=== PATIENT | female | born 1975 | race Caucasian/White ===

== ENCOUNTER 2024-01-01 11:28 | Outpatient (CLI) | payer BC, SELFPAY ==
--- NOTE | 2024-01-01 | US_ITS ---
FINAL REPORT CLINICAL HISTORY: .SPURADIC REDDNESS/DISCOLORATION OF FEET FINDINGS: COMPLETE ANKLE/BRACHIAL INDICES BILATERAL Ankle brachial indices were obtained. The right MIRNA is 1.1. The left MIRNA is 1.2. IMPRESSION: ABIs are within normal limits bilaterally. Reviewed, Interpreted and Dictated by Ishan Clements III, MD Transcribed by Mayra Christianson Authenticated and [facility]
== END 2024-01-01 23:59 | disposition home or self-care (01) ==
PROVIDERS: PCP Nurse Practitioner Family; Visit Provider Nurse Practitioner Family
DX: I73.9 Peripheral vascular disease, unspecified (principal)
CPT/HCPCS: 93923

== ENCOUNTER 2025-02-27 02:22 | Observation (INO) | payer OTHER, SELFPAY ==
[2025-02-27] VITALS (21 sets, daily range): BP systolic 111–147; BP diastolic 62–97; PULSE 18–80; RESP 14–20; TEMP 36.4–38; O2SAT 94–100; BMI 25.6; BMI 26.9
--- NOTE | 2025-02-27 02:28 | CT_ITS ---
PROCEDURE INFORMATION: Exam: CT Abdomen And Pelvis With Contrast Exam date and time: 02/27/2025 3:17 AM Age: 49 years old Clinical indication: Abdominal pain; Additional info: trouble passing gallstone , ruq pain, nausea TECHNIQUE: Imaging protocol: Computed tomography of the abdomen and pelvis with contrast. Radiation optimization: All CT scans at this facility use at least one of these dose optimization techniques: automated exposure control; mA and/or kV adjustment per patient size (includes targeted exams where dose is matched to clinical indication); or iterative reconstruction. Contrast material: ISOVUE; Contrast volume: 75 ml; Contrast route: IV; COMPARISON: US ARTERIAL LOWER EXT REST 01/01/2024 11:38 AM FINDINGS: Liver: Normal. No mass. Gallbladder and biliary ducts: The gallbladder is hydropic, no radiopaque stones are noted. Some adjacent edema is present however. The common bile duct measures 6 mm. Pancreas: Normal. No ductal dilation. Spleen: Normal. No splenomegaly. Adrenal glands: Normal. No mass. Kidneys and ureters: Normal. No hydronephrosis. Stomach and bowel: Unremarkable. No obstruction. No mucosal thickening. Appendix: No evidence of appendicitis. Intraperitoneal space: Unremarkable. No free air. No significant fluid collection. Vasculature: Unremarkable. No abdominal aortic aneurysm. Lymph nodes: Unremarkable. No enlarged lymph nodes. Urinary bladder: Unremarkable as visualized. Reproductive: Unremarkable as visualized. Bones/joints: Unremarkable. No acute fracture. Soft tissues: Unremarkable. IMPRESSION: Hydropic gallbladder with pericholecystic edema, recommend right upper quadrant ultrasound for further evaluation of possible acute cholecystitis.
--- OUTSIDE RECORDS SUMMARY | 2025-02-27 02:28 | XMS_ITS | Data Portability ---
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 Plan of Treatment Reminders Order Date Submit Date Provider Last Modified By Organization Details Last Modified Time Details Appointments None recorde d. Lab glycohe moglobi n, total, blood 2021 [facility], [address] [place] [address], [id number], 14:43:09 lipid panel, serum 2021 [facility], [address] [place] [address], [address], 14:52:46 CBC w/ auto diff 2021 022 [facility], [address] [place] [address], [address], 14:46:00 CMP, serum or plasma 2021 022 [facility], [address] [place] [address], [address], 14:52:48 TSH, serum or plasma 2021 022 [facility], [address] [place] [address], [address], 2 14:55:15 surgica l patholo gy study 2020 021 [facility], [address] [place] [address], [address], 1 09:47:02 cytolog y, vaginal /cervic al 2020 021 [facility], [address] [place] [address], [address], 1 08:32:02 HPV DNA, high-ri sk 2020 021 [facility], [address] [place] [address], [address], 1 15:35:54 Referral gastroe nterolo gist referra l 2021 [facility]22 [facility], [address], [place] [address], [place], [address], 2 09:03:57 Procedures None recorde d. Surgeries None recorde d. Imaging MAMMO, screeni ng, tomosyn thesis, bilater al, w/ CAD 2020 021 [facility], [address] [place] [address], [address], 1 10:05:08 Medication Orders famotid ine 20 mg tablet 2021 022 [email or web address] 9 [facility] [id number], [address], [id number], 2 15:40:55 bupropi on HCl XL 150 mg 24 hr tablet, extende d release 2020 021 [facility] [employer] [facility][id number], [address], [phone], 15:28:53 Patient TargetsNo targets recorded. Patient Instructions Encounter Date Encounter Id Patient Instructions Last Modified By Organization Details Last Modified Time 10/16/2020 [id number] pap smear with cotesting repeat 3y if normal mammogram scheduled menopausal symptom- discussed OTC, hormone replacement and SSRI she would like to try Wellbutrin has friends that use it and has really helped. Start wellbutrin daily cervical polyp removed today sent to pathology f/u med check 3 mos [email or web address] Not available 10/16/2020 15:32:00 11/09/2020 [id number] Risks/Benefits/O p tions/Side Effects of diagnosis and treatment discussed. 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 Not available 11/09/2020 11:30:28 11/19/2021 [id number] Body Mass Index: Care Instructions- [email or web address] Not available 11/19/2021 15:40:55 Reason for Referral Rn Document Improvement Referral for Screening for malignant neoplasm of colon Referring Physician: Sunitha Henderson, Family Medicine, Encounter Date: 11/19/2021 Results Created Date Observation Date Name Description Value Unit Range Abnormal Flag Note LastModifiedBy Organization Detail LastModifiedTime 10/17/19 21 10/16/2020 surgi elisabet patho logy study surgical SEE BELOW Depar tment of Patho logy Surgi elisabet Patho logy Repor t NAME: NERY PEDRO SA PATH. :[id number] Copy to: Diagn osis: Cervi elisabet polyp : -Juan F gn endoc ervic al gland ular polyp . SOURC E OF SPECI MEN: CERVI ELISABET POLYP CLINI ELISABET INFOR MATIO N: N84.1 Gross Descr iptio n: Recei maru in forma cristin label ed with the bie nt's name and desig nated as cerv ical polyp is a singl e fragm ent of pale kelley tissu e measu ring 0.8 cm. Entir werner submi tted in one casse tte. RACHELLE 10/17 11:10 AM Micro scopi c Descr iptio n: A micro scopi c exami natio n was perfo rmed with findi ngs as indic ated in the diagn osis. ADÁN FELIPE MD Clare d Out Date: 10/18 09:45 Page 1 of 1 Not Available [facility] [address] [place] [address], [id number], 10/18/2020 09:47:02 10/17/19 21 10/18/2020 HPV DNA, high- risk high risk HPV Not Detect ed not detect ed normal Metho dolog y: Trans cript ion-M ediat ed Ampli ficat ion This assay detec ts E6/E7 viral messe nger RNA (mRNA ) from 14 high- risk HPV types (16,1 8,31, 33,35 ,39,4 5,51, 52,56 ,58,5 9,66, 68). The rosemary tical perfo rmanc e hafsa cteri stics of this assay have been deter mined by [facility]. The modif icati ons have not been clear ed or appro maru by the FDA. This assay has been valid ated pursu ant to the CLIA regul ation s and is used for clini elisabet purpo ses. For addit ional infor orlando dangelo e refer to http: //[facility] felix ivanque stdia gnost ics.c om/fa q/FAQ 129d4 (This link if provi ded for infor laverne cook/ educa nelson l purpo ses only. ) TEST PERFO RMED AT: [facility] MAUREEN W[address]KIN[address] [address] MARYCARMEN Fox MD Not Available [facility] [place], [address], 10/18/2020 15:35:54 10/17/1910/16/2020 PAP SMEAR Pap smear SEE BELOW Depar tment of Patho logy GYNEC OLOGI ELISABET CYTOL OGY REPOR T NAME: GONZALEZ PEDROMARY HARRIS PATHO LOGY NO.: [id number] Copy to: SOURC E OF SPECI MEN: CERVI ELISABET/E NDOCE RVICA L-THI N PREP RELEV ANT HISTO RY: No LMP given . Comme nt: HPV CO-TE STING IF CHARLES L, REPEA T IN 3 YRS SPECI MEN ADEQU ACY SATIS FACTO RY FOR EVALU ATION ENDOC ERVIC AL/TR ANSFO RMATI ON ZONE COMPO NENT ABSEN T GENER AL CATEG ORIZA TION NEGAT QUEENIE FOR INTRA EPITH ELIAL LESIO N OR MALIG JOSE LUIS RELAT ED LABOR ATORY RESUL TS Test Name Resul t Colle cted D and T HIGH RISK HPV Not Detec mini 2020 15:39 ARACELI RA L DINGE SS, CT (ASCP ) Clare d Out Date: 10/19 08:30 Cervi elisabet/v agina l cytol ogy is a scree heather test with a recog nized false negat queenie rate. New techn ologi es may decre ase, but will not elimi marie false negat queenie resul ts. Regul ar cytol ogy scree heather is recom yesi d to minim ize false negat queenie resul ts. The ThinP rep(R ) Imagi ng syste m is used to harris t in prima ry cervi elisabet cance r scree heather of ThinP rep(R ) Pap test slide s. Page 1 of 1 Not Available [facility] [address] [place] [address], [address], 10/19/2020 08:32:02 11/21/19 22 11/20/2021 GLYCO HEMOG LOBIN A1C glyco HGB A1C 5.2 % 0.0-5. 6 normal Not Available [facility] [address] [place], [address], 11/20/2021 14:43:09 11/21/19 22 11/20/2021 GLYCO HEMOG LOBIN A1C estimated avg. glucose 103 mg/dL _(elisabet c) normal A1c value s betwe en 5.7% to 6.4% indic ate predi abete s. Resul ts 6.5% or great er is diagn ostic of diabe keisha. Ameri can Diabe keisha Assoc iatio n (diab etes. org) Not Available [facility] [address] [place] [address], [address], 11/20/2021 14:43:09 11/21/19 22 11/20/2021 COMPL ETE BLOOD COUNT white blood cells 6.3 K/uL 3.8-10 .8 normal Not Available [facility] [address] [place] [address], [address], 11/20/2021 14:46:00 11/21/19 22 11/20/2021 COMPL ETE BLOOD COUNT red blood cells 4.86 M/uL 3.80-5 .20 normal Not Available [facility] [address] [place] [address], [address], 11/20/2021 14:46:00 11/21/19 22 11/20/2021 COMPL ETE BLOOD COUNT hemoglobin 14.5 g/dL 12.0-1 6.0 normal Not Available [facility] [address] [place] [address], [address], 11/20/2021 14:46:00 11/21/19 22 11/20/2021 COMPL ETE BLOOD COUNT hematocrit 41.7 % 35.0-4 7.0 normal Not Available [facility] [address] [place] [address], [address], 11/20/2021 14:46:00 11/21/19 22 11/20/2021 COMPL ETE BLOOD COUNT MCV 86 fL 80-100 normal Not Available [facility] [address] [place] [address], [address], 11/20/2021 14:46:00 11/21/19 22 11/20/2021 COMPL ETE BLOOD COUNT MCH 30 pg 26-35 normal Not Available [facility] [address] [place] [address], [address], 11/20/2021 14:46:00 11/21/19 22 11/20/2021 COMPL ETE BLOOD COUNT MCHC 35 g/dL 32-36 normal Not Available [facility] [address] [place] [address], [address], 11/20/2021 14:46:00 11/21/19 22 11/20/2021 COMPL ETE BLOOD COUNT RDW 13.7 % 11.0-1 5.0 normal Not Available [facility] [address] [place] [address], [address], 11/20/2021 14:46:00 11/21/19 22 11/20/2021 COMPL ETE BLOOD COUNT MPV 8.6 fL 6.2-10 .5 normal Not Available [facility] [address] [place] [address], [address], 11/20/2021 14:46:00 11/21/19 22 11/20/2021 COMPL ETE BLOOD COUNT platelet count 261 K/uL 130-40 0 normal Not Available [facility] [address] [place] [address], [address], 11/20/2021 14:46:00 11/21/19 22 11/20/2021 COMPL ETE BLOOD COUNT neutrophil,a bsolute 3.6 K/uL 1.6-8. 4 normal Not Available [facility] [address] [place] [address], [address], 11/20/2021 14:46:00 11/21/19 22 11/20/2021 COMPL ETE BLOOD COUNT lymphocyte,a bsolute 1.9 K/uL 0.4-5. 1 normal Not Available [facility] [address] [place] [address], [address], 11/20/2021 14:46:00 11/21/19 22 11/20/2021 COMPL ETE BLOOD COUNT monocyte,abs olute 0.6 K/uL 0.0-1. 2 normal Not Available [facility] [address] [place] [address], [address], 11/20/2021 14:46:00 11/21/19 22 11/20/2021 COMPL ETE BLOOD COUNT eosinophil,a bsolute 0.2 K/uL 0.0-0. 8 normal Not Available [facility] [address] [place] [address], [address], 11/20/2021 14:46:00 11/21/19 22 11/20/2021 COMPL ETE BLOOD COUNT basophil,abs olute 0.0 K/uL 0.0-0. 3 normal Not Available [facility] [address] [place] [address], [address], 11/20/2021 14:46:00 11/21/19 22 11/20/2021 COMPL ETE BLOOD COUNT % neutrophils 56.5 % 42.0-7 8.0 normal Not Available [facility] [address] [place] [address], [address], 11/20/2021 14:46:00 11/21/19 22 11/20/2021 COMPL ETE BLOOD COUNT % lymphocytes 30.4 % 11.0-4 7.0 normal Not Available [facility] [address] [place] [address], [address], 11/20/2021 14:46:00 11/21/19 22 11/20/2021 COMPL ETE BLOOD COUNT % monocytes 9.7 % 0.0-11 .0 normal Not Available [facility] [address] [place] [address], [address], 11/20/2021 14:46:00 11/21/19 22 11/20/2021 COMPL ETE BLOOD COUNT % eosinophils 2.9 % 0.0-7. 0 normal Not Available [facility] [address] [place] [address], [address], 11/20/2021 14:46:00 11/21/19 22 11/20/2021 COMPL ETE BLOOD COUNT % basophils 0.5 % 0.0-3. 0 normal Not Available [facility] [address] [place] [address], [address], 11/20/2021 14:46:00 11/21/19 22 11/20/2021 COMPL ETE BLOOD COUNT nucleated red cells 0.0 % 0.0-0. 9 normal Not Available [facility] [address] [place] [address], [address], 11/20/2021 14:46:00 11/21/19 22 11/20/2021 COMPL ETE BLOOD COUNT nucleated RBCs, absolute 0.00 K/uL not estab. normal Not Available [facility] [address] [place] [address], [address], 11/20/2021 14:46:00 11/21/19 22 11/20/2021 LIPID PROFI LE HDL cholesterol 47 abnormal Male > 39 mg/dL Femal e > 49 mg/dL Not Available [facility] [address] [place] [address], [address], 11/20/2021 14:52:45 11/21/19 22 11/20/2021 LIPID PROFI LE triglyceride s 185 mg/dL 0-149 high TRIGL YCERI DE RANGE S CHARLES L: < 150 BORDE RLINE HIGH: 150 - 199 HIGH: 200 - 499 VERY HIGH: > OR = 500 Not Available [facility] [address] [place] [address], [address], 11/20/2021 14:52:45 11/21/19 22 11/20/2021 LIPID PROFI LE cholesterol 245 mg/dL 0-199 high HERIBERTO STERO L (TOTA L) RANGE S ADA ABLE: < 200 BORDE RLINE : 200 - 239 HIGHE R RISK: > 239 Not Available [facility] [address] [place] [address], [address], 11/20/2021 14:52:45 11/21/19 22 11/20/2021 LIPID PROFI LE LDL cholesterol 161 mg/dL _(elisabet c) 0-99 high LDL HERIBERTO STERO L RANGE S OPTIM AL: < 100 NEAR/ ABOVE OPTIM AL: 100 - 129 BORDE RLINE HIGH: 130 - 159 HIGH: 160 - 189 VERY HIGH: > OR = 190 Not Available [facility] [address] [place] [address], [address], 11/20/2021 14:52:45 11/21/19 22 11/20/2021 COMP. METAB OLIC PANEL glucose 92 mg/dL 74-100 normal Not Available [facility] [address] [place] [address], [address], 11/20/2021 14:52:48 11/21/19 22 11/20/2021 COMP. METAB OLIC PANEL blood urea nitrogen 11 mg/dL 6-20 normal Not Available [facility] [address] [place] [address], [address], 11/20/2021 14:52:48 11/21/19 22 11/20/2021 COMP. METAB OLIC PANEL creatinine 0.88 mg/dL 0.50-0 .95 normal Not Available [facility] [address] [place] [address], [address], 11/20/2021 14:52:48 11/21/19 22 11/20/2021 COMP. METAB OLIC PANEL BUN/creatini ne ratio 13 (calc ) 10-20 normal Not Available [facility] [address] [place] [address], [address], 11/20/2021 14:52:48 11/21/19 22 11/20/2021 COMP. METAB OLIC PANEL sodium 144 mmol/ L 136-14 5 normal Not Available [facility] [address] [place] [address], [address], 11/20/2021 14:52:48 11/21/19 22 11/20/2021 COMP. METAB OLIC PANEL potassium 4.6 mmol/ L 3.4-5. 0 normal Not Available [facility] [address] [place] [address], [address], 11/20/2021 14:52:48 11/21/19 22 11/20/2021 COMP. METAB OLIC PANEL chloride 105 mmol/ L 98-107 normal Not Available [facility] [address] [place] [address], [address], 11/20/2021 14:52:48 11/21/19 22 11/20/2021 COMP. METAB OLIC PANEL carbon dioxide 27 mmol/ L 22-31 normal Not Available [facility] [address] [place] [address], [address], 11/20/2021 14:52:48 11/21/19 22 11/20/2021 COMP. METAB OLIC PANEL anion gap 12 (calc ) 7-25 normal Not Available [facility] [address] [place] [address], [address], 11/20/2021 14:52:48 11/21/19 22 11/20/2021 COMP. METAB OLIC PANEL calcium 9.8 mg/dL 8.6-10 .2 normal Not Available [facility] [address] [place] [address], [address], 11/20/2021 14:52:48 11/21/19 22 11/20/2021 COMP. METAB OLIC PANEL total protein 7.0 g/dL 6.4-8. 3 normal Not Available [facility] [address] [place] [address], [address], 11/20/2021 14:52:48 11/21/19 22 11/20/2021 COMP. METAB OLIC PANEL albumin 4.6 g/dL 3.5-5. 2 normal Not Available [facility] [address] [place] [address], [address], 11/20/2021 14:52:48 11/21/19 22 11/20/2021 COMP. METAB OLIC PANEL globulin 2.4 g/dL_ (calc ) 1.5-4. 5 normal Not Available [facility] [address] [place] [address], [address], 11/20/2021 14:52:48 11/21/19 22 11/20/2021 COMP. METAB OLIC PANEL albumin/glob ulin ratio 1.9 (calc ) 1.1-2. 5 normal Not Available [facility] [address] [place] [address], [address], 11/20/2021 14:52:48 11/21/19 22 11/20/2021 COMP. METAB OLIC PANEL bilirubin, total 0.4 mg/dL 0.1-1. 2 normal Not Available [facility] [address] [place] [address], [address], 11/20/2021 14:52:48 11/21/19 22 11/20/2021 COMP. METAB OLIC PANEL alkaline phosphatase 71 U/L 30-121 normal Not Available [facility] [address] [place] [address], [address], 11/20/2021 14:52:48 11/21/19 22 11/20/2021 COMP. METAB OLIC PANEL AST 17 U/L 0-32 normal Not Available [facility] [address] [place] [address], [address], 11/20/2021 14:52:48 11/21/19 22 11/20/2021 COMP. METAB OLIC PANEL ALT 20 U/L 0-33 normal Not Available [facility] [address] [place] [address], [address], 11/20/2021 14:52:48 11/21/19 22 11/20/2021 COMP. METAB OLIC PANEL GFR 81 >= 60 normal NOT E New calcu latio n for GFR (CKD- EPI 2020) is formu lated witho ut race adjus tment facto rs at the recom menda tion of the [employer] y [employer] ation and Amguilherme Ruanoe ty of Nephr ology . This calcu latio n has not been valid ated in pregn ant women . For pedia tric patie nts refer to https ://ww w.kid jose miguel.o rg/pr ofess ional s/KDO QI/gf r_cal culat orPed Not Available [facility] [address] [place] [address], [address], 11/20/2021 14:52:48 11/21/19 22 11/20/2021 TSH TSH 2.750 uIU/m L 0.270- 4.200 normal Not Available [facility] [address] [place] [address], [address], 11/20/2021 14:55:15 11/01/19 21 10/18/2020 MAMMO , scree heather, tomos ynthe sis, bilat eral, w/ CAD [facility] [address] [place] [address] Cecilia howard Name: JACOB howard : [birth year] Age: 45 years Patileyda howard 36 Orderi ng Provid er: JYOTSNA ANDERSEN DS EXAM DATE: 2020 EXAM: MG SCREEN ING RANDOLPH MAMMOG GENOVEVA INDICA TION: Routin e screen ing. PROCED URE: Multis lice imagin g of both breast s was perfor med in standa rd projec tions using Hologi c Seleni a Dimens ions tomosy nthesi s equipm ent (3D mammog cale) . 2D images were create d from the 3D datase t using C-View softwa re. The study was read with the assist ance of Comput er Aided Detect ion (CAD) softwa re. COMPAR MUSHTAQ: This was compar ed with previo us mammog kyle dated FINDIN GS: The breast s are hetero geneou sly dense. This may lower the sensit ivity of mammog cale. There is no suspic ious mass or cluste r of calcif icatio ns. No rajni ectura l distor tion. IMPRES ALEXA: BI-RAD S catego ry 1, Negati ve. There is no eviden ce of malign natty. Screen ing mammog kyle are recomm ended in one year. Result s were mailed or given to the patien t. Interp reted By: Robb Hawkins MD Electr onical ly Signed By: Robb Hawkins MD on 11/01/19 9:59 AM [facility] [address], [address], 10/31/2020 16:25:11 Result Notes Documentation Provider Name and Address Organization Details Recorded Time Mammo, Screening, Tomosynthesis, Bilateral, W/ Cad : [address] [address] Patient Name: MELISSA BLACK Patient : 1975 Age: 45 years Patient Ordering Provider: MELANIE LR EXAM DATE: 10/18/2020 EXAM: MG SCREENING RANDOLPH MAMMOGRAM INDICATION: Routine screening. PROCEDURE: Multislice imaging of both breasts was performed in standard projections using Going [employer] tomosynthesis equipment (3D mammography). 2D images were created from the 3D dataset using C-View software. The study was read with the assistance of Computer Aided Detection (CAD) software. COMPARISON: This was compared with previous mammograms dated FINDINGS: The breasts are heterogeneously dense. This may lower the sensitivity of mammography. There is no suspicious mass or cluster of calcifications. No architectural distortion. IMPRESSION: BI-RADS category 1, Negative. There is no evidence of malignancy. Screening mammograms are recommended in one year. Results were mailed or given to the patient. Interpreted By: Robb Hawkins MD ARET ANAYA PA-C [address] [place] [address], [phone], [facility] 10/31/2020 11:50:12 Problems Name Problem SNOMED Code Status Onset Date Resolution Date Notes Provider Name and Address Organization Details Recorded Time Menopausal syndrome 129261317 Active 2021 SUNITHA HENDERSON MD [address] [place] [address], [address] , [facility] 2 13:16:04 Dyslipidemia 599543230 Active 2021 ASCVD risk 1.6% SUNITHA HENDERSON MD [address] [place], [address] , [facility] 2 16:31:20 Body mass index 25-29 - overweight 731858546 Active 2021 SUNITHA HENDERSON MD [facility] [place], [address] , [facility] 2 17:09:19 Problem Notes None recorded. Procedures Surgical History Date Name Laterality Status Provider Name and Address Organization Details Recorded Time 1 Destruction BN Lesions completed Patricia Edouard [facility] 11/09/2020 11:52:08 1 Pap Smear collection completed MELANIE LR APRN [address] [place] [address], [address] [place] [address] 10/16/2020 15:20:35 1 Cervical Polypectomy completed MELANIE LR APRN [address] [place], [address] [place] [address] 10/16/2020 15:32:34 1 Date of Last Pap Smear completed Gail Herman [facility] 10/26/2020 08:25:03 Imaging Results None recorded. Procedure Notes None recorded. Medical Equipment None Reported. Allergies Allergen ID Allergen Name Allergen Category Reaction Reaction Severity Criticality Documentation Date Start Date Code Code System Note Provider Name and Address Organization Details Recorded Time 617985 Product containin g penicilli n (product) medicatio n Not available Not available Not available 10/16/2020 [address] 8001 [facility] 14:55:14 Medications Name Sig Start Date Stop Date Status Note LastModified by Organization Details LastModified Time famotidine 20 mg tablet TAKE 1 TABLET BY MOUTH TWICE DAILY NEEDED active Not Available Not Available No t Available bupropion HCl XL 150 mg 24 hr tablet, extended release TAKE 1 TABLET BY MOUTH EVERY DAY active Not Available Not Available No t Available Wellbutrin 11/09 completed Not Available Not Available Not Available Suprep Bowel Prep Kit 17.5 gram-3.13 gram-1.6 gram oral solution take as directed 2021 active Not Available Not Available Not Avai lable Qsymia 3.75 mg-23 mg capsule, extended release Take by oral route for 14 days. 01/25 completed Not Available Not Available Not Available Saxenda 3 mg/0.5 mL (18 mg/3 mL) subcutaneou s pen injector 12/17 completed Not Available Not Available Not Available Wegovy 0.25 mg/0.5 mL subcutaneou s pen injector Inject 0.5 mL every week by subcutane ous route for 30 days. 2021 active Not Available Not Available Not Avai lable Vitals Date Recorded Body weight Systolic And Diastolic Provider Name and Address Organization Details Last Updated DateTime 10/16/2020 01475.78 g 110/76 mm[Hg] Julian [facility] 10/16/2020 15:05:09 Date Recorded Body weight Body mass index (BMI) Body height Respiratory rate Heart rate Oxygen saturation Oxygen saturation in Arterial blood by Pulse oximetry Body temperature Systolic And Diastolic Provider Name and Address Organization Details Last Updated DateTime 05930.3 7 g 29.4 kg/m2 157.48 cm 16 /min 84 /min 98 % 98 % 99.1 [degF] 124/82 mm[Hg] Michelle Mckee [facility] 15:09:59 Social History None recorded. Functional Status None recorded. Mental Status None recorded. Family History Relationship Description Onset Age of this Age Resolved Age Notes LastModified by Organization Details LastModified Time Unspecified Relation Family history of cancer of colon GRANDF ATHER/ GRANDM OTHER Not available 11/19/2021 15:14:23 Unspecified Relation Myocardial infarction GRANDM OTHER, GREAT GRANDF ATHER, MOTHER Not available 11/19/2021 15:15:30 Mother Disorder of thyroid gland [email or web address] Not available 2021 15:15:53 Medical History Condition Response GERD/Reflux Y Gynecological History Statement/Question Response Abnormal Pap Y Date of LMP Sexually Active? Y Menses Monthly N STIs/STDs N HPV Vaccine N Date of Last Pap Smear 10/16/2020 Most Recent Mammogram Obstetrics History GPAL:G 3 P 3 0 0 0 Type Value Full Term 3 Total 3 Past Encounters Encounter ID Performer Location Encounter Start Date Encounter Closed Date Diagnosis/Indication Diagnosis SNOMED-CT Code Diagnosis ICD10 Code Diagnosis IMO Codes Diagnosis Note [id number] MELANIE LR APRN DECK LID FITTER SB CLOSED [address] [place] [address] 10/16/2020 14:34:26 10/16/2020 15:35:22 Routine gynecologic examination done 4992462994 9101 Z01.419 Screening for malignant neoplasm of cervix 867088910 Z12.4 Infection screening 2437 64993 Z11.51 Screening for malignant neoplasm of breast 341941193 Z12.31 Menopausal syndrome 1237 81186 N95.9 Polyp at cervical os 248 084159 N84.1 [id number] PANTERA ROSSI PA-C [facility] [address] [place] [address] 11/09/2020 11:18:06 11/09/2020 12:26:02 Inflamed seborrheic keratosis 397938983 L82.0 CRYO X 1 LEFT FRONTAL SCALPPT ADVISED WHAT TO EXPECT FROM FREEZINGF/ U IF DOES NOT RESOLVE Multiple b enign melanocytic nevi 192115325 D22.9 BENIGN APPEARANCE ; PT REASSURED; MONITOR CLOSELY FOR CHANGESOBT AINED PHOTOGRAPH S TODAYRECOM MENDED FSE IN A FEW MONTHS TO RE-EVALUAT E NEVUS ON LEFT UPPER ABDOMEN FOR POSSIBLE BX ONCE SUMMER IS OVERF/U IN MARCH FOR FSE OR SOONER IF ANY NEW OR CHANGING LESIONS Solar lentiginosis 37545 2006 L81.4 BENIGN APPEARANCE ; PT REASSUREDR ECOMMENDED SUN PROTECTIVE CLOTHING/H ATS AND OTC SPF 30+ EQUATE SPORT OR BLUE LIZARD SUNSCREEN DAILY [id number] SUNITHA HENDERSON MD [address] [address] 11/19/2021 14:50:43 11/21/2021 12:38:13 Adult health examination 781798015 Z00.00 Discussed the importance of a healthy lifestyle for the improvemen t/maintena nce of overall physical health, the prevention of major morbidity/ disease, and improvemen t of the patient's overall sense of physical and emotional well being. Counseled regarding contracept queenie options, and need for contracept ion until no menses for 1 year. Recommend annual dental and eye exams. Recommend to wear sunscreen. Reviewed calcium needs, exercise, and prevention of osteoporos is. Reviewed normal perimenopa usal transition . Mammogram recommende d yearly. Colonoscop y recommende d at age 45. HM:Mammogr am (40/50-74y F): done 10/16, due 2024Pap smear (21-65yF): done 10/15Colon Cancer Screen (45-75y): FHx colon cancer, not done, dueBone Density (65yF): not indicatedI nfluenza (q1y): declinedTe tanus (q10y): counseledP neumonia (65y): not indicatedZ darwin (50y): not indicatedH ep C/HIV (1x-70): screenedSm oker (Lung Cancer 50y/AAA 65-75yM): noOverweig ht/Obesity (35-70y): yes Screening for malignant neoplasm of colon 220431486 Z12.11 Body mass index 25-29 - overweight 749621605 Z68.29 Gastroesop hageal reflux disease without esophagitis 522996821 K21.9 trial of famotidine f/u 6 months Unintentio nal weight gain [id number] 31200 R63.5 will check labsrecomm end reducing caloric intake and exercise Screening mammography 24 977637 Z12.31 UTD 09/2021 Screening for malignant neoplasm of cervix 662348349 Z12.4 UTD 09/2020 Health Concerns Section Related Observation LastModified by Organization Detai ls LastModified Time None Recorded Concern Status LastModified by Organization Details LastModified Time None Recorded Advance Directives Directive None Recorded Payers Insurance Date Sequence Insurance Name Policy Number Policy Miranda Covered Member ID Miranda Member ID Guarantor Name 07/08/2022 1 [place] [id number] Melissa Black [id number] Melissa Black 07/19/2022 1 [place] [id number] Melissa Oh [id number] Melissa Black 11/18/2021 1 [place] [id number] Orlando Black [id number] Melissa Black 06/05/2022 1 [facility] [id number] Orlando Black [id number] Melissa Black Notes Date Note Type Note Provider Name and Address Organization Details Recorded Time 10/16/2020 text/html [facility] Annual Has been told Uterus is tilted Mood and weight gain symptoms, tired all the time etc Wants to establish care Last pap- long time ago- before having daughter about 5 years ago 2016 mammogram about 8 years ago no family h/o gynaecological oncologist ca MELANIE LR, HSPT TUTOR [address] [place], [address], [facility] 10/16/2020 15:33:22 11/09/2020 text/html ROS as noted in the [facility] NEW PATIENT 1) PT C/O LESION ON SCALP X ? (-)ITCH/BLEED/MEY N. PT HAD HER HAIR DONE 8 WEEKS AGO WHEN HER TAP PULLER NOTICED LESION. NO TX 2) CHECK BACK PT DECLINED FSE no issues with bleeding, scarring, or healing Denies any other new, changing, or bleeding lesions, or other rashes, feels well, in a good mood, and has no family history of melanoma. PANTERA ROSSI PA-C [address] [place], [address], [facility] 11/09/2020 12:33:23 11/19/2021 text/html ROS as noted in the HPI 46-year-old female new patient with history of menopausal syndrome presents to establish care for annual wellness check and physical exam. She moved her from [place] about 5 years ago and has not had a PCP in the mean time. She sees Gynecology. She reports occasional alcohol use. She denies smoking history. #weight gain: She states she has gained some weight recently and states that she has a family history of thyroid issues. She states she stayed around 130lbs in the past. She weighs 160lbs today. She doesn't exercise much. She states she eats a regular diet. #heartburn: She reports some recent heartburn. She reports family history of cardiac disorders. She notices it more at night when lying down. She denies arm pain. She states it is worse when drinking pop. She states it is intermittent. She states it gets better with Tums. #menopausal syndrome: She is taking wellbutrin. SUNITHA HENDERSON MD [address] [place], [address], [facility] 11/19/2021 15:41:35 OBGyn Episode No OBEpisode recorded.
--- OUTSIDE RECORDS SUMMARY | 2025-02-27 02:28 | XMS_ITS | Data Portability ---
Author Organization [facility] Address [address] [place] [address] Assessment No assessment recorded. Plan of Treatment Reminders Order Date Submit Date Provider Last Modified By Organization Details Last Modified Time Details Appointments None recorded. Lab lipid panel, serum 2023 [facility], [address], [address], [place], [address], 4 11:09:02 CBC w/ auto diff 2023 024 DORINDA [facility], [address], [address], [place], [address], 4 11:09:01 CMP, serum or plasma 2023 024 DORINDA [facility], [address], [address] [address], [place], [address], 4 11:09:02 TSH + free T4, serum 2023 024 [place] [facility], [address], [address] [address], [place], [address], 4 11:09:00 Referral None recorded. Procedures venipunctur e routine (PROC) 2023 024 cbuckler Not available 13:24:44 Surgeries None recorded. Imaging None recorded. Medication Orders bupropion HCl 75 mg tablet 2023 024 [facility], [address] [place], [address], 15:31:46 Patient TargetsNo targets recorded. Patient Instructions Encounter Date Encounter Id Patient Instructions Last Modified By Organization Details Last Modified Time 10/26/2023 [id number] (MIRNA) ankle brachial index* - NO PA REQUIRED FOR CPT CODE 90574 per BCBS automated system ( no ref # was given) DORINDA Not available 01/01/2024 13:43:55 Reason for Referral None Reported. Results Created Date Observation Date Name Description Value Unit Range Abnormal Flag Note LastModifiedBy Organization Detail LastModifiedTime 10/27/1910/28/2023 TSH+F REE T4 TSH 3.870 uIU/m L 0.450- 4.500 Not Available [facility] ([facility]) [address] [place], [address], 10/28/2023 11:09:00 10/27/19 24 10/28/2023 TSH+F REE T4 T4,free(dire ct) 0.91 NG/dL 0.82-1 .77 Not Available [facility] ([facility]) [address] [place], [address], 10/28/2023 11:09:00 10/27/19 24 10/28/2023 CBC WITH DIFFE RENTI AL/PL ATELE T WBC 6.0 x10e3 /uL 3.4-10 .8 Not Available [facility] ([facility]) [address] [place], [address], 10/28/2023 11:09:01 10/27/19 24 10/28/2023 CBC WITH DIFFE RENTI AL/PL ATELE T RBC 4.83 x10e6 /uL 3.77-5 .28 Not Available [facility] ([facility]) [address] [place], [address], 10/28/2023 11:09:01 10/27/19 24 10/28/2023 CBC WITH DIFFE RENTI AL/PL ATELE T hemoglobin 14.3 g/dL 11.1-1 5.9 Not Available [facility] ([facility]) [address] [facility], [place], [address], 10/28/2023 11:09:01 10/27/19 24 10/28/2023 CBC WITH DIFFE RENTI AL/PL ATELE T hematocrit 42.3 % 34.0-4 6.6 Not Available [facility] ([facility]) [address] [facility], [place], [address], 10/28/2023 11:09:01 10/27/19 24 10/28/2023 CBC WITH DIFFE RENTI AL/PL ATELE T MCV 88 fL 79-97 Not Available [facility] ([facility]) [address] [facility], [place], [address], 10/28/2023 11:09:01 10/27/19 24 10/28/2023 CBC WITH DIFFE RENTI AL/PL ATELE T MCH 29.6 pg 26.6-3 3.0 Not Available [facility] ([facility]) [address] [place], [address], 10/28/2023 11:09:01 10/27/19 24 10/28/2023 CBC WITH DIFFE RENTI AL/PL ATELE T MCHC 33.8 g/dL 31.5-3 5.7 Not Available [facility] ([facility]) [address] [place], [address], 10/28/2023 11:09:01 10/27/19 24 10/28/2023 CBC WITH DIFFE RENTI AL/PL ATELE T RDW 12.6 % 11.7-1 5.4 Not Available [facility] ([facility]) [address] [place], [address], 10/28/2023 11:09:01 10/27/19 24 10/28/2023 CBC WITH DIFFE RENTI AL/PL ATELE T platelets 257 x10e3 /uL 150-45 0 Not Available [facility] ([facility]) [address] [facility], [place], [address], 10/28/2023 11:09:01 10/27/19 24 10/28/2023 CBC WITH DIFFE RENTI AL/PL ATELE T neutrophils 56 % not estab. Not Available [facility] ([facility]) [address] [facility], [place], [address], 10/28/2023 11:09:01 10/27/19 24 10/28/2023 CBC WITH DIFFE RENTI AL/PL ATELE T lymphs 31 % not estab. Not Available [facility] ([facility]) [address] [facility], [place], [address], 10/28/2023 11:09:01 10/27/19 24 10/28/2023 CBC WITH DIFFE RENTI AL/PL ATELE T monocytes 8 % not estab. Not Available [facility] ([facility]) [address] [facility], [place], [address], 10/28/2023 11:09:01 10/27/19 24 10/28/2023 CBC WITH DIFFE RENTI AL/PL ATELE T eos 4 % not estab. Not Available [facility] ([facility]) [address] [facility], [place], [address], 10/28/2023 11:09:01 10/27/19 24 10/28/2023 CBC WITH DIFFE RENTI AL/PL ATELE T basos 1 % not estab. Not Available [facility] ([facility]) [address] [facility], [place], [address], 10/28/2023 11:09:01 10/27/19 24 10/28/2023 CBC WITH DIFFE RENTI AL/PL ATELE T immature cells VOCATIONAL GUIDANCE COUNSELOR Not Available [facility] ([facility]) [address] [facility], [place], [address], 10/28/2023 11:09:01 10/27/19 24 10/28/2023 CBC WITH DIFFE RENTI AL/PL ATELE T neutrophils (absolute) 3.3 x10e3 /uL 1.4-7. 0 Not Available [facility] ([facility]) [address] [facility], [place], [address], 10/28/2023 11:09:01 10/27/19 24 10/28/2023 CBC WITH DIFFE RENTI AL/PL ATELE T lymphs (absolute) 1.9 x10e3 /uL 0.7-3. 1 Not Available [facility] ([facility]) [address] [facility], [place], [address], 10/28/2023 11:09:01 10/27/19 24 10/28/2023 CBC WITH DIFFE RENTI AL/PL ATELE T monocytes(ab solute) 0.5 x10e3 /uL 0.1-0. 9 Not Available [facility] ([facility]) [address] [facility], [place], [address], 10/28/2023 11:09:01 10/27/19 24 10/28/2023 CBC WITH DIFFE RENTI AL/PL ATELE T eos (absolute) 0.2 x10e3 /uL 0.0-0. 4 Not Available [facility] ([facility]) [address] [facility], [place], [address], 10/28/2023 11:09:01 10/27/19 24 10/28/2023 CBC WITH DIFFE RENTI AL/PL ATELE T baso (absolute) 0.0 x10e3 /uL 0.0-0. 2 Not Available [facility] ([facility]) [address] [place], [address], 10/28/2023 11:09:01 10/27/19 24 10/28/2023 CBC WITH DIFFE RENTI AL/PL ATELE T immature granulocytes 0 % not estab. Not Available [facility] ([facility]) [address] [facility], [place], [address], 10/28/2023 11:09:01 10/27/19 24 10/28/2023 CBC WITH DIFFE RENTI AL/PL ATELE T immature grans (abs) 0.0 x10e3 /uL 0.0-0. 1 Not Available [facility] ([facility]) [address] [facility], [place], [address], 10/28/2023 11:09:01 10/27/19 24 10/28/2023 CBC WITH DIFFE RENTI AL/PL ATELE T NRBC VOCATIONAL GUIDANCE COUNSELOR Not Available [facility] ([facility]) [address] [facility], [place], [address], 10/28/2023 11:09:01 10/27/19 24 10/28/2023 CBC WITH DIFFE RENTI AL/PL ATELE T hematology comments: VOCATIONAL GUIDANCE COUNSELOR Not Available [facility] ([facility]) [address] [facility], [place], [address], 10/28/2023 11:09:01 10/27/19 24 10/28/2023 COMP. METAB OLIC PANEL (14) glucose 83 mg/dL 70-99 Not Available [facility] ([facility]) [address] [facility], [place], [address], 10/28/2023 11:09:02 10/27/19 24 10/28/2023 COMP. METAB OLIC PANEL (14) BUN 10 mg/dL 6-24 Not Available [facility] ([facility]) [address] [facility], [place], [address], 10/28/2023 11:09:02 10/27/19 24 10/28/2023 COMP. METAB OLIC PANEL (14) creatinine 0.94 mg/dL 0.57-1 .00 Not Available [facility] ([facility]) [address] [facility], [place], [address], 10/28/2023 11:09:02 10/27/19 24 10/28/2023 COMP. METAB OLIC PANEL (14) eGFR 74 mL/mi n/1.7 3 >59 Not Available [facility] ([facility]) [address] [facility], [place], [address], 10/28/2023 11:09:02 10/27/19 24 10/28/2023 COMP. METAB OLIC PANEL (14) BUN/creatini ne ratio 11 9-23 Not Available [facility] ([facility]) [address] [facility], [place], [address], 10/28/2023 11:09:02 10/27/19 24 10/28/2023 COMP. METAB OLIC PANEL (14) sodium 142 mmol/ L 134-14 4 Not Available [facility] ([facility]) [address] [facility], [place], [address], 10/28/2023 11:09:02 10/27/19 24 10/28/2023 COMP. METAB OLIC PANEL (14) potassium 4.2 mmol/ L 3.5-5. 2 Not Available [facility] ([facility]) [address] [facility], [place], [address], 10/28/2023 11:09:02 10/27/19 24 10/28/2023 COMP. METAB OLIC PANEL (14) chloride 106 mmol/ L 96-106 Not Available [facility] ([facility]) [address] [facility], [place], [address], 10/28/2023 11:09:02 10/27/19 24 10/28/2023 COMP. METAB OLIC PANEL (14) carbon dioxide, total 25 mmol/ L 20-29 Not Available [facility] ([facility]) [address] [facility], [place], [address], 10/28/2023 11:09:02 10/27/19 24 10/28/2023 COMP. METAB OLIC PANEL (14) calcium 9.2 mg/dL 8.7-10 .2 Not Available [facility] ([facility]) [address] [facility], [place], [address], 10/28/2023 11:09:02 10/27/19 24 10/28/2023 COMP. METAB OLIC PANEL (14) protein, total 6.5 g/dL 6.0-8. 5 Not Available [facility] ([facility]) [address] [facility], [place], [address], 10/28/2023 11:09:02 10/27/19 24 10/28/2023 COMP. METAB OLIC PANEL (14) albumin 4.2 g/dL 3.9-4. 9 Not Available [facility] ([facility]) [address] [facility], [place], [address], 10/28/2023 11:09:02 10/27/19 24 10/28/2023 COMP. METAB OLIC PANEL (14) globulin, total 2.3 g/dL 1.5-4. 5 Not Available [facility] ([facility]) [address] [facility], [place], [address], 10/28/2023 11:09:02 10/27/19 24 10/28/2023 COMP. METAB OLIC PANEL (14) bilirubin, total 0.4 mg/dL 0.0-1. 2 Not Available [facility] ([facility]) [address] [facility], [place], [address], 10/28/2023 11:09:02 10/27/19 24 10/28/2023 COMP. METAB OLIC PANEL (14) alkaline phosphatase 64 IU/L 44-121 Not Available [facility] ([facility]) [address] [facility], [place], [address], 10/28/2023 11:09:02 10/27/19 24 10/28/2023 COMP. METAB OLIC PANEL (14) AST (SGOT) 14 IU/L 0-40 Not Available [facility] ([facility]) [address] [facility], [place], [address], 10/28/2023 11:09:02 10/27/19 24 10/28/2023 COMP. METAB OLIC PANEL (14) ALT (SGPT) 11 IU/L 0-32 Not Available [facility] ([facility]) [address] [place], [address], 10/28/2023 11:09:02 10/27/19 24 10/28/2023 LIPID PANEL cholesterol, total 211 mg/dL 100-19 9 above high normal Not Available [facility] ([facility]) [address] [place], [address], 10/28/2023 11:09:02 10/27/19 24 10/28/2023 LIPID PANEL triglyceride s 109 mg/dL 0-149 Not Available [facility] ([facility]) [address] [place], [address], 10/28/2023 11:09:02 10/27/19 24 10/28/2023 LIPID PANEL HDL cholesterol 50 mg/dL >39 Not Available [facility] ([facility]) [address] [facility], [place], [address], 10/28/2023 11:09:02 10/27/19 24 10/28/2023 LIPID PANEL VLDL cholesterol elisabet 20 mg/dL 5-40 Not Available [facility] ([facility]) [address] [place], [address], 10/28/2023 11:09:02 10/27/19 24 10/28/2023 LIPID PANEL LDL chol calc ([facility]) 141 mg/dL 0-99 above high normal Not Available [facility] ([facility]) [address] [place], [address], 10/28/2023 11:09:02 10/27/19 24 10/28/2023 LIPID PANEL LDL calc comment: VOCATIONAL GUIDANCE COUNSELOR Not Available [facility] ([facility]) [address], [place], [address], 10/28/2023 11:09:02 01/01/20 24 01/01/2024 (MIRNA) ankle brach ial index * No observ ation record ed. [facility] [address], [place], [address], 01/04/2024 12:39:14 Result Notes None recorded. Problems No Known Problems Procedures Surgical History Date Name Laterality Status Provider Name and Address Organization Details Recorded Time section completed Yane García [place] - [facility] 05/05/2023 14:49:58 Imaging Results None recorded. Procedure Notes None recorded. Medical Equipment None Reported. Allergies Allergen ID Allergen Name Allergen Category Reaction Reaction Severity Criticality Documentation Date Start Date Code Code System Note Provider Name and Address Organization Details Recorded Time 77412 Product containin g penicilli n (product) medicatio n hives Not available Not available 02/01/20162014 55087 8001 SNOMED React ion: hives ; Not Available [facility] 6 08:33:14 Medications Name Sig Start Date Stop Date Status Note LastModified by Organization Details LastModified Time buspirone 5 mg tablet TAKE 1 TABLET BY MOUTH TWICE DAILY NEEDED 05/05 completed Not Available Not Available Not Available clindamyc in HCl 300 mg capsule TAKE 1 CAPSULE BY MOUTH THREE TIMES DAILY FOR 10 DAYS 05/05 completed Not Available Not Available Not Available ibuprofen 800 mg tablet TAKE 1 TABLET BY MOUTH EVERY 6 TO 8 HOURS active Not Available Not Available No t Available clindamyc in HCl 150 mg capsule TAKE 1 CAPSULE BY MOUTH THREE TIMES DAILY UNTIL GONE 10/25 completed Not Available Not Available Not Available bupropion HCl 75 mg tablet Take 1 tablet by mouth twice daily 2024 active Not Available Not Available Not Avai lable methylpre dnisolone 4 mg tablets in a dose pack FOLLOW PACKAGE DIRECTIO NS 05/05 completed Not Available Not Available Not Available cefdinir 300 mg capsule TAKE 1 CAPSULE BY MOUTH TWICE DAILY FOR 7 DAYS 05/05 completed Not Available Not Available Not Available iFerex 150 Forte 150 mg-25 mcg-1 mg capsule take 1 capsule by oral route twice daily 08/20 completed iFerex 150 Forte 150-25-1 mg-mcg-m g oral capsule; comment: mistake; Recorded Status: Recorded on: 08/21/19 16 10:17AM; Disconti nued Status: Disconti nued on: 08/21/19 16 10:20AM; User: Olena Barragan on: 01/18/20 16;Indic ation: Iron Deficien cy Anemia - (280) Not Available Not Available Not Available 27 mg iron-0.8 mg tablet take 1 tablet by oral route once daily 05/05 completed 27-0.8 mg oral tablet;R ecorded Status: Recorded on: 02/27/20 15 3:13PM;U ser: [email or web address] Not Available Not Available Not Available aspirin 81mg daily active Not Available Not Available No t Available GaviLyte- G 236 gram-22.7 4 gram-6.74 gram-5.86 gram oral solution Take as directed by Dr. Mcelroy's office. 05/05 completed Not Available Not Available Not Available Mounjaro 2.5 mg/0.5 mL subcutane ous pen injector INJECT 1 SYRINGE SUBCUTAN EOUSLY ONCE A WEEK active Not Available Not Available No t Available Vitals Date Recorded Body height Body mass index (BMI) Body weight Body temperature Heart rate Oxygen saturation Oxygen saturation in Arterial blood by Pulse oximetry Respiratory rate Pain severity - 0-10 verbal numeric rating [Score] - Reported Systolic And Diastolic Provider Name and Address Organization Details Last Updated DateTime 4 157.48 cm 25.9 kg/m2 98009.6 2 g 97.5 [degF] 94 /min 98 % 98 % 18 /min 0 118/70 mm[Hg] Yane VASQUEZ - [facility] 4 14:38:44 Date Recorded Body height Body mass index (BMI) Body weight Body temperature Heart rate Oxygen saturation Oxygen saturation in Arterial blood by Pulse oximetry Respiratory rate Pain severity - 0-10 verbal numeric rating [Score] - Reported Systolic And Diastolic Provider Name and Address Organization Details Last Updated DateTime 4 157.48 cm 24.7 kg/m2 94663.9 7 g 97.9 [degF] 80 /min 98 % 98 % 18 /min 0 132/78 mm[Hg] Yane García [place] - [facility] 15:32:30 Date Recorded Body height Provider Name an d Address Organization Details Last Updated DateTime 10/27/2023 157.48 cm Yane García [place] - [facility] 0 10/27/2023 10:02:51 Social History Question Answer Notes LastModified by Organizat ion Details LastModified Time Tobacco Smoking Status Never Smoker Yane García null, [place] - [facility] 05/05/2023 14:48:21 Do You Have An Advance Directive? No Information n ot available 05/05/2023 Are You Blind Or Do You Have Difficulty Seeing? No Information n ot available 05/05/2023 What Is Your Level Of Caffeine Consumption? Occasional Information not available 05/05/2023 In The 14 Days Before Symptom Onset, Have You Had Close Contact With A Laboratory-confirm ed COVID-19 While That Case Was Ill? No Information n ot available 05/05/2023 In The 14 Days Before Symptom Onset, Have You Had Close Contact With A Person Who Is Under Investigation For COVID-19 While That Person Was Ill? No Information not available 05/05/2023 Have You Been To An Area Known To Be High Risk For COVID-19? No Information not available 05/05/2023 Are You Deaf Or Do You Have Serious Difficulty Hearing? No Information not available 05/05/2023 Have You Processed Blood Or Body Fluids From An Ebola Virus Disease Patient Without Appropriate PPE? No Information not available 05/05/2023 Do You Reside In Or Have You Traveled To An Area Where Ebola Virus Transmission Is Active? No Information not available 05/05/2023 Have There Been Any Changes To Your Family Or Social Situation? No Information no t available 05/05/2023 Have You Recently Or Are You Planning To Travel To An Area With Zika Virus? No Information not available 05/05/2023 Do You Have A Medical Power Of Supervisor Tank Storage? No Information not available 05/05/2023 What Was The Date Of Your Most Recent Tobacco Screening? 05/05/2023 Information not available 05/05/2023 What Is Your Relationship Status? Information not available 05/05/2023 Are You Sexually Active? Yes Information not available 05/05/2023 Do You Have Smoke And Carbon Monoxide Detectors In Your Home? No Information not available 05/05/2023 Are You Passively Exposed To Smoke? No Information no t available 05/05/2023 Has Tobacco Cessation Counseling Been Provided? No Information not available 05/05/2023 Do You Have Difficulty Walking Or Climbing Stairs? No Information not available 05/05/2023 Sex: Female Functional Status Question Answer Note LastModified by Organizat ion Details LastModified Time How many times per week do you consume alcohol? Less than 1 time per week Information not available 05/05/2023 Do you use any illicit or recreational drugs? No Information not available 05/05/2023 Do you or have you ever used any other forms of tobacco or nicotine? No Information not available 05/05/2023 What is your level of alcohol consumption? Occasional Information not available 05/05/2023 Do you have transportation difficulties? No Information not available 05/05/2023 Are you able to walk independently without assistance or assistive devices? YESWOREST Information not available 05/05/2023 Do you have difficulty doing errands alone? No Information not available 05/05/2023 Are you able to care for yourself independently? Yes Information not available 05/05/2023 Do you have difficulty dressing, bathing, grooming, or toileting? No Information not available 05/05/2023 Mental Status Question Answer Note LastModified by Organization D etails LastModified Time Do you have difficulty concentrating, remembering or making decisions? No Information no t available 05/05/2023 Family History Relationship Description Onset Age of this Age Resolved Age Notes LastModified by Organization Details LastModified Time Mother Myocardial infarction 47 [email or web address] Not available 05/05 14:47:37 Paternal Grandfather Abdominal aortic aneurysm cbuckler Not available 2023 15:37:30 Medical History No medical history recorded. Gynecological History Statement/Question Response Abnormal Pap N If Post Menopausal, Age at Menopause 42 Date of Last Mammogram Sexually Active? Y Menses Monthly N Date of Last Pap Smear Current Control Method Tubal Ligat ion LMP Unknown Obstetrics History GPAL:G 3 P 3 0 0 3 Type Value Multiple Births 0 Full Term 3 Induced 0 Spontaneous 0 Premature 0 Living 3 Ectopics 0 Total 3 Immunizations Vaccine Type Date Status Note Provider Nam e and Address Organization Details Recorded Time influenza, unspecified formulation 5 completed Yane García null, [place] - [facility] 05/05/2023 14:39:14 Tdap 6 completed Yane García null, [place] - [facility] 05/05/2023 14:39:14 COVID-19, mRNA, LNP-S, PF, 100 mcg/0.5mL dose or 50 mcg/0.25mL dose 1 completed Yane García null, [place] - [facility] 05/05/2023 14:39:14 COVID-19, mRNA, LNP-S, PF, 100 mcg/0.5mL dose or 50 mcg/0.25mL dose 1 completed Yane García null, [place] - [facility] 05/05/2023 14:39:14 Past Encounters Encounter ID Performer Location Encounter Start Date Encounter Closed Date Diagnosis/Indication Diagnosis SNOMED-CT Code Diagnosis ICD10 Code Diagnosis IMO Codes Diagnosis Note [id number] Kimi Puente [address] [address] 05/05/2023 14:25:33 05/05/2023 16:43:49 Anxiety 68966269 F41.9 [id number] Kimi Puente [address] [address] 10/26/2023 15:17:34 10/26/2023 16:15:11 Peripheral vascular disease 485587385 I73.9 labs,abiaf ter will refer to cardiology if needed Dependent edema 72493020 4 R60.0 [id number] Kimi Puente [address] [address] 10/27/2023 09:58:12 10/27/2023 10:02:50 Peripheral vascular disease 893097094 I73.9 labs,abiaf ter will refer to cardiology if needed Health Concerns Section Related Observation LastModified by Organization Detai ls LastModified Time None Recorded Concern Status LastModified by Organization Details LastModified Time None Recorded Advance Directives Directive N: Payers Insurance Date Sequence Insurance Name Policy Number Policy Miranda Covered Member ID Miranda Member ID Guarantor Name 12/22/2023 [place] [id number] Amee hO [id number] Amee Oh 12/22/2023 1 [place] [id number] Amee Oh [id number] Amee Oh Notes Date Note Type Note Provider Name and Address Organization Details Recorded Time 05/05/2023 text/html 47 yr old female presents to establish care and she wants to get put back on her wellbutrin. pt states she done well on med and wants to restart med Salclaudine Puente, BIOMEDICAL SPECIALIST [address], [place], [address], [place] - [facility] 05/05/2023 15:32:32 10/26/2023 text/html ROS as noted in the HPI 48 yr old female presents for a possible circulation problem. She states her bilateral feet get purple when in sitting position this has been going on for months. pt denies any pain or numbness. non smokerhx mother had stents placed in her 40's and two uncles had stents at a early age 50'spt states father and 2 siblings has had AAA Salclaudine gilberto, BIOMEDICAL SPECIALIST [address], [place], [address], [place] - [facility] 10/26/2023 16:01:06 10/27/2023 text/html 48 yr old female presents for lab work. Yane [place], [place] - [facility] 10/27/2023 10:06:35 OBGyn Episode No OBEpisode recorded.
--- OUTSIDE RECORDS SUMMARY | 2025-02-27 02:28 | XMS_ITS | Clinical Summary ---
Author Organization [facility] Address [address] [facility] [address] [place] [address] Phone Care Team Providers Care Medical Field Representative Name Role Phone Unavailable Primary Care Provider Unavailabl e Allergies Active Allergy Reactions Criticality Noted Date Comments Penicillin Hives 03/06/2023 Medications No known medications Social History Tobacco Use Types Packs/Day Years Used Date Smoking Tobacco: Never Assessed Comments No Sex and Gender Information Value Date Recorded Sex Assigned at Not on file Legal Sex Female 8:39 AM EDT Gender Identity Not on file Sexual Orientation Not on file Last Filed Vital Signs Vital Sign Reading Time Taken Comments Blood Pressure - - Pulse - - Temperature - - Respiratory Rate - - Oxygen Saturation - - Inhaled Oxygen Concentration - - Weight 59.6 kg (131 lb 6 oz) 03/06/2023 2:45 PM EST Height - - Body Mass Index - - Plan of Treatment Health Maintenance Due Date Last Done Comments Annual Wellness Exam 1976 DTaP/TDaP/Td (1 - Tdap) 1992 Hepatitis B Vaccine (1 of 3 - 19+ 3-dose series) 1992 Cervical Cancer Screening 1994 Pap Smear 1994 HPV/Pap Cotest 2003 Breast Cancer Screening 2013 Cologuard 2018 Colon Cancer Screening 2018 Colonoscopy 2018 FIT 2018 Sigmoidoscopy 2018 Virtual Colonography 2018 Pneumococcal Vaccine 50+ (1 of 1 - PCV) 2023 Zoster (1 of 2) 2023 COVID-19 Vaccine (3 - 2024-2 6 season) 2024 04/01/2021, 12/12/2020 Influenza Vaccine (#1) 2024 Meningococcal B Vaccine Aged Out No l onger eligible based on patient's age to complete this [place] [address]
--- OUTSIDE RECORDS SUMMARY | 2025-02-27 02:29 | XMS_ITS | Data Portability ---
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 Plan of Treatment Reminders Order Date Submit Date Provider Last Modified By Organization Details Last Modified Time Details Appointments None record ed. Lab None record ed. Referral None record ed. Procedures None record ed. Surgeries None record ed. Imaging XR, foot 023 06/19/19 [id number] [facility], [address] [place] [address] [place], [address], 12:33:06 Medication Orders None record ed. Patient TargetsNo targets recorded. Patient InstructionsNo instructions recorded. Reason for Referral None Reported. Results Created Date Observation Date Name Description Value Unit Range Abnormal Flag Note LastModifiedBy Organization Detail LastModifiedTime 06/19/19 XR, foot No observ ation record ed. [email or web address] [facility] [address] [place] [address] [place], [address], 06/19/2022 14:25:48 Result Notes None recorded. Problems Name Problem SNOMED Code Status Onset Date Resolution Date Notes Provider Name and Address Organization Details Recorded Time Sprain of left foot [id number] Active 2022 Joe Amos MD [address] [place] [address],[facility] [address], [place], [address] [facility] & [place] 12:33:45 Problem Notes None recorded. Procedures Surgical History Date Name Laterality Status Provider Name and Address Organization Details Recorded Time 10/25/2021 completed Shea VASQUEZ [facility] & [place] 06/19/2022 14:26:02 10/25/2021 Date of Last Pap Smear completed Shea VASQUEZ [facility] & [place] 06/19/2022 14:26:02 Imaging Results None recorded. Procedure Notes None recorded. Medical Equipment None Reported. Allergies Allergen ID Allergen Name Allergen Category Reaction Reaction Severity Criticality Documentation Date Start Date Code Code System Note Provider Name and Address Organization Details Recorded Time [address] penicilla mine medicatio n hives moderate Not available 06/19/2022 7975 RxNorm Shea ventura, [facility] & [place] 14:25:57 Medications Name Sig Start Date Stop Date Status Note LastModified by Organization Details LastModified Time ibuprofen 800 mg tablet TAKE 1 TABLET BY MOUTH EVERY 6 TO 8 HOURS 06/19 completed Not Available Not Available Not Available hydrocodone 5 mg-acetamin ophen 325 mg tablet TAKE 1 TABLET BY MOUTH EVERY 6 TO 8 HOURS NEEDED 06/19 completed Not Available Not Available Not Available clindamycin HCl 150 mg capsule TAKE 1 CAPSULE BY MOUTH THREE TIMES DAILY UNTIL GONE 06/19 completed Not Available Not Available Not Available methylpredn isolone 4 mg tablets in a dose pack FOLLOW PACKAGE DIRECTION S active Not Available Not Available No t Available cefdinir 300 mg capsule TAKE 1 CAPSULE BY MOUTH TWICE DAILY FOR 7 DAYS active Not Available Not Available No t Available bupropion HCl XL 150 mg 24 hr tablet, extended release TAKE 1 TABLET BY MOUTH EVERY DAY 06/19 completed Not Available Not Available Not Available GaviLyte-G 236 gram-22.74 gram-6.74 gram-5.86 gram oral solution Take as directed by Dr. Mcelroy's office. active Not Available Not Available No t Available Qsymia 3.75 mg-23 mg capsule, extended release TAKE 1 CAPSULE BY MOUTH DAILY FOR 14 DAYS. INCREASE TO 2 CAPSULES BY MOUTH DAILY 06/19 completed Not Available Not Available Not Available Vitals Date Recorded Body temperature Provider Name a nd Address Organization Details Last Updated DateTime 06/19/2022 98.2 [degF] Shea VASQUEZ - [facility] [place] 06/19/2022 14:25:53 Social History Question Answer Notes LastModified by Organizat ion Details LastModified Time Tobacco Smoking Status Never Smoker Shea ventura, [facility] - [facility] [place] 06/19/2022 14:26:09 Do You Have An Advance Directive? No [email or web address] Information not available 06/19/2022 Are You Blind Or Do You Have Difficulty Seeing? No [email or web address] Information not available 06/19/2022 What Was The Date Of Your Most Recent Tobacco Screening? 06/19/2022 [email or web address] Information not available 06/19/2022 Are You Passively Exposed To Smoke? No [email or web address] Information not available 06/19/2022 How Much Tobacco Do You Smoke? No [email or web address] Information not available 06/19/2022 How Many Years Have You Smoked Tobacco? 0 [email or web address] Information not available 06/19/2022 Sex: Female Functional Status Question Answer Note LastModified by Organizat ion Details LastModified Time Do you use any illicit or recreational drugs? No [email or web address] Information not available 06/19/2022 What is your level of alcohol consumption? Occasional [email or web address] Information not available 06/19/2022 Do you or have you ever used smokeless tobacco? 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 Occasional [email or web address] Information not available 06/19/2022 Mental Status Question Answer Note LastModified by Organization D etails LastModified Time Do you feel stressed (tense, restless, nervous, or anxious, or unable to sleep at night)? [id number] [email or web address] Information not available 06/19/2022 Family History Relationship Description Onset Age of this Age Resolved Age Notes LastModified by Organization Details LastModified Time Father No current problems or disability [email or web address] Not available 06/19 14:26:33 Mother No current problems or disability [email or web address] Not available 06/19 14:26:33 Medical History Condition Response None Y Gynecological History Statement/Question Response Menses Monthly N Abnormal Pap Y Date of Last Pap Smear 10/25/2021 10/25/2021 Date of LMP 10/25/2021 Sexually Active? Y Obstetrics History GPAL:G 0 P 0 0 0 0 Past Encounters Encounter ID Performer Location Encounter Start Date Encounter Closed Date Diagnosis/Indication Diagnosis SNOMED-CT Code Diagnosis ICD10 Code Diagnosis IMO Codes Diagnosis Note [id number] Joe Aoms MD [facility] [address] [place] [address] 06/19/2022 14:00:44 06/19/2022 14:30:56 Pain in left foot 3788201937 27334 M79.672 Sprain of left foot 1183 583496 4943555 S93.602A Health Concerns Section Related Observation LastModified by Organization Detai ls LastModified Time None Recorded Concern Status LastModified by Organization Details LastModified Time None Recorded Advance Directives Directive N: Payers Insurance Date Sequence Insurance Name Policy Number Policy Miranda Covered Member ID Miranda Member ID Guarantor Name 09/06/2022 1 [place] [id number] Amee Oh [id number] Amee Oh 08/31/2022 2 [place] [employer] [place] FFS/TRADITIO NAL Amee Oh [id number] Amee Oh Notes Date Note Type Note Provider Name and Address Organization Details Recorded Time 06/19/2022 text/html ROS as noted in the HPI This is a 46 year old female here today for left foot injury. States that 2 days ago she hit it at night on the bed. Is having pain at the top of the foot with burning pain E5 JS Joe Amos MD [address] [facility],[address], [place], [address], [facility] & [place] 06/20/2022 12:33:52 OBGyn Episode No OBEpisode recorded.
[2025-02-27] MEDS: ONDANSETRON 4MG/2ML VIAL 4 MG IV (02:47)
[2025-02-27] MEDS: KETOROLAC 15MG/ML VIAL 15 MG IV (02:47)
[2025-02-27] MEDS: MORPHINE 4MG/ML SYRINGE 4 MG IV (02:47)
[2025-02-27] MEDS: LACTATED RINGERS 1000ML 1,000 ML 999 ML IV (02:48)
[2025-02-27 02:51] LABS: Hematocrit 41.9 % (37.0-47.0); Hemoglobin 14.4 g/dL (12.2-16.2); Immature Granulocytes % 0.2 %; Mean Corpuscular HGB Conc 34.4 g/dL (31.8-35.4); Mean Corpuscular Hemoglobin 29.3 pg (27.0-31.2); Mean Corpuscular Volume 85.3 fl (81-99); Nucleated Red Blood Cells % 0 %; Platelet Count 225 K/mm3 (142-424); Red Blood Count 4.91 M/mm3 (4.20-5.40); Red Cell Distribution Width-SD 38.2 fL; White Blood Count 9.6 K/mm3 (4.8-10.8)
[2025-02-27 03:02] LABS: Albumin Level 4.9 g/dl (3.5-5.0); Chloride 102 mmol/L (98-107); HCG Qualitative, Serum Negative (Negative)
[2025-02-27 03:03] LABS: Potassium 3.1 mmoL/L (3.5-5.1); Sodium 140 mmol/L (136-145)
[2025-02-27 03:04] LABS: INR 0.95 (0.9-1.1); Prothrombin Time 10.6 seconds (10.1-12.5)
[2025-02-27 03:05] LABS: Alanine Aminotransferase 24 U/L (12-78); Anion Gap 11.1 mEq/L (5-15); Aspartate Amino Transferase 47 U/L (14-36); Blood Urea Nitrogen 9 mg/dl (7-17); Carbon Dioxide 30 mmol/L (22.0-30.0); Creatinine Clearance Estimated 67 mL/min (50-200); Creatinine,Serum 1.00 mg/dl (0.52-1.04); Estimated Glomerular Filt Rate 58 ml/min (>60); GFR (African American) 71 ML/MIN (>60)
[2025-02-27 03:06] LABS: Albumin/Globulin Ratio 2.2 (1.1-1.8); Alkaline Phosphatase 69 U/L (38-126); Bilirubin,Total 0.5 mg/dl (0.2-1.3); Calcium 8.9 mg/dl (8.4-10.2); Globulin 2.2 g/dL (1.3-3.2); Glucose 92 mg/dl (74-100); Lipase 65 U/L (23-300); Total Protein,Serum 7.1 g/dl (6.3-8.2)
--- NOTE | 2025-02-27 03:18 | ED_ITS ---
Discharge Plan Disposition Patient Disposition: Admitted Prescriptions Prescriptions: No Action Tubersol 5 tub. unit /0.1 mL solution 0.1 ml INTRADERMA ONCE Qty: 0.1 0RF bupropion HCl 150 mg tablet extended release 24 hr PO Referrals Follow up/Referrals: Kimi Puente APRN [Primary Care Provider, Medical] - See instructions Clinical Impressions Clinical Impression: Acute cholecystitis, Gallbladder hydrops Instructions Patient Instructions: DI for Acute Abdominal Pain Print Language Print Language: Jamaican Discharge ED Provider: Digna Lemon General Adult HPI General Chief complaint: Abdominal Pain Stated complaint: gall stone Time Seen by Provider: 02/27/25 02:25 Mode of Arrival: Ambulatory Source of Information: Patient Description of Symptoms (Recalled from ER Triage Doc. by RN): Pt presents to the ed for evaluation of upper left abd pain that began approx 2330 last night with pain increasing since. 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 Pt reports associated N/V, denies fevers at home. History of Present Illness HPI narrative: 49-year-old female who takes Wellbutrin daily but no other daily medications presents to the ER for complaints of upper abdominal pain. 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 She states she has had multiple flareups like this since her gallstone pancreatitis but typically she is able to get them resolved with just taking ibuprofen. She states her flareup tonight started around 1130 and she presents approximately 3-1/2 hours later with persistent pain not relieved by ibuprofen which typically solves this problem. She states her pain is 7 out of 10. She states it was in the epigastric area radiating to the right upper quadrant. She states this is identical to previous gallbladder attacks but is concerned that it probably needs to come out now that she is not able to get it to resolve and is worried that it is potentially affecting her pancreas again. She denies fevers or chills, no chest pain or difficulty breathing, no vomiting, diarrhea, constipation, dysuria, hematuria, or other associated symptoms. Denies any recent alcohol use. Related Data Home Medications ?Medication ?Instructions ?Recorded ?Confirmed bupropion HCl 150 mg 24 hr tablet, tab PO 03/07/2104/20 extended release Allergies Allergy/AdvReac Type Severity Reaction Status Date / Time Penicillins Allergy Verified 12/06/24 09:49 [facility] Disclaimer: The information contained in this section may have been updated after the patient was seen, as this information can be updated by other users. Surgical History (Updated 12/06/24 @ 09:49 by SOLMOON Theodore) History of Social History (Updated 12/06/24 @ 09:50 by SOLOMON Theodore) Smoking Status: Never smoker alcohol intake: current alcohol intake frequency: a few times a month current occupational status: employed Travel in the last 8 weeks?: Inside the [place] Have you lived/traveled outside US in past 30 days?: No Contact w/someone who lives/traveled outside US past 30 days?: No Exposure to someone with infectious disease in past 14 days?: No Do you have a fever (greater than 100.4 F or 38 C)?: No Have you tested positive for COVID-19?: No Exposed to someone with COVID-19 in past 14 days?: No Do you have a sore throat?: No Do you have a cough?: No Do you have any weakness?: No Do you have any diarrhea?: No Are you experiencing any unusual bleeding?: No Do you have any muscle aches/pain?: No Do you have any abdominal pain?: No Are you experiencing loss of taste or smell?: No Other Medical History Have you received the Pneumonia Vaccine: No ROS Obtained: Yes Systems reviewed as appropriate & no additional complaints except as documented Per HPI Physical Exam General General appearance: alert and in no apparent distress Head Head exam: atraumatic and normocephalic Eye Eye exam: Present PERRL and EOMI ENT ENT exam: Present mucous membranes moist Neck Neck exam: Present normal inspection and full ROM Chest Chest inspection: Present symmetric chest wall rise Respiratory Respiratory exam: Present normal lung sounds bilaterally; Absent respiratory distress, wheezes or stridor Cardiovascular Cardiovascular exam: Present regular rate and normal rhythm Abdominal Exam Abdominal exam: Present soft and tenderness; Absent distention, guarding, rebound or rigidity Abdominal tenderness: Present RUQ and moderate Extremities Exam Extremities exam: Present full ROM and normal capillary refill; Absent edema Back Exam Back exam: Absent CVA tenderness (R) or CVA tenderness (L) Neurological Exam Neurological exam: Present alert and oriented X3; Absent motor sensory deficit Psychiatric Psychiatric exam: Present normal affect and normal mood Skin Skin exam: Present warm and dry Medical Decision Making Medical Records Medical records reviewed: Yes I reviewed the patient's medical records. Screening: Per USPSTF and CDC recommendations, given the prevalence of disease in our region, it is our hospital?s policy to screen for HIV and viral Hepatitis for all patients aged 18 and over and those with ongoing risk factors. Kobe Inquiry Pt receiving controlled substance: No Vital Signs: 02/27/25 02:32 02/27/25 03:10 02/27/25 03:30 Temperature 97.8 F Temperature Source Oral Pulse Rate 65 74 Pulse Rate [Radial] 80 Respiratory Rate 16 Blood Pressure 120/68 130/70 Blood Pressure [Right Arm] 131/79 Blood Pressure Mean [Right Arm] 96 Blood Pressure Position [Right Arm] Sitting 02 Sat by Pulse Oximetry 97 99 96 Oxygen Delivery Method Room Air Lab Data Lab Results 02/27/25 02:27: Urine Color Yellow, Urine Appearance Clear, Urine pH 5.5, Ur Specific [place] >= 1.030, Urine Protein Negative, Urine Glucose (UA) Negative, Urine Ketones Negative, Urine Blood Trace-i, Urine Nitrate Negative, Urine Bilirubin Negative, Urine Urobilinogen 0.2, Ur Leukocyte Esterase 1+ A 02/27/25 02:31: WBC 9.6, RBC 4.91, Hgb 14.4, Hct 41.9, MCV 85.3, MCH 29.3, MCHC 34.4, RDW 12.4, Plt Count 225, MPV 10.2, Neut % (Auto) 76.0, Lymph % (Auto) 13.2, Dare % (Auto) 8.0, Eos % (Auto) 2.1, Baso % (Auto) 0.5, Neut # (Auto) 7.3, Lymph # (Auto) 1.3, Dare # (Auto) 0.8, Eos # (Auto) 0.2, Baso # (Auto) 0.1, PT 10.6, INR 0.95, Sodium 140, Potassium 3.1 L, Chloride 102, Carbon Dioxide 30, Anion Gap 11.1, BUN 9, Creatinine 1.00, Estimated Creat Clear 67, Estimated GFR 58 L, Est GFR ( Amer) 71, Glucose 92, Lactate 1.1, Calcium 8.9, Total Bilirubin 0.5, AST 47 H, ALT 24, Alkaline Phosphatase 69, Total Protein 7.1, Albumin 4.9, Globulin 2.2, Albumin/Globulin Ratio 2.2 H, Lipase 65, Serum HCG, Qual Negative 02/27/25 02:31 02/27/25 02:31 Orders (Tests/Meds): ED MEDICATIONS Generic Name Dose Route Start Last Admin Trade Name Obieq PRN Reason Stop Dose Admin Cefepime HCl 2 gm/ Sodium 100 mls @ 200 mls/hr 02/27/25 03:47 Chloride IV 02/27/25 04:16 ONCE ONE Metronidazole 500 mg in 100 mls @ 100 mls/hr 02/27/25 03:48 Flagyl 500mg/100ml Ivpb IV 02/27/25 04:47 ONCE ONE Sodium Chloride 10 ml 02/27/25 03:26 02/27/25 03:26 Sodium Chloride 0.9% 10ml Syr (Rad Only) IV 03/29/25 03:25 10 ml NEEDED PRN Administration Maintain IV Site Discontinued Medications Generic Name Dose Route Start Last Admin Trade Name Elian PRN Reason Stop Dose Admin Lactated Ringer's 1,000 mls @ 999 mls/hr 02/27/25 02:30 02/27/25 03:47 Lactated Ringer's 1000 Ml Bag IV 02/27/25 03:30 Infused .Q1H1M ONE Infusion Iopamidol 75 ml 02/27/25 03:26 02/27/25 03:26 Iopamidol-370 (76%);100ml Bottle IV 02/27/25 03:27 75 ml ONCE ONE Administration Ketorolac Tromethamine 15 mg 02/27/25 02:36 02/27/25 02:47 Ketorolac 15mg/Ml Vial IV 02/27/25 02:37 15 mg ONCE ONE Administration Morphine Sulfate 4 mg 02/27/25 02:36 02/27/25 02:47 Morphine 4mg/Ml Syringe IV 02/27/25 02:37 4 mg ONCE ONE Administration Ondansetron HCl 4 mg 02/27/25 02:30 02/27/25 02:47 Ondansetron 4mg/2ml Vial IV 02/27/25 02:31 4 mg ONCE ONE Administration ORDERS Category Date Time Status CT abdomen pelvis w con Stat Cat Scan 02/27/25 02:28 Completed POCUS Point of Care (ER Only) Stat Exams 02/27/25 02:30 Ordered CBC w/Auto Diff [Complete Blood Count Auto Diff] Stat Lab 02/27/25 02: Completed CMP [Comprehensive Metabolic Panel] Stat Lab 02/27/25 02: Completed HCG Qualitative, Serum Stat Lab 02/27/25 02: Completed HIV Combo Stat Lab 02/27/25 02: Received Hepatitis C Ab Qual. W/ RFX Stat Lab 02/27/25 02: Received Lactic Acid Stat Lab 02/27/25 02: Completed Lipase Stat Lab 02/27/25: Completed PT INR [Prothrombin Time INR] Stat Lab 02/27/25: Completed Urinalysis and Microscopic Stat Lab 02/27/25 02: Results Urine Culture Stat Micro 02/27/25 02: Received Medical Decision Narrative: In summary, this 49-year-old female presents to the emergency department today with epigastric right upper quadrant pain. On initial evaluation patient is hemodynamically stable, afebrile, tenderness to palpation of the right upper quadrant with no rebound or guarding, no peritonitic findings, remainder of exam benign. Differential diagnosis includes but is not limited to cholelithiasis, cholecystitis, pancreatitis, viral syndrome, transaminitis, choledocholithiasis, I considered cholangitis but patient does not have other associated symptoms that I would typically expect with this. I did also consider UTI, pyelonephritis, but have low suspicion for these without any urinary symptoms. Based on these concerns, I ordered hematologic and serum labs, CT, and I performed [id number] ultrasound at bedside which demonstrates findings concerning for cholecystitis. Patient received Toradol, morphine, Zofran, IV fluids initial for treatment. Labs personally reviewed demonstrate normal CBC, CMP with normal alkaline phosphatase, lipase normal, mild hypokalemia. UA negative for findings of infection, hCG negative. CT imaging personally interpreted demonstrate evidence concerning for cholecystitis, see radiology read for final interpretation which comments on hydropic gallbladder. ECG personally interpreted demonstrates sinus rhythm, rate 69, normal axis, normal ND and QTc, no STEMI. Troponin pending. On reassessment patient reports improvement of symptoms. I discussed evidence of cholecystitis with her and recommended admission for general surgery evaluation and likely cholecystectomy. She is agreeable to this. Though she does not have infectious symptoms at this time, our general surgeons typically prefer prophylactic antibiotics so cefepime and Flagyl are being administered prophylactically. I discussed this case with the hospitalist, Cecelia, who graciously accepted the patient for admission. She was admitted in stable condition. Procedures Miscellaneous Procedure Procedure Performed: Limited RUQ ultrasound Performed by: Digna Lemon MD Indication: Abdominal pain, nausea Identified structures: -Gallbladder -Gallbladder wall -Common bile duct -Liver Findings: Sonographic Carter sign: Present Gallstones: Absent Sludge: Present Pericholecystic fluid: Absent Maximal GB wall thickness (mm): [normal is </= 3mm] 4.1 mm, abnormal Common bile duct width (mm): [normal is </= 6mm] Not able to be measured Gallbladder width (cm): [normal is < 4cm] Normal Gallbladder length (cm): [normal is < 10cm] 9 cm, normal Impression: Sludge with thickened gallbladder wall but no Pericholecystic fluid, there is evidence of acute cholecystitis Images were saved to permanent archive The study was technically adequate CPT 66842-80 This study was performed by me, and I personally interpreted all images/videos. Based on my clinical judgement, these images were adequate and did not necessitate further imaging. Critical Care Critical Care Time Critical Care Time: No
--- NOTE | 2025-02-27 03:24 | PC.NURSE ---
lab contacted regarding delay in UA. Reports that they do have the urine and will receive it in.
[2025-02-27 03:26] LABS: Microscopic, Urine URINE MICROSCOPIC (MICROSCOPIC)
[2025-02-27] MEDS: SODIUM CHLORIDE 0.9% 10ML SYR (RAD ONLY) 10 ML IV (03:26)
[2025-02-27] MEDS: IOPAMIDOL-370 (76%);100ML BOTTLE 75 ML IV (03:26)
[2025-02-27 03:27] LABS: Bilirubin,Urine Negative (Negative); Color,Urine YELLOW (Yellow); Glucose,Urine (UA) Negative (Negative); Ketones,Urine Negative (Negative); Leukocyte Esterase,Urine 1+ (Negative); PH,Urine 5.5 (5.0-8.5); Protein,Urine Negative (Negative); Specific Gravity, Urine >= 1.030 (1.005-1.030); Urobilinogen,Urine 0.2 EU/dl (0.2)
[2025-02-27] MEDS: METRONIDAZ/SOD CHL 500 MG/100 ML PIGGYBACK 100 MG IV ×2 (03:52→16:45)
[2025-02-27 03:55] LABS: Hepatitis C Ab Qual. W/ RFX NEGATIVE (Negative)
--- NOTE | 2025-02-27 04:03 | ECG_ITS ---
APPROVED REPORT Exam: Resting ECG HR:69 bpm ECG Measurements Heart Rate 69 AXES ID 176 P 68 QRSd 97 QRS 98 QT 405 T 69 QTc 425 Conclusion SINUS RHYTHM INDETERMINATE AXIS LOW QRS VOLTAGE IN PRECORDIAL LEADS [QRS DEFLECTION < 1.0 mV IN CHEST LEADS] PATTERN CONSISTENT WITH PULMONARY DISEASE No STEMI Electronically signed by : TOMAS MONTANEZ, 02/28/2025 05:11:39
--- NOTE | 2025-02-27 04:07 | PC.NURSE ---
Report given to Vianney RN on the floor.
[2025-02-27 04:18] LABS: Bacteria,Urine 1+ /lpf
[2025-02-27 04:38] LABS: Troponin I < 0.01 ng/ml (0.00-0.034)
[2025-02-27] MEDS: 0.9 % SODIUM CHLORIDE 1000ML 1,000 ML 100 ML IV (05:11)
[2025-02-27] MEDS: CEFEPIME HCL 2 GM in 0.9 % SODIUM CHLORIDE 100 ML IV ×2 (05:21→17:45)
--- NOTE | 2025-02-27 05:32 | P.HP_ITS ---
<Statement entered by Regino Chappell MD - 02/27/25 17:13> Rounded on patient after nurse practitioner. Personally examined and interviewed patient. Agree with exam findings and care plan as documented. History of Present Illness *Admission Date: 02/27/25 *Reason for visit:: Abdominal pain *History of present illness: Patient is a 49-year-old female with past medical history significant for depression and biliary acute pancreatitis. Presents to [facility] due to right upper quadrant abdominal pain that began around 11 PM. Patient reports she was recently in [place] with similar symptoms and ultimately followed up to the hospital for evaluation and was found to have biliary pancreatitis. Patient returned home after treatment to follow-up with outpatient surgery. At the time of evaluation she states this was in September he was okay with proceeding with the surgery when patient was ready, but noted if she had any reoccurring pain that she would need to immediately follow-up to the ER for evaluation. Reports she was without any symptoms when she was evaluated in September. Doing well until a couple weeks ago she had a small episode of pain that lasted a few hours. Current episode began around 11 PM, consistent with prior symptoms of right upper quadrant pain and nausea. Reports taking ibuprofen which has helped with previous episodes, noted no relief. CT abdomen pelvis noted hydropic gallbladder with pericholecystic edema. Fsubd-ce-[id number] ultrasound obtained per ER provider who reported findings were concerning for cholecystitis. Denies fever, chills, urinary symptoms, chest pain, shortness of breath. Initial ED workup included laboratory studies and imaging. Laboratory findings included a potassium of 3.1, AST 47, UA with 1+ leukocyte esterase and 1+ bacteria. CT abdomen and pelvis, personally reviewed with evidence of hydropic gallbladder with pericholecystic edema, [id number] ultrasound per ED provider noted suggestive findings of cholecystitis. Received IV fluids, IV morphine prophylactic IV antibiotics with Flagyl and cefepime while in the emergency department. Patient currently is without acute distress, resting in bed comfortably, minimal pain, hemodynamically stable. [facility] Disclaimer: The information contained in this section may have been updated after the patient was seen, as this information can be updated by other users. Surgical History History of Social History (Reviewed 02/27/25 @ 05:54 by MANOLO Hess Smoking Status: Never smoker alcohol intake: never current occupational status: employed Travel in the last 8 weeks?: Inside the [place] Have you lived/traveled outside US in past 30 days?: No Contact w/someone who lives/traveled outside US past 30 days?: No Exposure to someone with infectious disease in past 14 days?: No Do you have a fever (greater than 100.4 F or 38 C)?: No Have you tested positive for COVID-19?: No Exposed to someone with COVID-19 in past 14 days?: No Do you have a sore throat?: No Do you have a cough?: No Do you have any weakness?: No Do you have any diarrhea?: No Are you experiencing any unusual bleeding?: No Do you have any muscle aches/pain?: No Do you have any abdominal pain?: No Are you experiencing loss of taste or smell?: No Other Medical History Have you received the Flu Vaccine for this season: No Have you received the Pneumonia Vaccine: No Review of Systems Review of Systems Review of systems:: pertinent systems reviewed and negative unless documented below Constitutional Constitutional: Reports as per HPI Eyes Eyes: Reports system reviewed and no additional complaints, except as documented and Reports as per HPI ENT Ears, Nose, Mouth, and Throat: Reports system reviewed and no additional complaints, except as documented and Reports as per HPI *Cardiovascular Cardiovascular: Reports system reviewed and no additional complaints, except as documented and Reports as per HPI *Respiratory Respiratory: Reports system reviewed and no additional complaints, except as documented and Reports as per HPI *Gastrointestinal Gastrointestinal: Reports as per HPI, Reports abdominal pain, Reports nausea and Reports vomiting Comments: Right upper quadrant abdominal pain *Genitourinary Genitourinary: Reports system reviewed and no additional complaints, except as documented and Reports as per HPI *Musculoskeletal Musculoskeletal: Reports system reviewed and no additional complaints, except as documented and Reports as per HPI Integumentary/Breasts Skin/Breast: Reports system reviewed and no additional complaints, except as documented and Reports as per HPI *Neurologic Neurologic: Reports system reviewed and no additional complaints, except as documented and Reports as per HPI Psychiatric Psychiatric: Reports system reviewed and no additional complaints, except as documented and Reports as per HPI Endocrine Endocrine: Reports system reviewed and no additional complaints, except as documented and Reports as per HPI Hematologic/Lymphatic Hematologic/Lymphatic: Reports system reviewed and no additional complaints, except as documented and Reports as per HPI Allergic/Immunologic Allergic/Immunologic: Reports system reviewed and no additional complaints, except as documented and Reports as per HPI Meds Home Medications and Allergies Home Medications ?Medication ?Instructions ?Recorded ?Confirmed ?Type bupropion HCl 150 mg 24 hr tablet, 150 tab PO BID 02/2502/27/25 History extended release New Prescriptions to Start Prescriptions: Allergies Allergy/AdvReac Type Severity Reaction Status Date / Time Penicillins Allergy Verified 12/06/24 09:49 Exam Data for Last 24 hours Vital signs and Labs for Last 24 Hours: Temp Pulse Resp BP Pulse Ox O2 Del Method O2 Flow Rate 97.9 F 67 14 111/63 98 Nasal Cannula 2 02/27/25 05:00 02/27/25 05:00 02/27/25 05:00 02/27/25 05:00 02/27/25 05:00 02/27/25 05:00 02/27/25 05:00 Laboratory Results - last 24 hr 02/27/25 02:27: Urine Color Yellow, Urine Appearance Clear, Urine pH 5.5, Ur Specific [place] >= 1.030, Urine Protein Negative, Urine Glucose (UA) Negative, Urine Ketones Negative, Urine Blood Trace-i, Urine Nitrate Negative, Urine Bilirubin Negative, Urine Urobilinogen 0.2, Ur Leukocyte Esterase 1+ A, Urine RBC None, Urine WBC 5-10, Ur Squamous Epith Cells 3-5, Urine Bacteria 1+ 02/27/25 02:31: WBC 9.6, RBC 4.91, Hgb 14.4, Hct 41.9, MCV 85.3, MCH 29.3, MCHC 34.4, RDW 12.4, Plt Count 225, MPV 10.2, Neut % (Auto) 76.0, Lymph % (Auto) 13.2, [place] % (Auto) 8.0, Eos % (Auto) 2.1, Baso % (Auto) 0.5, Neut # (Auto) 7.3, Lymph # (Auto) 1.3, [place] # (Auto) 0.8, Eos # (Auto) 0.2, Baso # (Auto) 0.1, PT 10.6, INR 0.95, Sodium 140, Potassium 3.1 L, Chloride 102, Carbon Dioxide 30, Anion Gap 11.1, BUN 9, Creatinine 1.00, Estimated Creat Clear 67, Estimated GFR 58 L, Est GFR ( Amer) 71, Glucose 92, Lactate 1.1, Calcium 8.9, Total Bilirubin 0.5, AST 47 H, ALT 24, Alkaline Phosphatase 69, Total Protein 7.1, Albumin 4.9, Globulin 2.2, Albumin/Globulin Ratio 2.2 H, Lipase 65, Serum HCG, Qual Negative, HCV Ab PHYLLIS w/Rflx PCR Qn Negative, HIV Ag/Ab Combo Qual Negative 02/27/25 04:01: Troponin I < 0.01 I & O for Last 24 hours: Intake & Output 02/24/25 02/25/25 02/26/25 02/27/25 23:59 23:59 22:59 23:59 Intake Total 1100 / 1100 Balance 1100 / 1100 Weight 66.48 kg Constitutional Constitutional: no acute distress *Routine HEENT Exam Head: Present normocephalic and atraumatic Eye: Present EOMI, PERRL and normal accommodation ENT: Present mucous membranes moist *Routine Neck Exam Neck: Present supple and full ROM *Routine Respiratory Exam Respiratory: Present normal respiratory effort *Routine Cardiovascular Exam Cardiovascular: Present RRR, Normal S1 and Normal S2 *Routine Abdominal Exam Abdominal: Present soft, normoactive bowel sounds and tenderness (Right upper quadrant tenderness) *Routine Rectal Exam Rectal:: deferred *Routine Genitalia Exam Genitalia:: deferred *Routine Extremities Exam Extremities: Present full ROM, pulses intact and normal capillary refill Routine Back/Spine/Pelvis Exam Back/Spine: Present full ROM *Routine Skin Exam Skin: Present intact *Routine Neurological Exam Neurological: Present alert, oriented X3 and CN II-XII intact Routine Psychiatric Exam Psychiatric: Present normal affect and normal thought process Assessment and Plan *Assessment and plan (1) Acute cholecystitis: Status: Acute Category: Medical Code(s): K81.0 - Acute cholecystitis (2) Biliary acute pancreatitis: Status: Acute Category: Medical Code(s): K85.10 - Biliary acute pancreatitis without necrosis or infection (3) Gallbladder hydrops: Status: Acute Category: Medical Code(s): K82.1 - Hydrops of gallbladder (4) Hypokalemia: Status: Acute Category: Medical Code(s): E87.6 - Hypokalemia (5) Depression: Status: Acute Category: Medical Code(s): F32.A - Depression, unspecified Plan 1. Acute cholecystitis: Relatively recent diagnosis of biliary acute pancreatitis while she was in [place]. Follow-up appointment with surgery upon returning home, with suggested plan to move forward for surgery if pain persists or returns. Right upper quadrant abdominal pain returned, consistent with associated nausea and vomiting, Imaging as noted above, suggestive of cholecystitis. Prophylactic IV antibiotics initiated in the emergency department cefepime and Flagyl, IV morphine for pain, IV Zofran for nausea management, IV fluids. Keep n.p.o., Consult placed to surgery for evaluation. 2. Depression: Stable-without acute issue, resume home medication when appropriate. 3. Hypokalemia: Potassium 3.1 in the emergency department, replace per protocol. Magnesium level with morning labs. 4. DVT prophylaxis: SCD's Full code NPO I personally discussed the management of this patient with emergency department provider, plan to admit continue IV fluids for hydration, IV pain medication management with morphine, antiemetics, consult surgery team for further evaluation.
[2025-02-27] MEDS: POTASSIUM CHLORIDE 20MEQ TAB 40 MEQ PO ×3 (06:31→16:32)
[2025-02-27 06:43] LABS: Hematocrit 40.0 % (37.0-47.0); Hemoglobin 13.6 g/dL (12.2-16.2); Immature Granulocytes % 0.4 %; Mean Corpuscular HGB Conc 34.0 g/dL (31.8-35.4); Mean Corpuscular Hemoglobin 29.6 pg (27.0-31.2); Mean Corpuscular Volume 87.1 fl (81-99); Nucleated Red Blood Cells % 0 %; Platelet Count 190 K/mm3 (142-424); Red Blood Count 4.59 M/mm3 (4.20-5.40); Red Cell Distribution Width-SD 39.4 fL; White Blood Count 7.3 K/mm3 (4.8-10.8)
--- NOTE | 2025-02-27 06:55 | EXP.SURG.CON ---
History of Present Illness *Admission Date: 02/27/25 *Reason for visit:: Acute Cholecystitis *History of present illness: Patient is a 49-year-old female whom I had seen in the office couple months ago as a self-referral for history of biliary pancreatitis. She was in [facility] and had a gallbladder attack. She describes symptoms consistent with heartburn, vomiting. She ultimately presented to the emergency department. She underwent thorough workup and apparently had biliary pancreatitis. She had an ultrasound reportedly revealing gallstones. She was hospitalized for several days and had what sounds to be ultrasound, CT scan, and MRCP. She did not require ERCP although she states that discussion was being held regarding this. Consideration also was being held regarding cholecystectomy while in inpatient. Patient elected to be discharged and follow-up as an outpatient. She is a self-referral. Currently asymptomatic. She has concerns about her insurance. After she was seen in the office in November recommendations were for expeditious outpatient cholecystectomy due to her history of apparent biliary pancreatitis. Over the past couple weeks she had a small episode of pain which was self-limited. In the evening of 02/26/2025 she developed recurrent pain similar to previous symptoms located in the right upper quadrant with associated nausea. Due to the persistence she presented to the emergency department. She had a CT scan performed which revealed findings consistent with hydropic gallbladder with Roger cholecystic edema and fluid. She had normal white blood cell count. She has slightly elevated AST of 47. Lipase is normal. She was admitted for inpatient management and surgical consultation. [facility] Disclaimer: The information contained in this section may have been updated after the patient was seen, as this information can be updated by other users. Surgical History History of Social History Smoking Status: Never smoker alcohol intake: never current occupational status: employed Travel in the last 8 weeks?: Inside the [place] Have you lived/traveled outside US in past 30 days?: No Contact w/someone who lives/traveled outside US past 30 days?: No Exposure to someone with infectious disease in past 14 days?: No Do you have a fever (greater than 100.4 F or 38 C)?: No Have you tested positive for COVID-19?: No Exposed to someone with COVID-19 in past 14 days?: No Do you have a sore throat?: No Do you have a cough?: No Do you have any weakness?: No Do you have any diarrhea?: No Are you experiencing any unusual bleeding?: No Do you have any muscle aches/pain?: No Do you have any abdominal pain?: No Are you experiencing loss of taste or smell?: No Review of Systems *Neurologic Neurologic: Reports system reviewed and no additional complaints, except as documented and Reports as per [facility] Meds Home Medications and Allergies Home Medications ?Medication ?Instructions ?Recorded ?Confirmed ?Type bupropion HCl 150 mg 24 hr tablet, 150 tab PO BID 03/07/21 02/27/25 History extended release New Prescriptions to Start Prescriptions: Allergies Allergy/AdvReac Type Severity Reaction Status Date / Time Penicillins Allergy Verified 12/06/24 09:49 Exam (Inpt) Vital signs and Labs for Last 24 Hours: Temp Pulse Resp BP Pulse Ox O2 Del Method O2 Flow Rate 97.9 F 67 14 111/63 98 Room Air 2 02/27/25 05:00 02/27/25 05:00 02/27/25 05:00 02/27/25 05:00 02/27/25 05:00 02/27/25 06:42 02/27/25 05:00 Laboratory Results - last 24 hr 02/27/25 02:27: Urine Color Yellow, Urine Appearance Clear, Urine pH 5.5, Ur Specific [place] >= 1.030, Urine Protein Negative, Urine Glucose (UA) Negative, Urine Ketones Negative, Urine Blood Trace-i, Urine Nitrate Negative, Urine Bilirubin Negative, Urine Urobilinogen 0.2, Ur Leukocyte Esterase 1+ A, Urine RBC None, Urine WBC 5-10, Ur Squamous Epith Cells 3-5, Urine Bacteria 1+ 02/27/25 02:31: WBC 9.6, RBC 4.91, Hgb 14.4, Hct 41.9, MCV 85.3, MCH 29.3, MCHC 34.4, RDW 12.4, Plt Count 225, MPV 10.2, Neut % (Auto) 76.0, Lymph % (Auto) 13.2, [place] % (Auto) 8.0, Eos % (Auto) 2.1, Baso % (Auto) 0.5, Neut # (Auto) 7.3, Lymph # (Auto) 1.3, [place] # (Auto) 0.8, Eos # (Auto) 0.2, Baso # (Auto) 0.1, PT 10.6, INR 0.95, Sodium 140, Potassium 3.1 L, Chloride 102, Carbon Dioxide 30, Anion Gap 11.1, BUN 9, Creatinine 1.00, Estimated Creat Clear 67, Estimated GFR 58 L, Est GFR ( Amer) 71, Glucose 92, Lactate 1.1, Calcium 8.9, Total Bilirubin 0.5, AST 47 H, ALT 24, Alkaline Phosphatase 69, Total Protein 7.1, Albumin 4.9, Globulin 2.2, Albumin/Globulin Ratio 2.2 H, Lipase 65, Serum HCG, Qual Negative, HCV Ab PHYLLIS w/Rflx PCR Qn Negative, HIV Ag/Ab Combo Qual Negative 02/27/25 04:01: Troponin I < 0.01 02/27/25 06:23: WBC 7.3, RBC 4.59, Hgb 13.6, Hct 40.0, MCV 87.1, MCH 29.6, MCHC 34.0, RDW 12.3, Plt Count 190, MPV 10.3, Neut % (Auto) 78.0, Lymph % (Auto) 11.7, [place] % (Auto) 8.8, Eos % (Auto) 0.8, Baso % (Auto) 0.3, Neut # (Auto) 5.7, Lymph # (Auto) 0.9, [place] # (Auto) 0.6, Eos # (Auto) 0.1, Baso # (Auto) 0.0 I & O for Labs for Last 24 Hours: Intake & Output 02/24/25 02/25/25 02/26/25 02/27/25 11:59 11:59 10:59 11:59 Intake Total 1100 / 1100 Balance 1100 / 1100 Weight 146 lb 9 oz Constitutional: no acute distress Respiratory: Present CTA bilaterally Cardiac: Present Reg Rate and Rhythm GI: Present soft; Absent tenderness Results Labs 02/27/25 06:23 02/27/25 02:31 Labs: Laboratory Results - last 24 hr 02/27/25 02:27: Urine Color Yellow, Urine Appearance Clear, Urine pH 5.5, Ur Specific [place] >= 1.030, Urine Protein Negative, Urine Glucose (UA) Negative, Urine Ketones Negative, Urine Blood Trace-i, Urine Nitrate Negative, Urine Bilirubin Negative, Urine Urobilinogen 0.2, Ur Leukocyte Esterase 1+ A, Urine RBC None, Urine WBC 5-10, Ur Squamous Epith Cells 3-5, Urine Bacteria 1+ 02/27/25 02:31: WBC 9.6, RBC 4.91, Hgb 14.4, Hct 41.9, MCV 85.3, MCH 29.3, MCHC 34.4, RDW 12.4, Plt Count 225, MPV 10.2, Neut % (Auto) 76.0, Lymph % (Auto) 13.2, [place] % (Auto) 8.0, Eos % (Auto) 2.1, Baso % (Auto) 0.5, Neut # (Auto) 7.3, Lymph # (Auto) 1.3, [place] # (Auto) 0.8, Eos # (Auto) 0.2, Baso # (Auto) 0.1, PT 10.6, INR 0.95, Sodium 140, Potassium 3.1 L, Chloride 102, Carbon Dioxide 30, Anion Gap 11.1, BUN 9, Creatinine 1.00, Estimated Creat Clear 67, Estimated GFR 58 L, Est GFR ( Amer) 71, Glucose 92, Lactate 1.1, Calcium 8.9, Total Bilirubin 0.5, AST 47 H, ALT 24, Alkaline Phosphatase 69, Total Protein 7.1, Albumin 4.9, Globulin 2.2, Albumin/Globulin Ratio 2.2 H, Lipase 65, Serum HCG, Qual Negative, HCV Ab PHYLLIS w/Rflx PCR Qn Negative, HIV Ag/Ab Combo Qual Negative 02/27/25 04:01: Troponin I < 0.01 02/27/25 06:23: WBC 7.3, RBC 4.59, Hgb 13.6, Hct 40.0, MCV 87.1, MCH 29.6, MCHC 34.0, RDW 12.3, Plt Count 190, MPV 10.3, Neut % (Auto) 78.0, Lymph % (Auto) 11.7, [place] % (Auto) 8.8, Eos % (Auto) 0.8, Baso % (Auto) 0.3, Neut # (Auto) 5.7, Lymph # (Auto) 0.9, [place] # (Auto) 0.6, Eos # (Auto) 0.1, Baso # (Auto) 0.0 Assessment and Plan *Assessment and plan (1) Acute cholecystitis: Status: Acute Category: Medical Code(s): K81.0 - Acute cholecystitis Plan Patient has findings consistent with clinical acute calculous cholecystitis. No evidence of choledocholithiasis or biliary pancreatitis at this time. Plan will be to proceed with laparoscopic possibly open cholecystectomy today. Likely forego intraoperative cholangiogram given normal liver function test, lack of biliary pancreatitis, lack of biliary ductal dilatation at this time given the acute gallbladder and increased risk of complications if cholangiogram is undertaken. I explained to her the nature and details of the proposed procedure along with the associated risks and expected outcome. She understands and agrees to proceed.
[2025-02-27 06:56] LABS: Anion Gap 11.4 mEq/L (5-15); Blood Urea Nitrogen 10 mg/dl (7-17); Calcium 8.2 mg/dl (8.4-10.2); Carbon Dioxide 21 mmol/L (22.0-30.0); Chloride 106 mmol/L (98-107); Creatinine Clearance Estimated 87 mL/min (50-200); Creatinine,Serum 0.80 mg/dl (0.52-1.04); Estimated Glomerular Filt Rate 76 ml/min (>60); GFR (African American) 92 ML/MIN (>60); Glucose 118 mg/dl (74-100); Potassium 3.4 mmoL/L (3.5-5.1); Sodium 135 mmol/L (136-145)
--- NOTE | 2025-02-27 07:14 | US_ITS ---
FINAL REPORT TECHNIQUE: Sonographic images of the right upper quadrant were obtained. CLINICAL HISTORY: RUQ PAIN FINDINGS: PANCREAS: Unremarkable. LIVER: Homogeneous. No focal hepatic lesion. No intrahepatic biliary ductal dilatation. GALLBLADDER: There are gallstones with gallbladder wall thickening and Roger cholecystic fluid concerning for acute cholecystitis. COMMON DUCT: 4 mm. Normal for age. RIGHT KIDNEY: The right kidney measures 10.1 cm. There is no hydronephrosis, mass, or stone. FREE FLUID: None. IMPRESSION: Gallstones with gallbladder wall thickening and Roger cholecystic fluid concerning for acute cholecystitis. Reviewed, Interpreted and Dictated by Jelena Cano MD Transcribed by Sobia Cesar Authenticated and [facility]
[2025-02-27 07:35] LABS: Alanine Aminotransferase 52 U/L (12-78); Albumin Level 3.7 g/dl (3.5-5.0); Alkaline Phosphatase 57 U/L (38-126); Aspartate Amino Transferase 101 U/L (14-36); Bilirubin,Direct 0.6 mg/dl (0.0-0.4); Bilirubin,Indirect 0.7 mg/dL (0.0-0.9); Bilirubin,Total 1.3 mg/dl (0.2-1.3); Bilirubin,Unconjugated 0.7 mg/dL (0.0-1.1); Total Protein,Serum 6.5 g/dl (6.3-8.2)
[2025-02-27 08:31] LABS: Troponin I < 0.01 ng/ml (0.00-0.034)
--- NOTE | 2025-02-27 13:20 | EXP.ANES.CKL ---
[facility] Disclaimer: The information contained in this section may have been updated after the patient was seen, as this information can be updated by other users. Surgical History History of Social History Smoking Status: Never smoker alcohol intake: never substance use type: denies use current occupational status: employed Travel in the last 8 weeks?: Inside the [place] [facility] Anesthesia Checklist Patient Identification Patient Identification: Arm Band and Verbal (Name & ) Structural Data Admitted From: Home Planned Operative Procedure/s: Laparoscopic Cholecystectomy Consent for Planned Operative Procedure(s) Verified: Yes Verified Documents: Surgical Consent NPO Status Verified Time NPO: 00:00 Chart Verification Results Verified: CBC and BMP Additional verifications Anesthesia Reactions: No Airway Assessment Mallampati Score:: Class II C-Spine Mobility Assessed: Yes TMJ Mobility Assessed: Yes Dentition: Good Dentition Neurological Assessment Level of Consciousness: Awake, Alert and Appropriate Hx Seizures: No Numbness or tingling in extremities: No Anesthesia Plan Anesthesia Risk discussed: Yes Anesthesia Plan: Verified ASA Class: I Anesthesia Type: General
[2025-02-27] MEDS: LIDOCAINE 1% 20ML MDV 20 ML (13:50)
[2025-02-27] MEDS: CLINDAMYCIN PHOSPHATE/D5W 900 MG/50 ML PIGGYBACK 200 MG (13:51)
--- NOTE | 2025-02-27 15:32 | P.OP_ITS ---
Date of procedure: 02/27/25 Pre-op Diagnosis:: Acute calculous cholecystitis Post-op Diagnosis:: Same Procedure performed:: Laparoscopic cholecystectomy Surgeon:: Ishan Yuen MD Anesthesia: NIA Estimated blood loss (mL): 40 Operative findings:: She had an acute edematous distended gallbladder with Pericholecystic edema and fluid. There were multiple stones. Operative note:: Consent was obtained and patient was taken to the operating room. She was given preoperative intravenous antibiotics. In the operating room she was placed in a supine position. General anesthesia was induced via endotracheal tube. Abdomen was prepped and draped in the standard surgical fashion. Infraumbilical skin incision was made while performing abdominal wall lift. Veress needle was inserted and CO2 pneumoperitoneum was achieved to 15 mmHg. 5 mm optical trocar was inserted at the umbilicus. She was positioned in reverse Trendelenburg left side down. A couple 5 mm trocars were inserted in the right upper abdomen. 11 mm trocar was inserted in the epigastrium. There were acute inflammatory adhesions to the gallbladder. These were taken down using blunt dissection with some use of ultrasonic harmonic tali. Gallbladder was retracted anteriorly over the dome of the liver. Remainder of inflammatory adhesions were taken down. There was some appreciable edema around the gallbladder. Traction was placed on the infundibulum of the gallbladder retracting it anterior laterally. Prolonged careful dissection was carried out the neck of the gallbladder. There was some unavoidable spillage of bile from the Cordova's pouch of the gall bladder due to its friability and a couple of Endoloops were used to close the rent. The cystic artery was identified adjacent to the cystic duct adenoma somewhat overlying it. It was isolated. It was divided with ultrasonic harmonic tlai after it was coagulated to allow for dissection of the cystic duct. There was some appreciable inflammatory response around the cystic duct and alejandro hepatis. Surgicel was placed intermittently for temporary hemostasis due to oozing from the inflammation. Ultimately cystic duct was identified and isolated. There were multiple small stones within the proximal cystic duct at the neck of the gallbladder. These were milked back into the gallbladder body. Cystic duct was isolated, multiply clipped, and sharply divided. The gallbladder was then dissected free from the liver in a retrograde fashion using ultrasonic harmonic tali. Gallbladder was placed within an Endo Catch retrieval device and removed from the peritoneal cavity via the epigastric trocar site which required some minor extension of the fascia and skin for delivery. Gallbladder fossa was inspected for hemostasis. Some use of laparoscopic electrocautery was used on the liver at the insertion site of falciform ligament where there is some minor oozing due to traction of the liver. There was good hemostasis. Fascia at the epigastric site was closed with a couple of 0 Vicryl sutures using the Javier-Manuel laparoscopic fascial closure device. Trocars were then removed the CO2 pneumoperitoneum was evacuated. Local anesthetic was infiltrated. Skin incision was closed with 4-0 Monocryl in a subcuticular fashion. Steri-Strips and dressings were applied. Condition: stable Disposition: PACU Complications:: None immediately apparent
--- NOTE | 2025-02-27 15:41 | EXP.ANES.I ---
[facility] Anesthesia Record Part I Anesthesia Record I Intake, IV Amount: 1,000 Hydration: Adequate Estimated blood loss (mL): 10 Urine output (mL): 0 Blood Pressure: 141/97 SaO2: 98 Pulse Rate: 18 Airway Patency: Patent Respiratory Rate: 18 Temperature: 98.6 F Patient is:: Awake and Stable Stable to PACU at:: 15:45
--- NOTE | 2025-02-27 16:23 | P.PN_ITS ---
<Statement entered by Regino Chappell MD - 02/27/25 17:13> Rounded on patient after nurse practitioner. Personally examined and interviewed patient. Agree with exam findings and care plan as documented. Subjective *Date: 02/27/25 *Time: 16:23 Interval history: Patient is doing well, status post laparoscopic cholecystectomy. Will monitor overnight. Cefepime and Flagyl for broad-spectrum prophylactic coverage. Will advance diet as tolerated. Anticipate discharge home in the morning. Medical Exam Vital signs and Labs for Last 24 Hours: Vital Signs Temp Pulse Pulse Resp BP BP Pulse Ox 02/27/25 16:05 97.5 F L 62 20 132/76 99 02/27/25 15:55 62 18 131/76 97 02/27/25 15:45 65 18 147/93 H 99 02/27/25 15:41 98.6 F 18 L 18 141/97 H 02/27/25 15:35 97.5 F L 66 20 146/95 H 98 02/27/25 10:56 02/27/25 08:00 02/27/25 07:56 02/27/25 07:35 97.6 F 64 16 112/62 98 02/27/25 06:42 02/27/25 05:00 02/27/25 05:00 97.9 F 67 14 111/63 98 02/27/25 04:17 97.8 F 74 16 130/70 02/27/25 04:08 14 98 02/27/25 03:30 74 130/70 96 02/27/25 03:10 65 120/68 99 02/27/25 02:32 97.8 F 80 16 131/79 97 O2 Del Method O2 Flow Rate 02/27/25 16:05 Room Air 02/27/25 15:55 Room Air 02/27/25 15:45 Room Air 02/27/25 15:41 02/27/25 15:35 Room Air 02/27/25 10:56 Room Air 02/27/25 08:00 Room Air 02/27/25 07:56 Room Air 02/27/25 07:35 Room Air 02/27/25 06:42 Room Air 02/27/25 05:00 Room Air 02/27/25 05:00 Nasal Cannula 2 02/27/25 04:17 Room Air 02/27/25 04:08 Room Air 02/27/25 03:30 02/27/25 03:10 02/27/25 02:32 Room Air Intake and Output 02/27/25 02/27/25 02/27/25 07:59 15:59 23:59 Intake Total 1200 / 2200 1000 / 2200 Output Total 0 / 0 Balance 1200 / 2200 1000 / 2200 Intake: Intake, Total IV Amount 1200 / 2200 1000 / 2200 Cefepime HCl 2 gm In 0.9 % 100 / 100 Sodium Chloride 100 ml @ 200 mls/hr IV ONCE ONE Rx#:[id number] Lactated Ringers 1000ML 1,000 1000 / 1000 ml @ 999 mls/hr IV .Q1H1M ONE Rx#:[id number] Metronidaz/Sod Chl 500 mg In 100 / 100 100 ml @ 100 mls/hr IV ONCE ONE Rx#:[id number] Output: Output, Urine Amount 0 / 0 Other: Number of Voids 0 Weight 66.48 kg Patient Weight 02/27/25 23:59 Weight 66.48 kg Laboratory Results - last 24 hr 02/27/25 02:27: Urine Color Yellow, Urine Appearance Clear, Urine pH 5.5, Ur Specific [place] >= 1.030, Urine Protein Negative, Urine Glucose (UA) Negative, Urine Ketones Negative, Urine Blood Trace-i, Urine Nitrate Negative, Urine Bilirubin Negative, Urine Urobilinogen 0.2, Ur Leukocyte Esterase 1+ A, Urine RBC None, Urine WBC 5-10, Ur Squamous Epith Cells 3-5, Urine Bacteria 1+ 02/27/25 02:31: WBC 9.6, RBC 4.91, Hgb 14.4, Hct 41.9, MCV 85.3, MCH 29.3, MCHC 34.4, RDW 12.4, Plt Count 225, MPV 10.2, Neut % (Auto) 76.0, Lymph % (Auto) 13.2, [place] % (Auto) 8.0, Eos % (Auto) 2.1, Baso % (Auto) 0.5, Neut # (Auto) 7.3, Lymph # (Auto) 1.3, [place] # (Auto) 0.8, Eos # (Auto) 0.2, Baso # (Auto) 0.1, PT 10.6, INR 0.95, Sodium 140, Potassium 3.1 L, Chloride 102, Carbon Dioxide 30, Anion Gap 11.1, BUN 9, Creatinine 1.00, Estimated Creat Clear 67, Estimated GFR 58 L, Est GFR ( Amer) 71, Glucose 92, Lactate 1.1, Calcium 8.9, Total Bilirubin 0.5, AST 47 H, ALT 24, Alkaline Phosphatase 69, Total Protein 7.1, Albumin 4.9, Globulin 2.2, Albumin/Globulin Ratio 2.2 H, Lipase 65, Serum HCG, Qual Negative, HCV Ab PHYLLIS w/Rflx PCR Qn Negative, HIV Ag/Ab Combo Qual Negative 02/27/25 04:01: Troponin I < 0.01 02/27/25 06:23: WBC 7.3, RBC 4.59, Hgb 13.6, Hct 40.0, MCV 87.1, MCH 29.6, MCHC 34.0, RDW 12.3, Plt Count 190, MPV 10.3, Neut % (Auto) 78.0, Lymph % (Auto) 11.7, [place] % (Auto) 8.8, Eos % (Auto) 0.8, Baso % (Auto) 0.3, Neut # (Auto) 5.7, Lymph # (Auto) 0.9, [place] # (Auto) 0.6, Eos # (Auto) 0.1, Baso # (Auto) 0.0, Sodium 135 L, Potassium 3.4 L, Chloride 106, Carbon Dioxide 21 L, Anion Gap 11.4, BUN 10, Creatinine 0.80, Estimated Creat Clear 87, Estimated GFR 76, Est GFR ( Amer) 92 D, Glucose 118 H D, Calcium 8.2 L, Total Bilirubin 1.3, Direct Bilirubin 0.6 H, Conjugated Bilirubin 0.0, Indirect Bilirubin 0.7, Unconjugated Bilirubin 0.7, AST 101 H D, ALT 52 D, Alkaline Phosphatase 57, Troponin I < 0.01, Total Protein 6.5, Albumin 3.7 D I & O for Labs for Last 24 Hours: Intake & Output 02/24/25 02/25/25 02/26/25 02/27/25 23:59 23:59 22:59 23:59 Intake Total 2200 / 2200 Output Total 0 / 0 Balance 2200 / 2200 Weight 66.48 kg Constitutional: Present no acute distress, average body habitus and cooperative Head: Present atraumatic Eyes: Present as per HPI ENT: Present normal exam Neck: Present normal inspection Respiratory: Present CTA bilaterally, normal respiratory effort and able to speak in complete sentences; Absent wheezes or crackles Cardiac: Present Reg Rate and Rhythm and No Murmur GI: Present soft, tenderness (Nonfocal), hypoactive bowel sounds and incision; Absent distention Comments:: Laparoscopic surgical sites, CDI Rectal (female): Present deferred (female): Present deferred Extremities: Present normal inspection and full ROM; Absent tenderness Skin: Present intact and dry; Absent rash Neuro: Present alert, awake and oriented x 3 Assessment and Plan *Assessment and plan (1) Status post laparoscopic cholecystectomy: Status: Acute Category: Surgical Code(s): Z90.49 - Acquired absence of other specified parts of digestive tract (2) Acute cholecystitis: Status: Acute Category: Medical Code(s): K81.0 - Acute cholecystitis (3) Depression: Status: Acute Category: Medical Code(s): F32.A - Depression, unspecified (4) Hypokalemia: Status: Acute Category: Medical Code(s): E87.6 - Hypokalemia Plan Ms. Oh is a 49-year-old female who presented to the emergency department last night with complaints of upper abdominal pain. She has a history of gallstone pancreatitis and was planning to have her gallbladder out in April due to insurance reasons. She complained of pain rating it a 7/10. CT abdomen/pelvis showed acute cholecystitis, right upper quadrant sound confirmed. General surgery was consulted and plans for patient to have laparoscopic cholecystectomy today were made. Hospital medicine was consulted for admission and agreed to admit the patient. Patient will be monitored overnight, anticipate discharge home tomorrow. Plan of care as follows: #Acute cholecystitis #S/p laparoscopic cholecystectomy ? Patient doing well postprocedure. Laparoscopic cholecystectomy completed without issues, gallbladder was noted to be inflamed. Patient will be kept overnight for monitoring. Cefepime and Flagyl prophylactically started. No leukocytosis, no anemia. Patient remains hemodynamically stable post procedure. ?Morphine, [place] ordered for postoperative pain. Zofran ordered for postoperative nausea. Diet advanced to full liquid for dinner. ?CBC, CMP, magnesium ordered for the a.m. #Depression: Continue Wellbutrin 150 mg twice daily. #Hypokalemia: Patient potassium 3.1 this morning, replace per protocol. Repeat potassium 3.4. Continuing to monitor. VTE?SCDs Full code Full liquid diet Ambulate as tolerated
[2025-02-27] MEDS: HYDROCODONE/APAP 5/325 MG TABLET 1 TAB PO (16:33)
[2025-02-27] MEDS: MORPHINE 2MG/ML SYRINGE 2 MG IV (17:42)
--- NOTE | 2025-02-27 19:42 | PC.NURSE ---
PT IS RESTING IN BED. ALERT AND ORIENTED X4. TOLERATING FULL LIQUIDS. MEDICATED PER MAR FOR DISCOMFORT. DRESSINGS TO ABDOMEN C/D/I. LUNG SOUNDS CLEAR. AMBULATES TO THE BATHROOM. WILL CONTINUE TO MONITOR.
[2025-02-28] VITALS: BP 110/66; PULSE 76; RESP 14; TEMP 36.7; O2SAT 97
[2025-02-28] MEDS: METRONIDAZ/SOD CHL 500 MG/100 ML PIGGYBACK 100 MG IV ×2 (00:06→08:36)
--- NOTE | 2025-02-28 03:43 | PC.NURSE ---
Pt is A&OX4 and has tolerated room air. She has denied any abdominal pain or nausea. Dressings over lap sites have remained c/d/i. She has ambulated independent. Family member has remained at bedside. No complaints at this time, call light within reach.
[2025-02-28 04:00] VITALS: BP 117/75; PULSE 65; RESP 16; TEMP 36.7; O2SAT 92; BMI 27.5
[2025-02-28] MEDS: CEFEPIME HCL 2 GM in 0.9 % SODIUM CHLORIDE 100 ML IV (05:53)
[2025-02-28 06:32] LABS: Chloride 108 mmol/L (98-107)
[2025-02-28 06:33] LABS: Albumin Level 4.1 g/dl (3.5-5.0); Hematocrit 36.8 % (37.0-47.0); Hemoglobin 12.7 g/dL (12.2-16.2); Immature Granulocytes % 0.2 %; Mean Corpuscular HGB Conc 34.5 g/dL (31.8-35.4); Mean Corpuscular Hemoglobin 29.4 pg (27.0-31.2); Mean Corpuscular Volume 85.2 fl (81-99); Nucleated Red Blood Cells % 0 %; Platelet Count 205 K/mm3 (142-424); Potassium 4.0 mmoL/L (3.5-5.1); Red Blood Count 4.32 M/mm3 (4.20-5.40); Red Cell Distribution Width-SD 37.7 fL; Sodium 139 mmol/L (136-145); White Blood Count 8.5 K/mm3 (4.8-10.8)
[2025-02-28 06:36] LABS: Alanine Aminotransferase 103 U/L (12-78); Albumin/Globulin Ratio 2.1 (1.1-1.8); Alkaline Phosphatase 61 U/L (38-126); Anion Gap 11.0 mEq/L (5-15); Aspartate Amino Transferase 71 U/L (14-36); Bilirubin,Total 0.7 mg/dl (0.2-1.3); Blood Urea Nitrogen 5 mg/dl (7-17); Calcium 8.2 mg/dl (8.4-10.2); Carbon Dioxide 24 mmol/L (22.0-30.0); Creatinine Clearance Estimated 102 mL/min (50-200); Creatinine,Serum 0.70 mg/dl (0.52-1.04); Estimated Glomerular Filt Rate 88 ml/min (>60); GFR (African American) 107 ML/MIN (>60); Globulin 2.0 g/dL (1.3-3.2); Glucose 114 mg/dl (74-100); Magnesium 1.8 mg/dl (1.6-2.3); Total Protein,Serum 6.1 g/dl (6.3-8.2)
[2025-02-28 08:00] VITALS: BP 114/69; PULSE 73; RESP 16; TEMP 36.6; O2SAT 96
--- NOTE | 2025-02-28 08:24 | P.DS_ITS ---
<Statement entered by Robb Marion MD - 03/04/25 14:19> Agree with the plan of care as outlined by the TIRE RECAPPER. General Admission date:: 02/27/25 Discharge date: 02/28/25 HPI HPI HPI: Patient is a 49-year-old female whom I had seen in the office couple months ago as a self-referral for history of biliary pancreatitis. She was in [facility] and had a gallbladder attack. She describes symptoms consistent with heartburn, vomiting. She ultimately presented to the emergency department. She underwent thorough workup and apparently had biliary pancreatitis. She had an ultrasound reportedly revealing gallstones. She was hospitalized for several days and had what sounds to be ultrasound, CT scan, and MRCP. She did not require ERCP although she states that discussion was being held regarding this. Consideration also was being held regarding cholecystectomy while in inpatient. Patient elected to be discharged and follow-up as an outpatient. She is a self- referral. Currently asymptomatic. She has concerns about her insurance. After she was seen in the office in November recommendations were for expeditious outpatient cholecystectomy due to her history of apparent biliary pancreatitis. Over the past couple weeks she had a small episode of pain which was self- limited. In the evening of 02/26/2025 she developed recurrent pain similar to previous symptoms located in the right upper quadrant with associated nausea. Due to the persistence she presented to the emergency department. She had a CT scan performed which revealed findings consistent with hydropic gallbladder with Roger cholecystic edema and fluid. She had normal white blood cell count. She has slightly elevated AST of 47. Lipase is normal. She was admitted for inpatient management and surgical consultation. Hospital Course Hospital Course Hospital Course: Ms. Oh is a 49-year-old female who presented to the emergency department with complaints of upper abdominal pain. She has a history of gallstone pancreatitis and was planning to have her gallbladder out in April due to insurance reasons. She complained of pain rating it a 7/10. CT abdomen/pelvis showed acute cholecystitis, right upper quadrant sound confirmed. General surgery was consulted and plans for patient to have laparoscopic cholecystectomy were made. Hospital medicine was consulted for admission and agreed to admit the patient. Surgery without complications, patient was monitored overnight. Patient is send well remained hemodynamically stable. Patient will be discharged home today with follow-up with general surgery in approximately 1 week. #Acute cholecystitis #S/p laparoscopic cholecystectomy ? Patient doing well postprocedure. Laparoscopic cholecystectomy completed without issues, gallbladder was noted to be inflamed. Cefepime and Flagyl prophylactically started. No leukocytosis, no anemia. Patient remained hemodynamically stable post procedure. ? Tolerated p.o. full liquid dinner without issue. Patient we discharged home with [place] 5/325 every 4 hours as needed for pain. #Urinary tract infection ? Patient urinalysis just of of UTI, will positive for leuk esterase and WBC. Patient was covered during hospital admission with cefepime, will discharge home with Macrobid twice daily to complete 3 more days. #Depression: Continue Wellbutrin 150 mg twice daily. #Hypokalemia: Potassium on admission 3.1, replaced per protocol during admission. Potassium day of discharge 4.0. Exam Data for Last 24 hours Vital signs and Labs for Last 24 Hours: Temp Pulse Resp BP Pulse Ox O2 Del Method O2 Flow Rate 98.0 F 65 16 117/75 92 L Room Air 2 02/28/25 04:00 02/28/25 04:00 02/28/25 04:00 02/28/25 04:00 02/28/25 04:00 02/28/25 06:36 02/27/25 05:00 Laboratory Results - last 24 hr 02/27/25 06:23: Troponin I < 0.01 02/28/25 06:09: WBC 8.5, RBC 4.32, Hgb 12.7, Hct 36.8 L, MCV 85.2, MCH 29.4, MCHC 34.5, RDW 12.1, Plt Count 205, MPV 10.6 H, Neut % (Auto) 85.1 H, Lymph % (Auto) 8.3 L, [place] % (Auto) 6.3, Eos % (Auto) 0.0 L, Baso % (Auto) 0.1, Neut # (Auto) 7.2, Lymph # (Auto) 0.7, [place] # (Auto) 0.5, Eos # (Auto) 0.0, Baso # (Auto) 0.0, Sodium 139, Potassium 4.0, Chloride 108 H, Carbon Dioxide 24, Anion Gap 11.0, BUN 5 L D, Creatinine 0.70, Estimated Creat Clear 102, Estimated GFR 88, Est GFR ( Amer) 107, Glucose 114 H, Calcium 8.2 L, Magnesium 1.8, Total Bilirubin 0.7, AST 71 H D, ALT 103 H D, Alkaline Phosphatase 61, Total Protein 6.1 L, Albumin 4.1 D, Globulin 2.0, Albumin/Globulin Ratio 2.1 H I & O for Last 24 hours: Intake & Output 02/25/25 02/26/25 02/27/25 02/28/25 23:59 22:59 23:59 23:59 Intake Total 3400 / 3650 450 / 450 Output Total 1200 / 1400 550 / 550 Balance 2200 / 2250 -100 / -100 Weight 66.48 kg 67.84 kg Constitutional Constitutional: no acute distress, average body habitus and cooperative *Routine HEENT Exam Head: Present normocephalic Eye: Present EOMI and PERRL ENT: Present mucous membranes moist *Routine Neck Exam Neck: Present supple; Absent lymphadenopathy *Routine Respiratory Exam Respiratory: Present CTA bilaterally and normal respiratory effort; Absent wheezes or crackles *Routine Cardiovascular Exam Cardiovascular: Present RRR *Routine Abdominal Exam Abdominal: Present soft, normoactive bowel sounds and tenderness (Nonfocal) *Routine Rectal Exam Patient deferred: visual exam *Routine Exam Patient deferred: external exam *Routine Extremities Exam Extremities: Absent cyanosis, clubbing or edema *Routine Skin Exam Skin: Present intact, dry and warm; Absent rash *Routine Neurological Exam Neurological: Present alert, oriented X3, vision grossly intact, hearing grossly intact and normal speech Routine Psychiatric Exam Psychiatric: Present normal affect Results Data Completed and Pending Labs on day of discharge: Labs from last 24 hours 02/28/25 02/27/25 06:09 06:23 WBC 8.5 RBC 4.32 Hgb 12.7 Hct 36.8 L MCV 85.2 MCH 29.4 MCHC 34.5 RDW 12.1 Plt Count 205 MPV 10.6 H Neut % (Auto) 85.1 H Lymph % (Auto) 8.3 L [place] % (Auto) 6.3 Eos % (Auto) 0.0 L Baso % (Auto) 0.1 Neut # (Auto) 7.2 Lymph # (Auto) 0.7 [place] # (Auto) 0.5 Eos # (Auto) 0.0 Baso # (Auto) 0.0 Sodium 139 Potassium 4.0 Chloride 108 H Carbon Dioxide 24 Anion Gap 11.0 BUN 5 L D Creatinine 0.70 Estimated Creat Clear 102 Estimated GFR 88 Est GFR ( Amer) 107 Glucose 114 H Calcium 8.2 L Magnesium 1.8 Total Bilirubin 0.7 AST 71 H D ALT 103 H D Alkaline Phosphatase 61 Troponin I < 0.01 Total Protein 6.1 L Albumin 4.1 D Globulin 2.0 Albumin/Globulin Ratio 2.1 H DS: Diagnosis Discharge Diagnosis (1) Status post laparoscopic cholecystectomy: Status: Acute Code(s): Z90.49 - Acquired absence of other specified parts of digestive tract (2) Acute cholecystitis: Status: Acute Code(s): K81.0 - Acute cholecystitis (3) Depression: Status: Acute Code(s): F32.A - Depression, unspecified (4) Hypokalemia: Status: Acute Code(s): E87.6 - Hypokalemia (5) Urinary tract infection: Status: Acute Code(s): N39.0 - Urinary tract infection, site not specified Meds Home Medications and Allergies Home Medications ?Medication ?Instructions ?Recorded ?Confirmed ?Type bupropion HCl 75 mg tablet 150 mg PO BID 02/27/2507/19 History hydrocodone 5 mg-acetaminophen 325 1 tab PO Q4HP PRN M oderate To 02/28/25 Rx mg tablet Severe Pain (4-10) 3 days #1 5 tabs nitrofurantoin 100 mg PO Q12H 3 days #6 cap s 02/28/25 Rx monohydrate/macrocrystals 100 mg capsule (Macrobid) New Prescriptions to Start Prescriptions: hydrocodone-acetaminophen Jenn Cruz nitrofurantoin monohyd/m-cryst [Macrobid] Jenn Cruz Allergies Allergy/AdvReac Type Severity Reaction Status Date / Time Penicillins Allergy Verified 12/06/24 09:49 Discharge Plan Disposition Patient Disposition: Home, Self-Care Condition: Good Follow up Plan Follow up with: Ishan Yuen MD [Staff Physician, General Surgery] - 03/14/25 9:45 am Kimi Puente APRN [Primary Care Provider, Medical] - 03/06/25 11:00 am Prescriptions/Medication Reconciliation: New hydrocodone-acetaminophen 5-325 mg Tablet 1 tab PO Q4HP PRN (Reason: Moderate To Severe Pain (4-10)) 3 Days Qty: 15 0RF nitrofurantoin monohyd/m-cryst [Macrobid] 100 mg capsule 100 mg PO Q12H 3 Days Qty: 6 0RF Rx Instructions: must administer with a meal/food Continued bupropion HCl 75 mg tablet 150 mg PO BID Patient Comments: TAKE 1 TABLET BY MOUTH TWICE DAILY Problem Reconciliation Problems Reviewed?: Yes Patient Discharge Instructions ACTIVITY: Continue current activity and No heavy lifting DIET: advance to your usual diet Patient Instructions: DI for Surgical Site Infection, Laparoscopic Cholecystectomy Surgery, Hypokalemia, DI for Cholecystitis, DI for Laparoscopic Cholecystectomy Print Language: Kiswahili Providers Primary Care Provider: Kimi Puente Admit Provider: Regino Chappell Attending Provider: Regino Chappell
--- NOTE | 2025-02-28 08:27 | P.PN_ITS ---
Subjective Narrative: Doing well. Feels better. Some minor soreness. Tolerating diet. Exam Data for Last 24 hours Vital signs and Labs for Last 24 Hours: Temp Pulse Resp BP Pulse Ox O2 Del Method O2 Flow Rate 98.0 F 65 16 117/75 92 L Room Air 2 02/28/25 04:00 02/28/25 04:00 02/28/25 04:00 02/28/25 04:00 02/28/25 04:00 02/28/25 06:36 02/27/25 05:00 Laboratory Results - last 24 hr 02/27/25 06:23: Troponin I < 0.01 02/28/25 06:09: WBC 8.5, RBC 4.32, Hgb 12.7, Hct 36.8 L, MCV 85.2, MCH 29.4, MCHC 34.5, RDW 12.1, Plt Count 205, MPV 10.6 H, Neut % (Auto) 85.1 H, Lymph % (Auto) 8.3 L, [place] % (Auto) 6.3, Eos % (Auto) 0.0 L, Baso % (Auto) 0.1, Neut # (Auto) 7.2, Lymph # (Auto) 0.7, [place] # (Auto) 0.5, Eos # (Auto) 0.0, Baso # (Auto) 0.0, Sodium 139, Potassium 4.0, Chloride 108 H, Carbon Dioxide 24, Anion Gap 11.0, BUN 5 L D, Creatinine 0.70, Estimated Creat Clear 102, Estimated GFR 88, Est GFR ( Amer) 107, Glucose 114 H, Calcium 8.2 L, Magnesium 1.8, Total Bilirubin 0.7, AST 71 H D, ALT 103 H D, Alkaline Phosphatase 61, Total Protein 6.1 L, Albumin 4.1 D, Globulin 2.0, Albumin/Globulin Ratio 2.1 H I & O for Last 24 hours: Intake & Output 02/25/25 02/26/25 02/27/25 02/28/25 11:59 10:59 11:59 11:59 Intake Total 1200 / 1200 2650 / 2650 Output Total 0 / 0 1750 / 1750 Balance 1200 / 1200 900 / 900 Weight 146 lb 9 oz 149 lb 9 oz *Routine Abdominal Exam Abdominal: Present soft Comments: Minimal serosanguineous drainage on the umbilical incision. Progress Note: A&P Assessment and plan (1) Status post laparoscopic cholecystectomy: Status: Acute (2) Acute cholecystitis: Status: Acute (3) Depression: Status: Acute (4) Hypokalemia: Status: Acute Assessment and Plan Assessment and Plan for All Diagnoses:: Okay for discharge home. Should not require antibiotics. Recommend refraining from work this week given acute cholecystitis requiring surgery. Office appointment in a couple weeks.
--- NOTE | 2025-02-28 11:29 | EXP.ANES.II ---
[facility] Anesthesia Record Part II Anesthesia Record Part II Discharge Time: 16:05 Destination: Medical Surgical Department PACU nurse assessment reviewed?: Yes Patient Condition:: Good Anesthesia Complications:: None Swallowing reflex intact?: Yes Airway Patency: Patent Cyanosis?: No Blood Pressure: 132/76 SaO2: 99 Respiratory Rate: 20 Pulse Rate: 62 Temperature: 97.5 F Mental Status: Alert & Oriented Pain level:: 0 Nausea and/or vomitting:: None Intake, IV Amount: 0 Hydration: Adequate
[2025-02-28 11:30] VITALS: BP 132/76; PULSE 62; RESP 20; TEMP 36.4; O2SAT 99
--- NOTE | 2025-03-02 10:09 | SW/DCPLANNER ---
Addendum entered by Breana Diallo 03/02/25 13:57: Patient was readmitted today and i will call when she is discharged from the hospital on the newest discharge. David Molina Original Note: Attempted to call patient and she is present in our ED. I will do a follow up phone call tomorrow. David Molina
== END 2025-02-28 10:14 | disposition home or self-care (01) ==
LOC: ER 03:50 → 2ND 03:54
PROVIDERS: Nurse Practitioner Acute Care; Surgery; Admitting Provider Internal Medicine Adolescent Medicine; Emergency Provider Emergency Medicine; PCP Nurse Practitioner Family; Visit Provider Internal Medicine Adolescent Medicine
PROC: 0FT44ZZ Resection of Gallbladder, Percutaneous Endoscopic Approach (ICD-10-PCS; CPT 47562; principal; 2025-02-27 11:30)
DX: K80.10 Calculus of gallbladder with chronic cholecystitis without obstruction (principal); N39.0 Urinary tract infection, site not specified; F32.A Depression, unspecified; K85.10 Biliary acute pancreatitis without necrosis or infection; K82.1 Hydrops of gallbladder; E87.6 Hypokalemia; Z88.0 Allergy status to penicillin; Z90.49 Acquired absence of other specified parts of digestive tract; Z79.899 Other long term (current) drug therapy
CPT/HCPCS: 47562; 36415; 74177; 76705; 80048; 80053; 80076; 81001; 83605; 83690; 83735; 84484; 84703; 85025; 85610; 86803; 87086; 87389; 93005; 96361; 96365; 96366; 96367; 96375; 96376; 99285; G0378; J0692; J0736; J1100; J1836; J1885; J2003; J2250; J2270; J2405; J2704; J2795; J3010; J7030; J7120; Q9967

== ENCOUNTER 2025-03-02 09:34 | Inpatient (IN) | payer OTHER, SELFPAY ==
[2025-03-02] VITALS (23 sets, daily range): BP systolic 100–164; BP diastolic 52–91; PULSE 56–80; RESP 12–95; TEMP 35.8–36.8; O2SAT 94–99; BMI 25.6; BMI 26.5
--- NOTE | 2025-03-02 09:49 | CT_ITS ---
FINAL REPORT TECHNIQUE: Thin section axial images are obtained through the abdomen and pelvis after intravenous contrast. Reconstruction images were obtained from the axial data. Exam was performed using dose reduction techniques. This study was performed with techniques to keep radiation doses as low as reasonably achievable (ALARA). Individualized dose reduction techniques using automated exposure control or adjustment of mA and/or kV according to the patient's size were employed. CLINICAL HISTORY: abdominal pain s/p cholecystectomy COMPARISON: 02/27/2025 FINDINGS: LUNG BASES: There are new ground glass opacities in the lower lobes worrisome for pneumonia. Aspiration is not excluded. Heart size is normal. LIVER: There is mild intrahepatic ductal dilatation, unchanged since the prior exam. No focal lesion. GALLBLADDER/BILIARY SYSTEM: In the interval since the prior CT examination of 02/27/2025 the gallbladder has been resected. There is a small amount of fluid present in the gallbladder fossa, within normal limits for postoperative change. No localized fluid collection is identified. SPLEEN: Unremarkable. PANCREAS: Unremarkable. ADRENALS: Unremarkable. KIDNEYS/URETERS/BLADDER: No hydronephrosis, renal mass, or renal stone. Unremarkable urinary bladder. GI TRACT: No small bowel obstruction or dilatation. Normal appendix. No other GI abnormality is identified. PELVIC ORGANS: The uterus and ovaries are unremarkable for age. LYMPH NODES/RETROPERITONEUM/MESENTERY: No lymphadenopathy. No abdominal aortic aneurysm. ABDOMINAL WALL: The abdominal wall is intact. FREE FLUID: No ascites. BONES: No acute osseous abnormality. IMPRESSION: 1. Interval cholecystectomy since the prior exam of 02/27/2025. There is a small amount of fluid in the gallbladder fossa, which is within normal limits for postoperative change. Minimal intrahepatic biliary ductal dilatation is noted, which is unchanged from the prior exam. 2. New ground glass opacities in the lower lobes, worrisome for pneumonia although aspiration is not excluded. Reviewed, Interpreted and Dictated by Jelena Cano MD Transcribed by Brandy Hebert Authenticated and [facility]
--- NOTE | 2025-03-02 09:51 | ED_ITS ---
Discharge Plan Disposition Patient Disposition: Admitted Condition: Good Clinical Impressions Clinical Impression: Choledocholithiasis Discharge ED Provider: Blessing Rivera General Adult HPI General Chief complaint: Abdominal Pain Stated complaint: [id number], pain in Rt side rib/back Time Seen by Provider: 03/02/25 09:48 History of Present Illness HPI narrative: Patient is a 49-year-old female who presented to the emergency department with epigastric pain that radiated into her back that started during the night. Patient states that she was recently discharged on the fourth after she had a cholecystectomy performed on the third. Patient states that she had been pain- free but her pain returned last night. Patient has not had any fevers. Patient reports nausea but no vomiting. Patient denies any diarrhea. Patient states that she was discharged home with antibiotics. Patient states that she was told that she had multiple gallstones during her surgery. Patient reports gallstone pancreatitis in the past but no other medical problems. Patient does not take any other daily medications. Related Data Home Medications ?Medication ?Instructions ?Recorded ?Confirmed bupropion HCl 75 mg tablet 75 mg PO BID 02/27/2503/02 Previous Rx's ?Medication ?Instructions ?Recorded hydrocodone 5 mg-acetaminophen 325 1 tab PO Q4HP PRN M oderate To 02/28/25 mg tablet Severe Pain (4-10) 3 days #1 5 tabs nitrofurantoin 100 mg PO Q12H 3 days #6 cap s 02/28/25 monohydrate/macrocrystals 100 mg capsule (Macrobid) Allergies Allergy/AdvReac Type Severity Reaction Status Date / Time Penicillins Allergy Hives Verified 03/02/25 12:48 [facility] Disclaimer: The information contained in this section may have been updated after the patient was seen, as this information can be updated by other users. Medical History (Updated 03/02/25 @ 16:19 by Juan Manuel Sher II, MD) Urinary tract infection Surgical History History of Family History (Updated 03/02/25 @ 14:08 by Amee Willoughby RN) Other Cardiac disease Family history of cancer Melanoma Renal disease Social History (Updated 03/02/25 @ 14:08 by Amee Willoughby, NANCY) Smoking Status: Current every day smoker alcohol intake: never substance use type: denies use current occupational status: employed Travel in the last 8 weeks?: Inside the [place] Have you lived/traveled outside [place] in past 30 days?: No Contact w/someone who lives/traveled outside US past 30 days?: No Exposure to someone with infectious disease in past 14 days?: No Do you have a fever (greater than 100.4 F or 38 C)?: No Have you tested positive for COVID-19?: No Exposed to someone with COVID-19 in past 14 days?: No Do you have a sore throat?: No Do you have a cough?: No Do you have any weakness?: No Do you have any diarrhea?: No Are you experiencing any unusual bleeding?: No Do you have any muscle aches/pain?: No Do you have any abdominal pain?: No Are you experiencing loss of taste or smell?: No Other Medical History Have you received the Flu Vaccine for this season: No Have you received the Pneumonia Vaccine: No ROS Obtained: Yes All systems reviewed & no additional complaints except as documented and Yes Systems reviewed as appropriate & no additional complaints except as documented Physical Exam General General appearance: alert and in no apparent distress Head Head exam: atraumatic, normocephalic and normal inspection Eye Eye exam: Present normal appearance, PERRL and EOMI; Absent scleral icterus ENT ENT exam: Present normal exam and normal external ear exam Neck Neck exam: Present normal inspection and full ROM Chest Chest inspection: Present normal inspection and symmetric chest wall rise Respiratory Respiratory exam: Present normal lung sounds bilaterally; Absent respiratory distress or wheezes Cardiovascular Cardiovascular exam: Present regular rate, normal rhythm and normal heart sounds Abdominal Exam Abdominal exam: Present soft, distention and tenderness (epigastric tenderness); Absent guarding or rebound Extremities Exam Extremities exam: Present normal inspection and full ROM Back Exam Back exam: Present normal inspection and full ROM Neurological Exam Neurological exam: Present alert and oriented X3 Psychiatric Psychiatric exam: Present normal affect and normal mood Skin Skin exam: Present warm and dry Medical Decision Making Medical Records Medical records reviewed: Yes I reviewed the patient's medical records. Screening: Per USPSTF and CDC recommendations, given the prevalence of disease in our region, it is our hospital?s policy to screen for HIV and viral Hepatitis for all patients aged 18 and over and those with ongoing risk factors. [place] Inquiry Pt receiving controlled substance: No Vital Signs: 03/02/25 09:35 03/02/25 09:45 03/02/25 10:00 Temperature 98.2 F Temperature Source Oral Pulse Rate 65 62 Pulse Rate [Left Radial] 68 Respiratory Rate 20 Blood Pressure 157/77 H 136/91 H Blood Pressure [Right Arm] 157/77 H Blood Pressure Mean [Right Arm] 103 02 Sat by Pulse Oximetry 99 98 99 Oxygen Delivery Method Room Air 03/02/25 10:30 03/02/25 11:00 03/02/25 11:31 Temperature Temperature Source Pulse Rate 57 L 61 59 L Pulse Rate [Left Radial] Respiratory Rate Blood Pressure 157/91 H 164/89 H 132/86 Blood Pressure [Right Arm] Blood Pressure Mean [Right Arm] 02 Sat by Pulse Oximetry 98 99 97 Oxygen Delivery Method 03/02/25 12:00 03/02/25 12:30 03/02/25 12:50 Temperature 98.1 F Temperature Source Pulse Rate 63 63 57 L Pulse Rate [Left Radial] Respiratory Rate 20 Blood Pressure 142/82 H 135/80 155/80 H Blood Pressure [Right Arm] Blood Pressure Mean [Right Arm] 02 Sat by Pulse Oximetry 96 96 Oxygen Delivery Method Room Air 03/02/25 12:53 03/02/25 13:00 Temperature Temperature Source Pulse Rate Pulse Rate [Left Radial] Respiratory Rate Blood Pressure Blood Pressure [Right Arm] Blood Pressure Mean [Right Arm] 02 Sat by Pulse Oximetry Oxygen Delivery Method Room Air Room Air Lab Data Lab results reviewed: Yes I reviewed the patient's lab results. Lab Results 03/02/25 09:38: Urine Color Brown, Urine Appearance Cloudy, Urine pH 7.5, Ur Specific [place] 1.020, Urine Protein 1+ A, Urine Glucose (UA) Negative, Urine Ketones Negative, Urine Blood Negative, Urine Nitrate Negative, Urine Bilirubin 1+ A, Urine Urobilinogen 2.0, Ur Leukocyte Esterase Negative, Urine RBC None, Urine WBC None, Ur Squamous Epith Cells 3-5, Amorphous Sediment 1+, Urine Bacteria 1+, Fine Granular Casts Occasional 03/02/25 09:53: WBC 3.2 L D, RBC 4.69, Hgb 13.9, Hct 40.8, MCV 87.0, MCH 29.6, MCHC 34.1, RDW 12.5, Plt Count 228, MPV 10.7 H, Neut % (Auto) 56.3, Lymph % (Auto) 25.6, [place] % (Auto) 14.7 H, Eos % (Auto) 2.5, Baso % (Auto) 0.6, Neut # (Auto) 1.8, Lymph # (Auto) 0.8, [place] # (Auto) 0.5, Eos # (Auto) 0.1, Baso # (Auto) 0.0, PT 10.7, INR 0.96, Sodium 141, Potassium 4.3, Chloride 101, Carbon Dioxide 34 H, Anion Gap 10.3, BUN 8 D, Creatinine 0.80, Estimated Creat Clear 83, Estimated GFR 76, Est GFR ( Amer) 92, Glucose 96, Lactate 1.0, Calcium 8.9, Total Bilirubin 1.8 H, AST 1500 H* D, ALT 827 H*, Alkaline Phosphatase 144 H, Total Protein 7.3, Albumin 5.0, Globulin 2.3, A lbumin/Globulin Ratio 2.2 H, Lipase 81 03/02/25 09:53 03/02/25 09:53 Orders (Tests/Meds): ED MEDICATIONS Generic Name Dose Route Start Last Admin Trade Name Freq PRN Reason Stop Dose Admin Acetaminophen 650 mg 03/02/25 16:08 Acetaminophen 325mg Tab PO 04/01/25 16:07 Q4HP PRN Fever or Mild Pain (1-3) Hydrocodone Bitart/Acetaminophen 1 tab 03/02/25 16:08 Hydrocodone/Apap 5/325 Mg Tablet PO 04/01/25 16:07 Q4HP PRN Moderate Pain (4-6) Enoxaparin Sodium 40 mg 03/03/25 09:00 Enoxaparin 40mg/0.4ml Syringe SUBCUT 04/02/25 08:59 DAILY ANDREA Lactated Ringer's 1,000 mls @ 50 mls/hr 03/02/25 15:15 03/02/25 15:03 Lactated Ringer's 1000 Ml Bag IV 04/01/25 15:14 50 mls/hr .Q20H ANDREA Administration Morphine Sulfate 4 mg 03/02/25 16:08 Morphine 4mg/Ml Syringe IV 04/01/25 16:07 Q4HP PRN Severe Pain (7-10) Ondansetron HCl 4 mg 03/02/25 16:08 Ondansetron 4mg/2ml Vial IV 04/01/25 16:07 Q6HP PRN Nausea Sodium Chloride 10 ml 03/02/25 15:03 Sodium Chloride 0.9% 10ml Flush Syringe IV 04/01/25 15:02 NEEDED PRN Maintain IV Site Sodium Chloride 10 ml 03/02/25 15:03 Sodium Chloride 0.9% 10ml Flush Syringe IV 04/01/25 15:02 NEEDED PRN Maintain IV Site Discontinued Medications Generic Name Dose Route Start Last Admin Trade Name Freq PRN Reason Stop Dose Admin Cefepime HCl 2 gm/ Sodium 100 mls @ 200 mls/hr 03/02/25 10:34 03/02/25 11:40 Chloride IV 03/02/25 11:03 Infused ONCE ONE Infusion Metronidazole 500 mg in 100 mls @ 100 mls/hr 03/02/25 10:34 03/02/25 12:51 Flagyl 500mg/100ml Ivpb IV 03/02/25 11:33 Infused ONCE ONE Infusion Iopamidol 75 ml 03/02/25 10:12 03/02/25 10:14 Iopamidol-370 (76%);100ml Bottle IV 03/02/25 10:13 75 ml ONCE ONE Administration Ketorolac Tromethamine 30 mg 03/02/25 09:57 03/02/25 10:01 Ketorolac 30mg/Ml Vial IV 03/02/25 09:58 30 mg ONCE ONE Administration Morphine Sulfate 2 mg 03/02/25 11:07 03/02/25 11:14 Morphine 2mg/Ml Syringe IV 03/02/25 11:08 2 mg ONCE ONE Administration Ondansetron HCl 4 mg 03/02/25 09:57 03/02/25 10:01 Ondansetron 4mg/2ml Vial IV 03/02/25 09:58 4 mg ONCE ONE Administration Sodium Chloride 10 ml 03/02/25 10:12 03/02/25 10:14 Sodium Chloride 0.9% 10ml Syr (Rad Only) IV 03/02/25 10:13 10 ml ONCE ONE Administration ORDERS Category Date Time Status CT abdomen pelvis w con Stat Cat Scan 03/02/25 09:49 Completed CBC w/Auto Diff [Complete Blood Count Auto Diff] Stat Lab 03/02/25 09:53 Completed CMP [Comprehensive Metabolic Panel] Stat Lab 03/02/25 09:53 Completed Lactic Acid Stat Lab 03/02/25 09:53 Completed Lipase Stat Lab 03/02/25 09:53 Completed Prothrombin Time INR Stat Lab 03/02/25 09:53 Completed UA [Urinalysis and Microscopic] Stat Lab 03/02/25 09:38 Completed Blood Culture Stat Micro 03/02/25 10:39 Received Medical Decision Narrative: Patient is a 49-year-old female with no significant past medical history who recently had a cholecystectomy on February 27 who presented to the emergency department with epigastric pain that radiates into her back. On arrival, patient was hemodynamically stable with unremarkable vital signs. Differential includes but not limited to: Choledocholithiasis, postoperative pain, intra-abdominal abscess, electrolyte abnormalities, pancreatitis, amongst others. Patient's labs were reviewed and interpreted by myself: CBC showed no leukocytosis, hemoglobin was stable. CMP was notable for a bilirubin of 1.8, AST of 1500, ALT of 827 alk phos of 144. Lipase of 81. UA with bilirubin but no other evidence of infection. Was given Toradol and Zofran in the emergency department. CT scan of the abdomen was obtained which showed some fluid in the gallbladder fossa but no other acute findings. I discussed the case with Dr. Yuen who is patient's general surgeon as my suspicion is that patient's elevated LFTs were out of proportion for normal postoperative elevation. Dr. Yuen agreed and therefore I discussed the case with GI with plan to do an ERCP. Patient was ultimately admitted to the hospitalist with plan to do ERCP today. Blood cultures were obtained and patient was treated empirically with Zosyn. Patient was admitted to the hospitalist in stable condition. Critical Care Critical Care Time Critical Care Time: No
--- OUTSIDE RECORDS SUMMARY | 2025-03-02 09:53 | XMS_ITS | Clinical Summary ---
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
--- OUTSIDE RECORDS SUMMARY | 2025-03-02 09:53 | XMS_ITS | Data Portability ---
Author Organization [facility] ULYSSES [place] CLOSED Address [address] [facility] [address] [place] [address] Care Team Providers Care Community Service Representative Name Role Phone SUNITHA HENDERSON Primary Care Provider Assessment No assessment recorded. Plan of Treatment Reminders Order Date Submit Date Provider Last Modified By Organization Details Last Modified Time Details Appointments None recorde d. Lab glycohe moglobi n, total, blood 2021 [facility], [address] [place] [address], [id number], 14:43:09 lipid panel, serum 2021 [facility], [address] [place] [address], [address], 14:52:46 CBC w/ auto diff 2021 022 [facility], [address] [place] [address], [id number], 14:46:00 CMP, serum or plasma 2021 022 [facility], [address] [place] [address], [address], 14:52:48 TSH, serum or plasma 2021 022 [facility], [address] [place] [address], [address], 2 14:55:15 surgica l patholo gy study 2020 021 [facility], [address] [place] [address], [address], 1 09:47:02 cytolog y, vaginal /cervic al 2020 021 [facility], [address] [place] [address], [address], 1 08:32:02 HPV DNA, high-ri sk 2020 021 [facility], [address] [place] [address], [address], 1 15:35:54 Referral gastroe nterolo gist referra l [facility], [address] [facility], [place] [address], [place], [address], 2 09:03:57 Procedures None recorde d. Surgeries None recorde d. Imaging MAMMO, screeni ng, tomosyn thesis, bilater al, w/ CAD 2020 021 [facility], [address] [place] [address], [address], 1 10:05:08 Medication Orders famotid ine 20 mg tablet 2021 022 [email or web address] [facility] [address], [address], [id number], 2 15:40:55 bupropi on HCl XL 150 mg 24 hr tablet, extende d release 2020 021 [facility] [employer] [address], [address], [phone], 15:28:53 Patient TargetsNo targets recorded. Patient Instructions Encounter Date Encounter Id Patient Instructions Last Modified By Organization Details Last Modified Time 10/16/2020 [id number] pap smear with cotesting repeat 3y if normal mammogram scheduled menopausal symptom- discussed OTC, hormone replacement and SSRI she would like to try Wellbutrin has friends that use it and has really helped. Start wellbutrin daily cervical polyp removed today sent to pathology f/u med check 3 mos [email or web address] Not available 10/16/2020 15:32:00 11/09/2020 [id number] Risks/Benefits/O p tions/Side Effects of diagnosis and treatment discussed. 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 :SC-[id number] [phone] Copy to: Diagn osis: Cervi elisabet polyp [...] 09:45 Page 1 of 1 Not Available [facility] [address] [place] [address], [address], 10/18/2020 09:47:02 10/17/19 21 10/18/2020 HPV DNA, [...] infor orlando dangelo e refer to http: //[facility] felix ivanque stdia gnost ics.c om/fa q/FAQ 129d1 (This link if provi ded for infor laverne cook/ educa nelson l purpo ses only. ) TEST PERFO RMED AT: [facility] MAUREEN W[address]KINSON[address] [address] MARYCARMEN Fox MD Not Available [facility] [place], [address], 10/18/2020 15:35:54 10/17/1910/16/2020 PAP SMEAR Pap smear [...] RISK HPV Not Detec mini 2020 15:39 VALERIAOPAL LEWISE SS, CT (ASCP ) Clare d Out [...] s. Page 1 of 1 Not Available [facility] [address] [place] [address], [address], 10/19/2020 08:32:02 11/21/19 22 11/20/2021 GLYCO HEMOG LOBIN A1C glyco HGB A1C 5.2 % 0.0-5. 6 normal Not Available [facility] [address] [place], [address], 11/20/2021 14:43:09 11/21/19 22 11/20/2021 GLYCO HEMOG LOBIN A1C estimated avg. glucose 103 mg/dL _(elisabet c) normal A1c value s betwe en 5.7% to 6.4% indic ate predi abete s. Resul ts 6.5% or great er is diagn ostic of diabe keisha. Ameri can Diabe keisha Assoc iatio n (diab etes. org) Not Available [facility] [address] [place] [address], [address], 11/20/2021 14:43:09 11/21/19 22 11/20/2021 COMPL ETE BLOOD COUNT white blood cells 6.3 K/uL 3.8-10 .8 normal Not Available [facility] [address] [place] [address], [address], 11/20/2021 14:46:00 11/21/19 22 11/20/2021 COMPL ETE BLOOD COUNT red blood cells 4.86 M/uL 3.80-5 .20 normal Not Available [facility] [address] [place] [address], [address], 11/20/2021 14:46:00 11/21/19 22 11/20/2021 COMPL ETE BLOOD COUNT hemoglobin 14.5 g/dL 12.0-1 6.0 normal Not Available [facility] [address] [place] [address], [address], 11/20/2021 14:46:00 11/21/19 22 11/20/2021 COMPL ETE BLOOD COUNT hematocrit 41.7 % 35.0-4 7.0 normal Not Available [facility] [address] [place] [address], [address], 11/20/2021 14:46:00 11/21/19 22 11/20/2021 COMPL ETE BLOOD COUNT MCV 86 fL 80-100 normal Not Available [facility] [address] [place] [address], [address], 11/20/2021 14:46:00 11/21/19 22 11/20/2021 COMPL ETE BLOOD COUNT MCH 30 pg 26-35 normal Not Available [facility] [address] [place] [address], [address], 11/20/2021 14:46:00 11/21/19 22 11/20/2021 COMPL ETE BLOOD COUNT MCHC 35 g/dL 32-36 normal Not Available [facility] [address] [place] [address], [address], 11/20/2021 14:46:00 11/21/19 22 11/20/2021 COMPL ETE BLOOD COUNT RDW 13.7 % 11.0-1 5.0 normal Not Available [facility] [address] [place] [address], [address], 11/20/2021 14:46:00 11/21/19 22 11/20/2021 COMPL ETE BLOOD COUNT MPV 8.6 fL 6.2-10 .5 normal Not Available [facility] [address] [place] [address], [address], 11/20/2021 14:46:00 11/21/19 22 11/20/2021 COMPL ETE BLOOD COUNT platelet count 261 K/uL 130-40 0 normal Not Available [facility] [address] [place] [address], [address], 11/20/2021 14:46:00 11/21/19 22 11/20/2021 COMPL ETE BLOOD COUNT neutrophil,a bsolute 3.6 K/uL 1.6-8. 4 normal Not Available [facility] [address] [place] [address], [address], 11/20/2021 14:46:00 11/21/19 22 11/20/2021 COMPL ETE BLOOD COUNT lymphocyte,a bsolute 1.9 K/uL 0.4-5. 1 normal Not Available [facility] [address] [place] [address], [address], 11/20/2021 14:46:00 11/21/19 22 11/20/2021 COMPL ETE BLOOD COUNT monocyte,abs olute 0.6 K/uL 0.0-1. 2 normal Not Available [facility] [address] [place] [address], [address], 11/20/2021 14:46:00 11/21/19 22 11/20/2021 COMPL ETE BLOOD COUNT eosinophil,a bsolute 0.2 K/uL 0.0-0. 8 normal Not Available [facility] [address] [place] [address], [address], 11/20/2021 14:46:00 11/21/19 22 11/20/2021 COMPL ETE BLOOD COUNT basophil,abs olute 0.0 K/uL 0.0-0. 3 normal Not Available [facility] [address] [place] [address], [address], 11/20/2021 14:46:00 11/21/19 22 11/20/2021 COMPL ETE BLOOD COUNT % neutrophils 56.5 % 42.0-7 8.0 normal Not Available [facility] [address] [place] [address], [address], 11/20/2021 14:46:00 11/21/19 22 11/20/2021 COMPL ETE BLOOD COUNT % lymphocytes 30.4 % 11.0-4 7.0 normal Not Available [facility] [address] [place] [address], [address], 11/20/2021 14:46:00 11/21/19 22 11/20/2021 COMPL ETE BLOOD COUNT % monocytes 9.7 % 0.0-11 .0 normal Not Available [facility] [address] [place] [address], [address], 11/20/2021 14:46:00 11/21/19 22 11/20/2021 COMPL ETE BLOOD COUNT % eosinophils 2.9 % 0.0-7. 0 normal Not Available [facility] [address] [place] [address], [address], 11/20/2021 14:46:00 11/21/19 22 11/20/2021 COMPL ETE BLOOD COUNT % basophils 0.5 % 0.0-3. 0 normal Not Available [facility] [address] [place] [address], [address], 11/20/2021 14:46:00 11/21/19 22 11/20/2021 COMPL ETE BLOOD COUNT nucleated red cells 0.0 % 0.0-0. 9 normal Not Available [facility] [address] [place] [address], [address], 11/20/2021 14:46:00 11/21/19 22 11/20/2021 COMPL ETE BLOOD COUNT nucleated RBCs, absolute 0.00 K/uL not estab. normal Not Available [facility] [address] [place] [address], [address], 11/20/2021 14:46:00 11/21/19 22 11/20/2021 LIPID PROFI LE HDL cholesterol 47 abnormal Male > 39 mg/dL Femal e > 49 mg/dL Not Available [facility] [address] [place] [address], [address], 11/20/2021 14:52:45 11/21/19 22 11/20/2021 LIPID PROFI LE triglyceride s 185 mg/dL 0-149 high TRIGL YCERI DE RANGE S CHARELS L: < 150 BORDE RLINE HIGH: 150 - 199 HIGH: 200 - 499 VERY HIGH: > OR = 500 Not Available [facility] [address] [place] [address], [address], 11/20/2021 14:52:45 11/21/19 22 11/20/2021 LIPID PROFI LE cholesterol 245 mg/dL 0-199 high HERIBERTO STERO L (TOTA L) RANGE S ADA ABLE: < 200 BORDE RLINE : 200 - 239 HIGHE R RISK: > 239 Not Available [facility] [address] [place] [address], [address], 11/20/2021 14:52:45 11/21/19 22 11/20/2021 LIPID PROFI LE LDL cholesterol 161 mg/dL _(elisabet c) 0-99 high LDL HERIBERTO STERO L RANGE S OPTIM AL: < 100 NEAR/ ABOVE OPTIM AL: 100 - 129 BORDE RLINE HIGH: 130 - 159 HIGH: 160 - 189 VERY HIGH: > OR = 190 Not Available [facility] [address] [place] [address], [address], 11/20/2021 14:52:45 11/21/19 22 11/20/2021 COMP. METAB OLIC PANEL glucose 92 mg/dL 74-100 normal Not Available [facility] [address] [place] [address], [address], 11/20/2021 14:52:48 11/21/19 22 11/20/2021 COMP. METAB OLIC PANEL blood urea nitrogen 11 mg/dL 6-20 normal Not Available [facility] [address] [place] [address], [address], 11/20/2021 14:52:48 11/21/19 22 11/20/2021 COMP. METAB OLIC PANEL creatinine 0.88 mg/dL 0.50-0 .95 normal Not Available [facility] [address] [place] [address], [address], 11/20/2021 14:52:48 11/21/19 22 11/20/2021 COMP. METAB OLIC PANEL BUN/creatini ne ratio 13 (calc ) 10-20 normal Not Available [facility] [address] [place] [address], [address], 11/20/2021 14:52:48 11/21/19 22 11/20/2021 COMP. METAB OLIC PANEL sodium 144 mmol/ L 136-14 5 normal Not Available [facility] [address] [place] [address], [address], 11/20/2021 14:52:48 11/21/19 22 11/20/2021 COMP. METAB OLIC PANEL potassium 4.6 mmol/ L 3.4-5. 0 normal Not Available [facility] [address] [place] [address], [address], 11/20/2021 14:52:48 11/21/19 22 11/20/2021 COMP. METAB OLIC PANEL chloride 105 mmol/ L 98-107 normal Not Available [facility] [address] [place] [address], [address], 11/20/2021 14:52:48 11/21/19 22 11/20/2021 COMP. METAB OLIC PANEL carbon dioxide 27 mmol/ L 22-31 normal Not Available [facility] [address] [place] [address], [address], 11/20/2021 14:52:48 11/21/19 22 11/20/2021 COMP. METAB OLIC PANEL anion gap 12 (calc ) 7-25 normal Not Available [facility] [address] [place] [address], [address], 11/20/2021 14:52:48 11/21/19 22 11/20/2021 COMP. METAB OLIC PANEL calcium 9.8 mg/dL 8.6-10 .2 normal Not Available [facility] [address] [place] [address], [address], 11/20/2021 14:52:48 11/21/19 22 11/20/2021 COMP. METAB OLIC PANEL total protein 7.0 g/dL 6.4-8. 3 normal Not Available [facility] [address] [place] [address], [address], 11/20/2021 14:52:48 11/21/19 22 11/20/2021 COMP. METAB OLIC PANEL albumin 4.6 g/dL 3.5-5. 2 normal Not Available [facility] [address] [place] [address], [address], 11/20/2021 14:52:48 11/21/19 22 11/20/2021 COMP. METAB OLIC PANEL globulin 2.4 g/dL_ (calc ) 1.5-4. 5 normal Not Available [facility] [address] [place] [address], [address], 11/20/2021 14:52:48 11/21/19 22 11/20/2021 COMP. METAB OLIC PANEL albumin/glob ulin ratio 1.9 (calc ) 1.1-2. 5 normal Not Available [facility] [address] [place] [address], [address], 11/20/2021 14:52:48 11/21/19 22 11/20/2021 COMP. METAB OLIC PANEL bilirubin, total 0.4 mg/dL 0.1-1. 2 normal Not Available [facility] [address] [place] [address], [address], 11/20/2021 14:52:48 11/21/19 22 11/20/2021 COMP. METAB OLIC PANEL alkaline phosphatase 71 U/L 30-121 normal Not Available [facility] [address] [place] [address], [address], 11/20/2021 14:52:48 11/21/19 22 11/20/2021 COMP. METAB OLIC PANEL AST 17 U/L 0-32 normal Not Available [facility] [address] [place] [address], [address], 11/20/2021 14:52:48 11/21/19 22 11/20/2021 COMP. METAB OLIC PANEL ALT 20 U/L 0-33 normal Not Available [facility] [address] [place] [address], [address], 11/20/2021 14:52:48 11/21/19 22 11/20/2021 COMP. METAB [...] s/KDO QI/gf r_cal culat orPed Not Available [facility] [address] [place] [address], [address], 11/20/2021 14:52:48 11/21/19 22 11/20/2021 TSH TSH 2.750 uIU/m L 0.270- 4.200 normal Not Available [facility] [address] [place] [address], [address], 11/20/2021 14:55:15 11/01/19 21 10/18/2020 MAMMO , scree heather, tomos ynthe sis, bilat eral, w/ CAD [facility] [address] [place] [address] Cecilia howard Name: JACOB howard : 89 [...] Robb Hawkins MD on 11/01/19 9:59 AM [facility] [address], [address], 10/31/2020 16:25:11 Result Notes Documentation Provider Name and Address Organization Details Recorded Time Mammo, Screening, Tomosynthesis, Bilateral, W/ Cad : [address] [address] Patient Name: MELISSA BLACK Patient : 1975 Age: 45 years Patient Ordering Provider: MELANIE LR EXAM DATE: 10/18/2020 EXAM: MG SCREENING RANDOLPH MAMMOGRAM INDICATION: Routine screening. PROCEDURE: Multislice imaging of both breasts was performed in standard projections using [employer] tomosynthesis equipment (3D mammography). 2D images [...] By: Robb Hawkins MD ARET ANAYA PA-C [address] [place] [address], [address], [facility] 10/31/2020 11:50:12 Problems Name Problem SNOMED Code Status Onset Date Resolution Date Notes Provider Name and Address Organization Details Recorded Time Menopausal syndrome 194915160 Active 2021 SUNITHA HENDERSON MD [address] [place] [address], [address] , [facility] 2 13:16:04 Dyslipidemia 361103919 Active 2021 ASCVD risk 1.6% SUNITHA HENDERSON MD [address] [place], [address] , [facility] 2 16:31:20 Body mass index 25-29 - overweight 247255064 Active 2021 SUNITHA HENDERSON MD [facility] [place], [address] , [facility] 2 17:09:19 Problem Notes None recorded. Procedures Surgical History Date Name Laterality Status Provider Name and Address Organization Details Recorded Time 1 Destruction BN Lesions completed Patricia Edouard [facility] 11/09/2020 11:52:08 1 Pap Smear collection completed MELANIE LR APRN [address] [place] [address], [address] [place] [address] 10/16/2020 15:20:35 1 Cervical Polypectomy completed MELANIE LR APRN [address] [place], [address] [place] [address] 10/16/2020 15:32:34 1 Date of Last Pap Smear completed Gail Herman [facility] 10/26/2020 08:25:03 Imaging Results None recorded. Procedure Notes None recorded. Medical Equipment None Reported. Allergies Allergen ID Allergen Name Allergen Category Reaction Reaction Severity Criticality Documentation Date Start Date Code Code System Note Provider Name and Address Organization Details Recorded Time 383589 Product containin g penicilli n (product) medicatio n Not available Not available Not available 10/16/2020 09965 8001 [facility] 14:55:14 Medications Name Sig Start Date [...] Address Organization Details Last Updated DateTime 10/16/2020 58531.78 g 110/76 mm[Hg] Julian [facility] 10/16/2020 15:05:09 Date Recorded Body weight Body mass index (BMI) Body height Respiratory rate Heart rate Oxygen saturation Oxygen saturation in Arterial blood by Pulse oximetry Body temperature Systolic And Diastolic Provider Name and Address Organization Details Last Updated DateTime 77949.3 7 g 29.4 kg/m2 157.48 cm 16 /min 84 /min 98 % 98 % 99.1 [degF] 124/82 mm[Hg] Michelle Mckee [facility] 15:09:59 Social History None recorded. Functional [...] ICD10 Code Diagnosis IMO Codes Diagnosis Note [id number] MELANIE LR APRN [facility] [place] [facility] [address] [place] [address] 10/16/2020 14:34:26 10/16/2020 15:35:22 Routine gynecologic examination done 7949048374 9101 Z01.419 Screening for malignant neoplasm of cervix 733902188 Z12.4 Infection screening 2437 59481 Z11.51 Screening for malignant neoplasm of breast 304490487 Z12.31 Menopausal syndrome 1237 32186 N95.9 Polyp at cervical os 248 460944 N84.1 [id number] PANTERA ROSSI PA-C [facility] [address] [place] [address] 11/09/2020 11:18:06 11/09/2020 12:26:02 Inflamed seborrheic keratosis 050373175 L82.0 CRYO X 1 LEFT FRONTAL SCALPPT ADVISED WHAT TO EXPECT FROM FREEZINGF/ U IF DOES NOT RESOLVE Multiple b enign melanocytic nevi 327774335 D22.9 BENIGN APPEARANCE ; PT REASSURED; MONITOR CLOSELY FOR CHANGESOBT AINED PHOTOGRAPH S TODAYRECOM MENDED FSE IN A FEW MONTHS TO RE-EVALUAT E NEVUS ON LEFT UPPER ABDOMEN FOR POSSIBLE BX ONCE SUMMER IS OVERF/U IN MARCH FOR FSE OR SOONER IF ANY NEW OR CHANGING LESIONS Solar lentiginosis 50438 2006 L81.4 BENIGN APPEARANCE ; PT REASSUREDR ECOMMENDED SUN PROTECTIVE CLOTHING/H ATS AND OTC SPF 30+ EQUATE SPORT OR BLUE LIZARD SUNSCREEN DAILY [id number] SUNITHA HENDERSON MD [address] [address] 11/19/2021 14:50:43 11/21/2021 12:38:13 Adult health examination 890539767 Z00.00 Discussed the importance of a healthy [...] yes Screening for malignant neoplasm of colon 199925370 Z12.11 Body mass index 25-29 - overweight 329032761 Z68.29 Gastroesop hageal reflux disease without esophagitis 569383206 K21.9 trial of famotidine f/u 6 months Unintentio nal weight gain 1822465629 22525 R63.5 will check labsrecomm end reducing caloric intake and exercise Screening mammography 24 894637 Z12.31 UTD 09/2021 Screening for malignant neoplasm of cervix 749522279 Z12.4 UTD 09/2020 Health Concerns Section Related Observation LastModified by Organization Detai ls LastModified Time None Recorded Concern Status LastModified by Organization Details LastModified Time None Recorded Advance Directives Directive None Recorded Payers Insurance Date Sequence Insurance Name Policy Number Policy Miranda Covered Member ID Miranda Member ID Guarantor Name 07/08/2022 1 [place] 162 Melissa Black [id number] Melissa Black 07/19/2022 1 [place] [id number] Melissa Oh [id number] Melissa Black 11/18/2021 1 [place] [id number] 1 Orlando Black [id number] Melissa Black 06/05/2022 1 [facility] [id number] Orlando Black [id number] Melissa Black Notes Date Note Type Note Provider Name and Address Organization Details Recorded Time 10/16/2020 text/html 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 (-)ITCH/BLEED/MEY N. 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 NO TX 2) CHECK BACK PT DECLINED FSE no issues with bleeding, scarring, or healing Denies any other new, changing, or bleeding lesions, or other rashes, feels well, in a good mood, and has no family history of melanoma. PANTERA ROSSI PA-C [address] [place], [address], [facility] 11/09/2020 12:33:23 11/19/2021 text/html ROS as noted in the HPI 46-year-old female new patient with history of menopausal syndrome presents to establish care for annual wellness check and physical exam. She moved her from [place] about 5 years ago and has not [...] is taking wellbutrin. SUNITHA HENDERSON MD [address] [place], [address], [facility] 11/19/2021 15:41:35 OBGyn Episode No OBEpisode recorded.
--- OUTSIDE RECORDS SUMMARY | 2025-03-02 09:53 | XMS_ITS | Data Portability ---
Author Organization [place] - [facility] Address [address] [place] [address] Care Team Providers Care Returned Item Clerk Name Role Phone KRISTEN HANSEN Primary Care Provider KRISTEN HANSEN Referring Provider Assessment No assessment recorded. Plan of Treatment Reminders Order Date Submit Date Provider Last Modified By Organization Details Last Modified Time Details Appointments None record ed. Lab None record ed. Referral None record ed. Procedures None record ed. Surgeries None record ed. Imaging XR, foot 023 06/19/19 [email or web address] [facility], [address] [place] [address] [place], [address], 12:33:06 Medication Orders None record ed. Patient TargetsNo targets recorded. Patient InstructionsNo instructions recorded. Reason for Referral None Reported. Results Created Date Observation Date Name Description Value Unit Range Abnormal Flag Note LastModifiedBy Organization Detail LastModifiedTime 06/19/19 XR, foot No observ ation record ed. [email or web address] [facility] [address] [place] [address] [place], [address], 06/19/2022 14:25:48 Result Notes None recorded. Problems Name Problem SNOMED Code Status Onset Date Resolution Date Notes Provider Name and Address Organization Details Recorded Time Sprain of left foot 81596552087584118 Active 2022 Joe Amos MD [address] [place] [address],[facility] [address], [place], [address] [facility] & [place] 12:33:45 Problem Notes None recorded. Procedures Surgical History Date Name Laterality Status Provider Name and Address Organization Details Recorded Time 10/25/2021 completed Shea VASQUEZ [facility] & [place] 06/19/2022 14:26:02 10/25/2021 Date of Last Pap Smear completed Shea VASQUEZ [facility] & [place] 06/19/2022 14:26:02 Imaging Results None recorded. Procedure Notes None recorded. Medical Equipment None Reported. Allergies Allergen ID Allergen Name Allergen Category Reaction Reaction Severity Criticality Documentation Date Start Date Code Code System Note Provider Name and Address Organization Details Recorded Time 95860 penicilla mine medicatio n hives moderate Not available 06/19/2022 7975 RxNorm Shea [place], [facility] & [place] 14:25:57 Medications Name Sig Start Date Stop [...] Do You Have An Advance Directive? No [email or web address] Information not available 06/19/2022 Are You Blind Or Do You Have Difficulty Seeing? No [email or web address] Information not available 06/19/2022 What Was The Date Of Your Most Recent Tobacco Screening? 06/19/2022 [email or web address] Information not available 06/19/2022 Are You Passively Exposed To Smoke? No Information not available 06/19/2022 How Much Tobacco Do You Smoke? No Information not available 06/19/2022 How Many Years Have You Smoked Tobacco? 0 [email or web address] Information not available 06/19/2022 Sex: Female Functional Status Question Answer Note LastModified by Organizat ion Details LastModified Time Do you use any illicit or recreational drugs? No [email or web address] Information not available 06/19/2022 What is your level of alcohol consumption? Occasional [email or web address] Information not available 06/19/2022 Do you or have you ever used smokeless tobacco? 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 Occasional [email or web address] Information not available 06/19/2022 Mental Status Question Answer Note LastModified by Organization D etails LastModified Time Do you feel stressed (tense, restless, nervous, or anxious, or unable to sleep at night)? [id number] Information not available 06/19/2022 Family History Relationship Description Onset Age of this Age Resolved Age Notes LastModified by Organization Details LastModified Time Father No current problems or disability [email or web address] Not available 06/19 14:26:33 Mother No current problems or disability [email or web address] Not available 06/19 14:26:33 Medical History Condition [...] ICD10 Code Diagnosis IMO Codes Diagnosis Note [id number] Joe Amos MD [facility] [address] [place] [address] 06/19/2022 14:00:44 06/19/2022 14:30:56 Pain in left foot [id number] 02071 M79.672 Sprain of left foot 1183 050918 7962254 S93.602A Health Concerns Section Related Observation LastModified by Organization Detai ls LastModified Time None Recorded Concern Status LastModified by Organization Details LastModified Time None Recorded Advance Directives Directive N: Payers Insurance Date Sequence Insurance Name Policy Number Policy Miranda Covered Member ID Miranda Member ID Guarantor Name 09/06/2022 1 [place] [id number] Amee Oh [id number] Amee Oh 08/31/2022 2 [place] FFS/TRADITIO NAL Amee Oh [id number] Amee Oh Notes Date Note Type Note [...] E5 JS Joe Amos MD [address] [facility],[address], [place], [address], [facility] & [place] 06/20/2022 12:33:52 OBGyn Episode No OBEpisode recorded.
--- OUTSIDE RECORDS SUMMARY | 2025-03-02 09:53 | XMS_ITS | Data Portability ---
Author Organization [facility] Address [address] [place] [address] Assessment No assessment recorded. Plan of Treatment Reminders Order Date Submit Date Provider Last Modified By Organization Details Last Modified Time Details Appointments Hospital F/U 20 2024 11:00A M Kimi Puente APRN Not available Not available Not available Lab lipid panel, serum 2023 024 DORINDA [facility], [address], [address], [place], [address], 10/28/2023 11:09:02 CBC w/ auto diff 2023 024 DORINDA [facility], [address], [address], [place], [address], 10/28/2023 11:09:01 CMP, serum or plasma 2023 024 DORINDA [facility], [address], [address], [place], [address], 10/28/2023 11:09:02 TSH + free T4, serum 2023 024 DORINDA [facility], [address], [address], [place], [address], 10/28/2023 11:09:00 Referral None recorded. Procedures venipunct ure routine (PROC) 2023 024 [email or web address] Not available 11/03/2023 13:24:44 Surgeries None recorded. Imaging None recorded. Medication Orders bupropion HCl 75 mg tablet 2023 024 [facility], [address] [place], [address], 05/05/2023 15:31:46 Patient TargetsNo targets recorded. Patient Instructions Encounter Date Encounter Id Patient Instructions Last Modified By Organization Details Last Modified Time 10/26/2023 [id number] (MIRNA) ankle brachial index* - NO PA REQUIRED FOR CPT CODE 98434 per BCBS automated system ( no ref # was given) DORINDA Not available 01/01/2024 13:43:55 Reason for Referral None Reported. Results Created Date Observation Date Name Description Value Unit Range Abnormal Flag Note LastModifiedBy Organization Detail LastModifiedTime 10/27/1910/28/2023 TSH+F REE T4 TSH 3.870 uIU/m L 0.450- 4.500 Not Available [facility] ([facility]) [address] [place], [address], 10/28/2023 11:09:00 10/27/19 24 10/28/2023 TSH+F REE T4 T4,free(dire ct) 0.91 NG/dL 0.82-1 .77 Not Available [facility] ([facility]) [address] [place], [address], 10/28/2023 11:09:00 10/27/19 24 10/28/2023 CBC WITH DIFFE RENTI AL/PL ATELE T WBC 6.0 x10e3 /uL 3.4-10 .8 Not Available [facility] ([facility]) [address] [place], [address], 10/28/2023 11:09:01 10/27/19 24 10/28/2023 CBC WITH DIFFE RENTI AL/PL ATELE T RBC 4.83 x10e6 /uL 3.77-5 .28 Not Available [facility] ([facility]) [address] [place], [address], 10/28/2023 11:09:01 07/02/20 24 10/28/2023 CBC WITH DIFFE RENTI AL/PL ATELE T hemoglobin 14.3 g/dL 11.1-1 5.9 Not Available [facility] ([facility]) [address] [facility], [place], [address], 10/28/2023 11:09:01 10/27/19 24 10/28/2023 CBC WITH DIFFE RENTI AL/PL ATELE T hematocrit 42.3 % 34.0-4 6.6 Not Available [facility] ([facility]) [address] [facility], [place], [address], 10/28/2023 11:09:01 10/27/19 24 10/28/2023 CBC WITH DIFFE RENTI AL/PL ATELE T MCV 88 fL 79-97 Not Available [facility] ([facility]) [address] [facility], [place], [address], 10/28/2023 11:09:01 10/27/19 24 10/28/2023 CBC WITH DIFFE RENTI AL/PL ATELE T MCH 29.6 pg 26.6-3 3.0 Not Available [facility] ([facility]) [address] [facility], [place], [address], 10/28/2023 11:09:01 10/27/19 24 10/28/2023 CBC WITH DIFFE RENTI AL/PL ATELE T MCHC 33.8 g/dL 31.5-3 5.7 Not Available [facility] ([facility]) [address] [facility], [place], [address], 10/28/2023 11:09:01 10/27/19 24 10/28/2023 CBC WITH DIFFE RENTI AL/PL ATELE T RDW 12.6 % 11.7-1 5.4 Not Available [facility] ([facility]) [address] [place], [address], 10/28/2023 11:09:01 10/27/19 24 10/28/2023 CBC WITH DIFFE RENTI AL/PL ATELE T platelets 257 x10e3 /uL 150-45 0 Not Available [facility] ([facility]) [address] [facility], [place], [address], 10/28/2023 11:09:01 10/27/19 24 10/28/2023 CBC WITH DIFFE RENTI AL/PL ATELE T neutrophils 56 % not estab. Not Available [facility] ([facility]) [address] [facility], [place], [address], 10/28/2023 11:09:01 10/27/19 24 10/28/2023 CBC WITH DIFFE RENTI AL/PL ATELE T lymphs 31 % not estab. Not Available [facility] ([facility]) [address] [facility], [place], [address], 10/28/2023 11:09:01 10/27/19 24 10/28/2023 CBC WITH DIFFE RENTI AL/PL ATELE T monocytes 8 % not estab. Not Available [facility] ([facility]) [address] [facility], [place], [address], 10/28/2023 11:09:01 10/27/19 24 10/28/2023 CBC WITH DIFFE RENTI AL/PL ATELE T eos 4 % not estab. Not Available [facility] ([facility]) [address] [facility], [place], [address], 10/28/2023 11:09:01 10/27/19 24 10/28/2023 CBC WITH DIFFE RENTI AL/PL ATELE T basos 1 % not estab. Not Available [facility] ([facility]) [address] [facility], [place], [address], 10/28/2023 11:09:01 10/27/19 24 10/28/2023 CBC WITH DIFFE RENTI AL/PL ATELE T immature cells EXECUTIVE ADMINISTRATIVE ASST Not Available [facility] ([facility]) [address] [facility], [place], [address], 10/28/2023 11:09:01 10/27/19 24 10/28/2023 CBC WITH DIFFE RENTI AL/PL ATELE T neutrophils (absolute) 3.3 x10e3 /uL 1.4-7. 0 Not Available [facility] ([facility]) [address] [facility], [place], [address], 10/28/2023 11:09:01 10/27/19 24 10/28/2023 CBC WITH DIFFE RENTI AL/PL ATELE T lymphs (absolute) 1.9 x10e3 /uL 0.7-3. 1 Not Available [facility] ([facility]) [address] [facility], [place], [address], 10/28/2023 11:09:01 10/27/19 24 10/28/2023 CBC WITH DIFFE RENTI AL/PL ATELE T monocytes(ab solute) 0.5 x10e3 /uL 0.1-0. 9 Not Available [facility] ([facility]) [address] [facility], [place], [address], 10/28/2023 11:09:01 10/27/19 24 10/28/2023 CBC WITH DIFFE RENTI AL/PL ATELE T eos (absolute) 0.2 x10e3 /uL 0.0-0. 4 Not Available [facility] ([facility]) [address] [facility], [place], [address], 10/28/2023 11:09:01 10/27/19 24 10/28/2023 CBC WITH DIFFE RENTI AL/PL ATELE T baso (absolute) 0.0 x10e3 /uL 0.0-0. 2 Not Available [facility] ([facility]) [address] [facility], [place], [address], 10/28/2023 11:09:01 10/27/19 24 10/28/2023 CBC WITH DIFFE RENTI AL/PL ATELE T immature granulocytes 0 % not estab. Not Available [facility] ([facility]) [address] [facility], [place], [address], 10/28/2023 11:09:01 10/27/19 24 10/28/2023 CBC WITH DIFFE RENTI AL/PL ATELE T immature grans (abs) 0.0 x10e3 /uL 0.0-0. 1 Not Available [facility] ([facility]) [address] [facility], [place], [address], 10/28/2023 11:09:01 10/27/19 24 10/28/2023 CBC WITH DIFFE RENTI AL/PL ATELE T NRBC EXECUTIVE ADMINISTRATIVE ASST Not Available [facility] ([facility]) [address] [facility], [place], [address], 10/28/2023 11:09:01 10/27/19 24 10/28/2023 CBC WITH DIFFE RENTI AL/PL ATELE T hematology comments: EXECUTIVE ADMINISTRATIVE ASST Not Available [facility] ([facility]) [address] [facility], [place], [address], 10/28/2023 11:09:01 10/27/19 24 10/28/2023 COMP. METAB OLIC PANEL (14) glucose 83 mg/dL 70-99 Not Available [facility] ([facility]) [address] [facility], [place], [address], 10/28/2023 11:09:02 10/27/19 24 10/28/2023 COMP. METAB OLIC PANEL (14) BUN 10 mg/dL 6-24 Not Available [facility] ([facility] [place] [facility]) [address] [place], [address], 10/28/2023 11:09:02 10/27/19 24 10/28/2023 COMP. METAB OLIC PANEL (14) creatinine 0.94 mg/dL 0.57-1 .00 Not Available [facility] ([place] [facility]) [address] [place], [address], 10/28/2023 11:09:02 10/27/19 24 10/28/2023 COMP. METAB OLIC PANEL (14) eGFR 74 mL/mi n/1.7 3 >59 Not Available [facility] ([facility]) [address], [place], [address], 10/28/2023 11:09:02 10/27/19 24 10/28/2023 COMP. METAB OLIC PANEL (14) BUN/creatini ne ratio 11 9-23 Not Available [facility] ([facility]) [address] [facility], [place], [address], 10/28/2023 11:09:02 10/27/19 24 10/28/2023 COMP. METAB OLIC PANEL (14) sodium 142 mmol/ L 134-14 4 Not Available [facility] ([facility]) [address] [facility], [place], [address], 10/28/2023 11:09:02 10/27/19 24 10/28/2023 COMP. METAB OLIC PANEL (14) potassium 4.2 mmol/ L 3.5-5. 2 Not Available [facility] ([facility]) [address], [place], [address], 10/28/2023 11:09:02 10/27/19 24 10/28/2023 COMP. METAB OLIC PANEL (14) chloride 106 mmol/ L 96-106 Not Available [facility] ([facility]) [address] [facility], [place], [address], 10/28/2023 11:09:02 10/27/19 24 10/28/2023 COMP. METAB OLIC PANEL (14) carbon dioxide, total 25 mmol/ L 20-29 Not Available [facility] ([facility]) [address] [facility], [place], [address], 10/28/2023 11:09:02 10/27/19 24 10/28/2023 COMP. METAB OLIC PANEL (14) calcium 9.2 mg/dL 8.7-10 .2 Not Available [facility] ([facility]) [address], [place], [address], 10/28/2023 11:09:02 10/27/19 24 10/28/2023 COMP. METAB OLIC PANEL (14) protein, total 6.5 g/dL 6.0-8. 5 Not Available [facility] ([facility]) [address], [place], [address], 10/28/2023 11:09:02 10/27/19 24 10/28/2023 COMP. METAB OLIC PANEL (14) albumin 4.2 g/dL 3.9-4. 9 Not Available [facility] ([facility]) [address] [place], [address], 10/28/2023 11:09:02 10/27/19 24 10/28/2023 COMP. METAB OLIC PANEL (14) globulin, total 2.3 g/dL 1.5-4. 5 Not Available [facility] ([facility]) [address] [place], [address], 10/28/2023 11:09:02 10/27/19 24 10/28/2023 COMP. METAB OLIC PANEL (14) bilirubin, total 0.4 mg/dL 0.0-1. 2 Not Available [facility] ([facility]) [address] [place], [address], 10/28/2023 11:09:02 10/27/19 24 10/28/2023 COMP. METAB OLIC PANEL (14) alkaline phosphatase 64 IU/L 44-121 Not Available [facility] ([facility]) [address], [place], [address], 10/28/2023 11:09:02 10/27/19 24 10/28/2023 COMP. METAB OLIC PANEL (14) AST (SGOT) 14 IU/L 0-40 Not Available [facility] ([facility]) [address] [place], [address], 10/28/2023 11:09:02 10/27/19 24 10/28/2023 COMP. METAB OLIC PANEL (14) ALT (SGPT) 11 IU/L 0-32 Not Available [facility] ([facility]) [address] [place], [address], 10/28/2023 11:09:02 10/27/19 24 10/28/2023 LIPID PANEL cholesterol, total 211 mg/dL 100-19 9 above high normal Not Available [facility] ([facility]) [address] [place], [address], 10/28/2023 11:09:02 10/27/19 24 10/28/2023 LIPID PANEL triglyceride s 109 mg/dL 0-149 Not Available [facility] ([facility]) [address] [place], [address], 10/28/2023 11:09:02 10/27/19 24 10/28/2023 LIPID PANEL HDL cholesterol 50 mg/dL >39 Not Available [facility] ([facility]) [address] [place], [address], 10/28/2023 11:09:02 10/27/19 24 10/28/2023 LIPID PANEL VLDL cholesterol elisabet 20 mg/dL 5-40 Not Available [facility] ([facility]) [address] [place], [address], 10/28/2023 11:09:02 10/27/19 24 10/28/2023 LIPID PANEL LDL chol calc (nih) 141 mg/dL 0-99 above high normal Not Available [facility] ([facility]) [address] [place], [address], 10/28/2023 11:09:02 10/27/19 24 10/28/2023 LIPID PANEL LDL calc comment: EXECUTIVE ADMINISTRATIVE ASST Not Available [facility] ([facility]) [address], [place], [address], 10/28/2023 11:09:02 01/01/20 24 01/01/2024 (MIRNA) ankle brach ial index * No observ ation record ed. [facility] [address], [place], [address], 01/04/2024 12:39:14 02/28/2002/27/2025 CT, abdom en + pelvi s, w/ contr ast No observ ation record ed. [facility] [address], [place], [address], 02/27/2025 13:56:13 02/28/20 25 02/27/2025 US, casie russell r No observ ation record ed. [facility] [address], [place], [address], 02/27/2025 13:56:28 02/29/2002/27/2025 elect malaika rubio am No observ [facility]ion [facility] [address], [place], [address], 02/28/2025 09:48:56 Result Notes None recorded. Problems No Known Problems Procedures Surgical History Date Name Laterality Status Provider Name and Address Organization Details Recorded Time section completed Yane García [place] - [facility] 05/05/2023 14:49:58 Imaging Results None recorded. Procedure Notes None recorded. Medical Equipment None Reported. Allergies Allergen ID Allergen Name Allergen Category Reaction Reaction Severity Criticality Documentation Date Start Date Code Code System Note Provider Name and Address Organization Details Recorded Time 98654 Product containin g penicilli n (product) medicatio n hives Not available Not available 02/01/20162014 92180 3756 SNOMED React ion: hives ; Not Available [...] Disconti nued on: 08/21/19 16 10:20AM; User: Oelna Barragan on: 01/18/20 16;Indic ation: Iron Deficien cy Anemia - (04.2809 00) Not Available Not Available Not Available 27 [...] Updated DateTime 4 157.48 cm 25.9 kg/m2 39803.6 2 g 97.5 [degF] 94 /min 98 % 98 % 18 /min 0 118/70 mm[Hg] Yane Raquel [place] - [facility] 14:38:44 Date Recorded Body height Body mass index (BMI) Body weight Body temperature Heart rate Oxygen saturation Oxygen saturation in Arterial blood by Pulse oximetry Respiratory rate Pain severity - 0-10 verbal numeric rating [Score] - Reported Systolic And Diastolic Provider Name and Address Organization Details Last Updated DateTime 4 157.48 cm 24.7 kg/m2 70668.9 7 g 97.9 [degF] 80 /min 98 % 98 % 18 /min 0 132/78 mm[Hg] Yane Raquel [place] - [facility] 4 15:32:30 Date Recorded Body height Provider Name an d Address Organization Details Last Updated DateTime 10/27/2023 157.48 cm Yane Raquel [place] - [facility] 0 10/27/2023 10:02:51 Social History Question Answer Notes LastModified by Organizat ion Details LastModified Time Tobacco Smoking Status Never Smoker Yane Raquel [place], [place] - [facility] 05/05/2023 14:48:21 Do You [...] Do You Have A Medical Power Of Online Marketing Specialist? No Information not available 05/05/2023 What Was [...] 14:39:14 Tdap 6 completed Yane García [place], [place] - [facility] 05/05/2023 14:39:14 COVID-19, mRNA, LNP-S, PF, 100 mcg/0.5mL dose or 50 mcg/0.25mL dose 1 completed Yane García [place], [place] - [facility] 05/05/2023 14:39:14 COVID-19, mRNA, LNP-S, PF, 100 mcg/0.5mL dose or 50 mcg/0.25mL dose 1 completed Yane García [place], [place] - [facility] 05/05/2023 14:39:14 Past Encounters Encounter ID Performer Location Encounter Start Date Encounter Closed Date Diagnosis/Indication Diagnosis SNOMED-CT Code Diagnosis ICD10 Code Diagnosis IMO Codes Diagnosis Note [id number] Kimi Puente APRN [address] [address] 05/05/2023 14:25:33 05/05/2023 16:43:49 Anxiety 42532593 F41.9 [id number] Kimi Puente APRN [address] [address] 10/26/2023 15:17:34 10/26/2023 16:15:11 Peripheral vascular disease 681490714 I73.9 labs,abiaf ter will refer to cardiology if needed Dependent edema 95974022 4 R60.0 [id number] Kimi Puente APRN [address] [address] 10/27/2023 09:58:12 10/27/2023 10:02:50 Peripheral vascular disease 801616764 I73.9 labs,abiaf ter will refer to cardiology if needed Health Concerns Section Related Observation LastModified by Organization Detai ls LastModified Time None Recorded Concern Status LastModified by Organization Details LastModified Time None Recorded Advance Directives Directive N: Payers Insurance Date Sequence Insurance Name Policy Number Policy Miranda Covered Member ID Miranda Member ID Guarantor Name 12/22/2023 [place] [id number] Amee Oh [id number] Amee Oh 12/22/2023 1 [id number] Amee Oh [id number] Amee Oh Notes Date Note Type Note Provider Name and Address Organization Details Recorded Time 05/05/2023 text/html 47 yr old female presents to establish care and she wants to get put back on her wellbutrin. pt states she done well on med and wants to restart med Kimi Puente APRN [address], [place], [address], [place] - [facility] 05/05/2023 15:32:32 10/26/2023 text/html [...] father and 2 siblings has had AAA Kimi Puente, HOUSE MANAGER [address], [place], [address], [place] - [facility] 10/26/2023 16:01:06 10/27/2023 text/html 48 yr old female presents for lab work. [place]ane [place], [place] - [facility] 10/27/2023 10:06:35 OBGyn Episode No OBEpisode recorded.
[2025-03-02] MEDS: KETOROLAC 30MG/ML VIAL 30 MG IV (10:01)
[2025-03-02] MEDS: ONDANSETRON 4MG/2ML VIAL 4 MG IV (10:01)
[2025-03-02 10:03] LABS: Microscopic, Urine URINE MICROSCOPIC (MICROSCOPIC)
[2025-03-02 10:06] LABS: Hematocrit 40.8 % (37.0-47.0); Hemoglobin 13.9 g/dL (12.2-16.2); Immature Granulocytes % 0.3 %; Mean Corpuscular HGB Conc 34.1 g/dL (31.8-35.4); Mean Corpuscular Hemoglobin 29.6 pg (27.0-31.2); Mean Corpuscular Volume 87.0 fl (81-99); Nucleated Red Blood Cells % 0 %; Platelet Count 228 K/mm3 (142-424); Red Blood Count 4.69 M/mm3 (4.20-5.40); Red Cell Distribution Width-SD 39.8 fL; White Blood Count 3.2 K/mm3 (4.8-10.8)
[2025-03-02 10:11] LABS: Albumin Level 5.0 g/dl (3.5-5.0); Chloride 101 mmol/L (98-107); Potassium 4.3 mmoL/L (3.5-5.1); Sodium 141 mmol/L (136-145)
[2025-03-02 10:14] LABS: Albumin/Globulin Ratio 2.2 (1.1-1.8); Alkaline Phosphatase 144 U/L (38-126); Anion Gap 10.3 mEq/L (5-15); Bilirubin,Total 1.8 mg/dl (0.2-1.3); Blood Urea Nitrogen 8 mg/dl (7-17); Calcium 8.9 mg/dl (8.4-10.2); Carbon Dioxide 34 mmol/L (22.0-30.0); Creatinine Clearance Estimated 83 mL/min (50-200); Creatinine,Serum 0.80 mg/dl (0.52-1.04); Estimated Glomerular Filt Rate 76 ml/min (>60); GFR (African American) 92 ML/MIN (>60); Globulin 2.3 g/dL (1.3-3.2); Glucose 96 mg/dl (74-100); Lipase 81 U/L (23-300); Total Protein,Serum 7.3 g/dl (6.3-8.2)
[2025-03-02] MEDS: SODIUM CHLORIDE 0.9% 10ML SYR (RAD ONLY) 10 ML IV (10:14)
[2025-03-02] MEDS: IOPAMIDOL-370 (76%);100ML BOTTLE 75 ML IV (10:14)
[2025-03-02 10:15] LABS: INR 0.96 (0.9-1.1); Prothrombin Time 10.7 seconds (10.1-12.5)
[2025-03-02 10:18] LABS: Color,Urine BROWN (Yellow); Glucose,Urine (UA) Negative (Negative); Ketones,Urine Negative (Negative); Leukocyte Esterase,Urine Negative (Negative); PH,Urine 7.5 (5.0-8.5); Protein,Urine 1+ (Negative); Specific Gravity, Urine 1.020 (1.005-1.030); Urobilinogen,Urine 2.0 EU/dl (0.2)
[2025-03-02 10:21] LABS: Alanine Aminotransferase 827 U/L (12-78)
[2025-03-02 10:29] LABS: Aspartate Amino Transferase 1500 U/L (14-36)
[2025-03-02 10:40] LABS: Bilirubin,Urine 1+ (Negative)
[2025-03-02 10:45] LABS: Amorphous Sediment,Urine 1+ /lpf; Bacteria,Urine 1+ /lpf
[2025-03-02] MEDS: CEFEPIME HCL 2 GM in 0.9 % SODIUM CHLORIDE 100 ML IV (10:58)
[2025-03-02] MEDS: MORPHINE 2MG/ML SYRINGE 2 MG IV (11:14)
[2025-03-02] MEDS: METRONIDAZ/SOD CHL 500 MG/100 ML PIGGYBACK 100 MG IV (11:40)
--- NOTE | 2025-03-02 11:44 | PC.NURSE ---
DR DOWELL PAGED
--- NOTE | 2025-03-02 11:50 | PC.NURSE ---
DR LORA SPEAKING WITH DR DOWELL
--- NOTE | 2025-03-02 11:56 | PC.NURSE ---
paged at this time
--- NOTE | 2025-03-02 12:25 | PC.NURSE ---
WINDOW CUTTER NOTIFIED OF ADMISSION
--- NOTE | 2025-03-02 12:32 | P.CONS_ITS ---
History of Present Illness *Admission Date: 03/02/25 *Reason for visit:: Abdominal pain *History of present illness: Patient is a 49-year-old female whom I had seen as an outpatient in November of this year as a self-referral due to history of apparent biliary pancreatitis at which time she had been admitted in [facility] and was diagnosed with biliary pancreatitis. At that time she had undergone ultrasound, CT scan, and MRCP. She states that she did not require ERCP at that time although discussion was being held regarding this and also consideration was being held regarding cholecystectomy during that index admission however the patient elected to be discharged and follow-up as an outpatient. When I saw her in the office in November recommendations were to proceed with outpatient cholecystectomy due to her prior history of apparent biliary pancreatitis. Patient was hoping to wait until beginning of the year for cholecystectomy apparently. However she has had some episodes of acute pain over the past couple weeks which were usually self- limited however in the evening of 02/26/2025 she developed recurrent pain similar to previous symptoms located in the right upper quadrant and presented to the emergency department where CT scan revealed findings consistent with hydropic gallbladder with surrounding edema and fluid. She had normal white blood cell count. Liver function test essentially normal. Lipase was essentially normal at that time. During that hospitalization she was taken to the operating room and underwent laparoscopic cholecystectomy in the afternoon of 02/27/25 at which time she was found to have acutely inflamed edematous distended gallbladder with Pericholecystic edema and fluid with numerous small granule stones within the gallbladder and including the proximal cystic duct which were able to be milked back into the gallbladder body prior to clipping the cystic duct. Intraoperative cholangiogram was not performed due to the inflammation and potential for catastrophic common bile duct injury if attempted. It was explained to the patient's family and patient postoperatively that there is the possibility of common duct stone. Patient remained in inpatient overnight and was feeling quite well the following morning at which time laboratory assessment was within reasonable limits and she was discharged home. Overnight in the evening of 03/01/2025 to 03/02/2025 she developed onset of epigastric pain. She had associated nausea with vomiting. She presented back to the emergency department at which time laboratory evaluation reveals AST of 1500, ALT 827, alkaline phosphatase 144, bilirubin 1.8. Surgery was consulted. . [facility] Disclaimer: The information contained in this section may have been updated after the patient was seen, as this information can be updated by other users. Medical History (Updated 03/02/25 @ 12:11 by Alessandra Whitman) Urinary tract infection Surgical History (Updated 02/27/25 @ 16:28 by Jenn Cruz APRN) History of Social History (Updated 02/27/25 @ 13:20 by Cesar Milton CRNA) Smoking Status: Current every day smoker alcohol intake: never substance use type: denies use current occupational status: employed Travel in the last 8 weeks?: Inside the [place] Have you lived/traveled outside US in past 30 days?: No Contact w/someone who lives/traveled outside US past 30 days?: No Exposure to someone with infectious disease in past 14 days?: No Do you have a fever (greater than 100.4 F or 38 C)?: No Have you tested positive for COVID-19?: No Exposed to someone with COVID-19 in past 14 days?: No Do you have a sore throat?: No Do you have a cough?: No Do you have any weakness?: No Do you have any diarrhea?: No Are you experiencing any unusual bleeding?: No Do you have any muscle aches/pain?: No Do you have any abdominal pain?: No Are you experiencing loss of taste or smell?: No Meds Home Medications and Allergies Home Medications ?Medication ?Instructions ?Recorded ?Confirmed ?Type bupropion HCl 75 mg tablet 75 mg PO BID 02/27/2503/02 History hydrocodone 5 mg-acetaminophen 325 1 tab PO Q4HP PRN M oderate To 02/28/25 03/02/25 Rx mg tablet Severe Pain (4-10) 3 days #1 5 tabs nitrofurantoin 100 mg PO Q12H 3 days #6 cap s 02/28/25 03/02/25 Rx monohydrate/macrocrystals 100 mg capsule (Macrobid) New Prescriptions to Start Prescriptions: Allergies Allergy/AdvReac Type Severity Reaction Status Date / Time Penicillins Allergy Verified 12/06/24 09:49 Exam (Inpt) Vital signs and Labs for Last 24 Hours: Temp Pulse Resp BP Pulse Ox O2 Del Method 98.2 F 63 20 142/82 H 96 Room Air 03/02/25 09:35 03/02/25 12:00 03/02/25 09:35 03/02/25 12:00 03/02/25 12:00 03/02/25 09:35 Laboratory Results - last 24 hr 03/02/25 09:38: Urine Color Brown, Urine Appearance Cloudy, Urine pH 7.5, Ur Specific [place] 1.020, Urine Protein 1+ A, Urine Glucose (UA) Negative, Urine Ketones Negative, Urine Blood Negative, Urine Nitrate Negative, Urine Bilirubin 1+ A, Urine Urobilinogen 2.0, Ur Leukocyte Esterase Negative, Urine RBC None, Urine WBC None, Ur Squamous Epith Cells 3-5, Amorphous Sediment 1+, Urine Bacteria 1+, Fine Granular Casts Occasional 03/02/25 09:53: WBC 3.2 L D, RBC 4.69, Hgb 13.9, Hct 40.8, MCV 87.0, MCH 29.6, MCHC 34.1, RDW 12.5, Plt Count 228, MPV 10.7 H, Neut % (Auto) 56.3, Lymph % (Auto) 25.6, [place] % (Auto) 14.7 H, Eos % (Auto) 2.5, Baso % (Auto) 0.6, Neut # (Auto) 1.8, Lymph # (Auto) 0.8, [place] # (Auto) 0.5, Eos # (Auto) 0.1, Baso # (Auto) 0.0, PT 10.7, INR 0.96, Sodium 141, Potassium 4.3, Chloride 101, Carbon Dioxide 34 H, Anion Gap 10.3, BUN 8 D, Creatinine 0.80, Estimated Creat Clear 83, Estimated GFR 76, Est GFR ( Amer) 92, Glucose 96, Lactate 1.0, Calcium 8.9, Total Bilirubin 1.8 H, AST 1500 H* D, ALT 827 H*, Alkaline Phosphatase 144 H, Total Protein 7.3, Albumin 5.0, Globulin 2.3, A lbumin/Globulin Ratio 2.2 H, Lipase 81 I & O for Labs for Last 24 Hours: Intake & Output 02/28/25 03/01/25 03/02/25 03/03/25 11:59 11:59 11:59 11:59 Intake Total 100 / 100 Balance 100 / 100 Weight 140 lb Results Labs 03/02/25 09:53 03/02/25 09:53 Labs: Laboratory Results - last 24 hr 03/02/25 09:38: Urine Color Brown, Urine Appearance Cloudy, Urine pH 7.5, Ur Specific [place] 1.020, Urine Protein 1+ A, Urine Glucose (UA) Negative, Urine Ketones Negative, Urine Blood Negative, Urine Nitrate Negative, Urine Bilirubin 1+ A, Urine Urobilinogen 2.0, Ur Leukocyte Esterase Negative, Urine RBC None, Urine WBC None, Ur Squamous Epith Cells 3-5, Amorphous Sediment 1+, Urine Bacteria 1+, Fine Granular Casts Occasional 03/02/25 09:53: WBC 3.2 L D, RBC 4.69, Hgb 13.9, Hct 40.8, MCV 87.0, MCH 29.6, MCHC 34.1, RDW 12.5, Plt Count 228, MPV 10.7 H, Neut % (Auto) 56.3, Lymph % (Auto) 25.6, [place] % (Auto) 14.7 H, Eos % (Auto) 2.5, Baso % (Auto) 0.6, Neut # (Auto) 1.8, Lymph # (Auto) 0.8, [place] # (Auto) 0.5, Eos # (Auto) 0.1, Baso # (Auto) 0.0, PT 10.7, INR 0.96, Sodium 141, Potassium 4.3, Chloride 101, Carbon Dioxide 34 H, Anion Gap 10.3, BUN 8 D, Creatinine 0.80, Estimated Creat Clear 83, Estimated GFR 76, Est GFR ( Amer) 92, Glucose 96, Lactate 1.0, Calcium 8.9, Total Bilirubin 1.8 H, AST 1500 H* D, ALT 827 H*, Alkaline Phosphatase 144 H, Total Protein 7.3, Albumin 5.0, Globulin 2.3, A lbumin/Globulin Ratio 2.2 H, Lipase 81 Assessment and Plan *Assessment and plan (1) Choledocholithiasis: Status: Acute Category: Medical Code(s): K80.50 - Calculus of bile duct without cholangitis or cholecystitis without obstruction Plan Patient has clinical history and findings consistent with presumed common bile duct stone. Doubt biliary ductal injury. Case has been discussed with gastroenterology. Plan will be for ERCP. In the interim plan for admission.
--- NOTE | 2025-03-02 12:41 | HMH.PHAINT1 ---
Pharmacy Intervention Comments: MEDICATION RECONCILIATION COMPLETED ON PATIENT USING EXTERNAL FILL HISTORY FROM PHARMACY AND DISCHARGE SUMMARY FROM PREVIOUS ADMISSION. -ESTHER RAMIREZ, CORINAD
--- NOTE | 2025-03-02 14:53 | EXP.ANES.CKL ---
[facility] Disclaimer: The information contained in this section may have been updated after the patient was seen, as this information can be updated by other users. Medical History Urinary tract infection Surgical History History of Family History (Updated 03/02/25 @ 14:08 by Amee Willoughby, RN) Other Cardiac disease Family history of cancer Melanoma Renal disease Social History (Updated 03/02/25 @ 14:08 by Amee Willoughby, RN) Smoking Status: Current every day smoker alcohol intake: never substance use type: denies use current occupational status: employed Travel in the last 8 weeks?: Inside the [place] Have you lived/traveled outside US in past 30 days?: No Contact w/someone who lives/traveled outside US past 30 days?: No Exposure to someone with infectious disease in past 14 days?: No Do you have a fever (greater than 100.4 F or 38 C)?: No Have you tested positive for COVID-19?: No Exposed to someone with COVID-19 in past 14 days?: No Do you have a sore throat?: No Do you have a cough?: No Do you have any weakness?: No Do you have any diarrhea?: No Are you experiencing any unusual bleeding?: No Do you have any muscle aches/pain?: No Do you have any abdominal pain?: No Are you experiencing loss of taste or smell?: No [facility] Anesthesia Checklist Patient Identification Patient Identification: Arm Band and Verbal (Name & ) Structural Data Admitted From: Home Planned Operative Procedure/s: ERCP Consent for Planned Operative Procedure(s) Verified: Yes Verified Documents: Surgical Consent NPO Status Verified Time NPO: 00:00 Chart Verification Results Verified: CBC and BMP Additional verifications Anesthesia Reactions: No Airway Assessment Mallampati Score:: Class II C-Spine Mobility Assessed: Yes TMJ Mobility Assessed: Yes Dentition: Good Dentition Neurological Assessment Level of Consciousness: Awake, Alert and Appropriate Hx Seizures: No Numbness or tingling in extremities: No Anesthesia Plan Anesthesia Risk discussed: Yes Anesthesia Plan: Verified ASA Class: II Anesthesia Type: General
[2025-03-02] MEDS: LACTATED RINGERS 1000ML 1,000 ML 50 ML IV (15:03)
--- NOTE | 2025-03-02 16:08 | P.HP_ITS ---
History of Present Illness *Admission Date: 03/02/25 *History of present illness: Amee Oh is a 49-year-old female with a medical history significant for anxiety/depression who presented with progressive abdominal pain, nausea/vomiting since last night. Patient had a cholecystectomy on 02/27/2025, and did well postoperatively. She denies fever/chills, but does states she is has a history of gallstone pancreatitis in the past. Workup in the ED significant for WBC 3.2, total bilirubin 1.8, AST/ALT 15 100/827, ALP 144 CT abdomen/pelvis shows minimal intrahepatic biliary ductal dilatation, new ground glass opacities in bilateral lobes. She was given cefepime, Flagyl in the ED. Given these findings, ED reached out to Dr. Sher with GI who recommended ERCP today. I also excepted patient for further evaluation and management. From GI note: Patient is a 49-year-old female whom I had seen as an outpatient in November of this year as a self-referral due to history of apparent biliary pancreatitis at which time she had been admitted in [facility] and was diagnosed with biliary pancreatitis. At that time she had undergone ultrasound, CT scan, and MRCP. She states that she did not require ERCP at that time although discussion was being held regarding this and also consideration was being held regarding cholecystectomy during that index admission however the patient elected to be discharged and follow-up as an outpatient. When I saw her in the office in November recommendations were to proceed with outpatient cholecystectomy due to her prior history of apparent biliary pancreatitis. Patient was hoping to wait until beginning of the year for cholecystectomy apparently. However she has had some episodes of acute pain over the past couple weeks which were usually self- limited however in the evening of 02/26/2025 she developed recurrent pain similar to previous symptoms located in the right upper quadrant and presented to the emergency department where CT scan revealed findings consistent with hydropic gallbladder with surrounding edema and fluid. She had normal white blood cell count. Liver function test essentially normal. Lipase was essentially normal at that time. During that hospitalization she was taken to the operating room and underwent laparoscopic cholecystectomy in the afternoon of 02/27/25 at which time she was found to have acutely inflamed edematous distended gallbladder with Pericholecystic edema and fluid with numerous small granule stones within the gallbladder and including the proximal cystic duct which were able to be milked back into the gallbladder body prior to clipping the cystic duct. Intraoperative cholangiogram was not performed due to the inflammation and potential for catastrophic common bile duct injury if attempted. It was explained to the patient's family and patient postoperatively that there is the possibility of common duct stone. Patient remained in inpatient overnight and was feeling quite well the following morning at which time laboratory assessment was within reasonable limits and she was discharged home. Overnight in the evening of 03/01/2025 to 03/02/2025 she developed onset of epigastric pain. She had associated nausea with vomiting. She presented back to the emergency department at which time laboratory evaluation reveals AST of 1500, ALT 827, alkaline phosphatase 144, bilirubin 1.8. Surgery was consulted. . [facility] Disclaimer: The information contained in this section may have been updated after the patient was seen, as this information can be updated by other users. Medical History (Updated 03/02/25 @ 16:19 by Juan Manuel Sher II, MD) Urinary tract infection Surgical History History of Family History (Updated 03/02/25 @ 14:08 by Amee Willoughby RN) Other Cardiac disease Family history of cancer Melanoma Renal disease Social History (Updated 03/02/25 @ 14:08 by Amee Willoughby RN) Smoking Status: Current every day smoker alcohol intake: never substance use type: denies use current occupational status: employed Travel in the last 8 weeks?: Inside the [place] Have you lived/traveled outside US in past 30 days?: No Contact w/someone who lives/traveled outside US past 30 days?: No Exposure to someone with infectious disease in past 14 days?: No Do you have a fever (greater than 100.4 F or 38 C)?: No Have you tested positive for COVID-19?: No Exposed to someone with COVID-19 in past 14 days?: No Do you have a sore throat?: No Do you have a cough?: No Do you have any weakness?: No Do you have any diarrhea?: No Are you experiencing any unusual bleeding?: No Do you have any muscle aches/pain?: No Do you have any abdominal pain?: No Are you experiencing loss of taste or smell?: No Other Medical History Have you received the Flu Vaccine for this season: No Have you received the Pneumonia Vaccine: No Meds Home Medications and Allergies Home Medications ?Medication ?Instructions ?Recorded ?Confirmed ?Type bupropion HCl 75 mg tablet 75 mg PO BID 02/27/2503/02 History hydrocodone 5 mg-acetaminophen 325 1 tab PO Q4HP PRN M oderate To 02/28/25 03/02/25 Rx mg tablet Severe Pain (4-10) 3 days #1 5 tabs nitrofurantoin 100 mg PO Q12H 3 days #6 cap s 02/28/25 03/02/25 Rx monohydrate/macrocrystals 100 mg capsule (Macrobid) New Prescriptions to Start Prescriptions: Allergies Allergy/AdvReac Type Severity Reaction Status Date / Time Penicillins Allergy Hives Verified 03/02/25 12:48 Exam Data for Last 24 hours Vital signs and Labs for Last 24 Hours: Temp Pulse Resp BP Pulse Ox O2 Del Method 97.0 F L 65 18 125/68 98 Room Air 03/02/25 15:04 03/02/25 15:04 03/02/25 15:04 03/02/25 15:04 03/02/25 15:04 03/02/25 15:04 Laboratory Results - last 24 hr 03/02/25 09:38: Urine Color Brown, Urine Appearance Cloudy, Urine pH 7.5, Ur Specific [place] 1.020, Urine Protein 1+ A, Urine Glucose (UA) Negative, Urine Ketones Negative, Urine Blood Negative, Urine Nitrate Negative, Urine Bilirubin 1+ A, Urine Urobilinogen 2.0, Ur Leukocyte Esterase Negative, Urine RBC None, Urine WBC None, Ur Squamous Epith Cells 3-5, Amorphous Sediment 1+, Urine Bacteria 1+, Fine Granular Casts Occasional 03/02/25 09:53: WBC 3.2 L D, RBC 4.69, Hgb 13.9, Hct 40.8, MCV 87.0, MCH 29.6, MCHC 34.1, RDW 12.5, Plt Count 228, MPV 10.7 H, Neut % (Auto) 56.3, Lymph % (Auto) 25.6, [place] % (Auto) 14.7 H, Eos % (Auto) 2.5, Baso % (Auto) 0.6, Neut # (Auto) 1.8, Lymph # (Auto) 0.8, [place] # (Auto) 0.5, Eos # (Auto) 0.1, Baso # (Auto) 0.0, PT 10.7, INR 0.96, Sodium 141, Potassium 4.3, Chloride 101, Carbon Dioxide 34 H, Anion Gap 10.3, BUN 8 D, Creatinine 0.80, Estimated Creat Clear 83, Estimated GFR 76, Est GFR ( Amer) 92, Glucose 96, Lactate 1.0, Ca lcium 8.9, Total Bilirubin 1.8 H, AST 1500 H* D, ALT 827 H*, Alkaline Phosphatase 144 H, Total Protein 7.3, Albumin 5.0, Globulin 2.3, Albumin/Globulin Ratio 2.2 H, Lipase 81 I & O for Last 24 hours: Intake & Output 02/27/25 02/28/25 03/01/25 03/02/25 23:59 23:59 23:59 23:59 Intake Total 200 / 200 Output Total 0 / 0 Balance 200 / 200 Weight 65.828 kg Constitutional Constitutional: no acute distress *Routine HEENT Exam Head: Present normocephalic Eye: Present EOMI and PERRL ENT: Present mucous membranes moist *Routine Neck Exam Neck: Present supple; Absent lymphadenopathy *Routine Respiratory Exam Respiratory: Present CTA bilaterally *Routine Cardiovascular Exam Cardiovascular: Present RRR *Routine Abdominal Exam Abdominal: Present soft and normoactive bowel sounds; Absent tenderness *Routine Rectal Exam Rectal:: deferred *Routine Genitalia Exam Genitalia:: deferred *Routine Extremities Exam Extremities: Absent cyanosis, clubbing or edema *Routine Skin Exam Skin: Present warm; Absent rash *Routine Neurological Exam Neurological: Present alert and oriented X3 Assessment and Plan *Assessment and plan (1) Choledocholithiasis: Status: Acute Category: Medical Code(s): K80.50 - Calculus of bile duct without cholangitis or cholecystitis without obstruction Plan Amee Oh is a 49-year-old female with a medical history significant for anxiety/depression who presented with progressive abdominal pain, nausea/vomiting since last night. Patient had a cholecystectomy on 02/27/2025, and did well postoperatively. She denies fever/chills, but does states she is has a history of gallstone pancreatitis in the past. Workup in the ED significant for WBC 3.2, total bilirubin 1.8, AST/ALT 15 100/827, ALP 144 CT abdomen/pelvis shows minimal intrahepatic biliary ductal dilatation, new ground glass opacities in bilateral lobes. She was given cefepime, Flagyl in the ED. Given these findings, ED reached out to Dr. Sher with GI who recommended ERCP today. I also excepted patient for further evaluation and management. #Abdominal pain #Choledocholithiasis #Transaminitis #Recent cholecystectomy ? GI consulted, s/p ERCP revealing 2 small impacted bile duct stones s/p biliary sphincterotomy and extraction. Patient tolerated procedure well, abdominal pain improved. ? No cholangitis noted, WBC 3.2 but no signs of sepsis. ? Clear liquid diet tonight. ? Will monitor overnight, follow-up on morning CMP. Likely discharge in the morning if stable. #Aspiration pneumonia ? Noted on CT abdomen/pelvis, WBC 3.2. ? Started cefdinir 300 mg twice daily. #Anxiety/depression ? Continue home bupropion 75 mg twice daily. Full code DVT prophylaxis: Lovenox 40 mg Home medications: Restarted.
--- NOTE | 2025-03-02 16:14 | EXP.HP ---
History of Present Illness *Admission Date: 03/02/25 *History of present illness: Mrs. Oh is a 49-year-old female who is here for diagnostic/therapeutic ERCP. The patient did have biliary pancreatitis and was admitted in [facility] and diagnosed with gallstones. She had ultrasound, CAT scan and MRCP. There was discussion of ERCP at that time. The patient returned home and was seen by Ishan Yuen MD and the patient Alicia presented on February 26, 2025 with recurrent pain located in the right upper quadrant and presented to the emergency department. The CAT scan showed a hydropic gallbladder with surrounding edema and fluid. The patient had laparoscopic cholecystectomy on 02/27 and was found to have an acutely inflamed edematous distended gallbladder with Roger cholecystic edema and numerous small granule stones within the gallbladder and cystic duct. These were milked back into the gallbladder and the cystic duct was then clipped. The patient did well postoperatively but then again had recurrent severe epigastric abdominal pain radiating into the back with intense nausea and 1 episode of vomiting this morning. She came to the ED and labs showed AST 1500, ALT 827, alkaline phosphatase 144 and total bilirubin 1.8. Her lipase was 81. There is high suspicion for choledocholithiasis. CT scans today showed minimal intrahepatic biliary ductal dilation which was unchanged from prior exam. The examination is deemed medically necessary for diagnostic/therapeutic ERCP. The patient has been seen, interviewed and examined prior to the procedure by both myself and the anesthesia provider. [facility] Disclaimer: The information contained in this section may have been updated after the patient was seen, as this information can be updated by other users. Medical History (Updated 03/02/25 @ 16:19 by Juan Manuel Sher II, MD) Urinary tract infection Surgical History History of Family History (Updated 03/02/25 @ 14:08 by Amee Willoughby RN) Other Cardiac disease Family history of cancer Melanoma Renal disease Social History (Updated 03/02/25 @ 14:08 by Amee Willoughby RN) Smoking Status: Current every day smoker alcohol intake: never substance use type: denies use current occupational status: employed Travel in the last 8 weeks?: Inside the [place] Have you lived/traveled outside US in past 30 days?: No Contact w/someone who lives/traveled outside US past 30 days?: No Exposure to someone with infectious disease in past 14 days?: No Do you have a fever (greater than 100.4 F or 38 C)?: No Have you tested positive for COVID-19?: No Exposed to someone with COVID-19 in past 14 days?: No Do you have a sore throat?: No Do you have a cough?: No Do you have any weakness?: No Do you have any diarrhea?: No Are you experiencing any unusual bleeding?: No Do you have any muscle aches/pain?: No Do you have any abdominal pain?: No Are you experiencing loss of taste or smell?: No Other Medical History Have you received the Flu Vaccine for this season: No Have you received the Pneumonia Vaccine: No Review of Systems Review of Systems Review of systems (narrative): Negative *Cardiovascular Comments: Negative *Gastrointestinal Comments: Negative *Genitourinary Comments: Negative *Musculoskeletal Comments: Negative *Neurologic Comments: Negative Meds Home Medications and Allergies Home Medications ?Medication ?Instructions ?Recorded ?Confirmed ?Type bupropion HCl 75 mg tablet 75 mg PO BID 02/27/25 03/02/25 History hydrocodone 5 mg-acetaminophen 325 1 tab PO Q4HP PRN Moderate To 02/28/25 03/02/25 Rx mg tablet Severe Pain (4-10) 3 days #15 tabs nitrofurantoin 100 mg PO Q12H 3 days #6 caps 02/28/25 03/02/25 Rx monohydrate/macrocrystals 100 mg capsule (Macrobid) New Prescriptions to Start Prescriptions: Allergies Allergy/AdvReac Type Severity Reaction Status Date / Time Penicillins Allergy Hives Verified 03/02/25 12:48 Exam Data for Last 24 hours Vital signs and Labs for Last 24 Hours: Temp Pulse Resp BP Pulse Ox O2 Del Method 97.0 F L 65 18 125/68 98 Room Air 03/02/25 15:04 03/02/25 15:04 03/02/25 15:04 03/02/25 15:04 03/02/25 15:04 03/02/25 15:04 Laboratory Results - last 24 hr 03/02/25 09:38: Urine Color Brown, Urine Appearance Cloudy, Urine pH 7.5, Ur Specific [place] 1.020, Urine Protein 1+ A, Urine Glucose (UA) Negative, Urine Ketones Negative, Urine Blood Negative, Urine Nitrate Negative, Urine Bilirubin 1+ A, Urine Urobilinogen 2.0, Ur Leukocyte Esterase Negative, Urine RBC None, Urine WBC None, Ur Squamous Epith Cells 3-5, Amorphous Sediment 1+, Urine Bacteria 1+, Fine Granular Casts Occasional 03/02/25 09:53: WBC 3.2 L D, RBC 4.69, Hgb 13.9, Hct 40.8, MCV 87.0, MCH 29.6, MCHC 34.1, RDW 12.5, Plt Count 228, MPV 10.7 H, Neut % (Auto) 56.3, Lymph % (Auto) 25.6, [place] % (Auto) 14.7 H, Eos % (Auto) 2.5, Baso % (Auto) 0.6, Neut # (Auto) 1.8, Lymph # (Auto) 0.8, [place] # (Auto) 0.5, Eos # (Auto) 0.1, Baso # (Auto) 0.0, PT 10.7, INR 0.96, Sodium 141, Potassium 4.3, Chloride 101, Carbon Dioxide 34 H, Anion Gap 10.3, BUN 8 D, Creatinine 0.80, Estimated Creat Clear 83, Estimated GFR 76, Est GFR ( Amer) 92, Glucose 96, Lactate 1.0, Calcium 8.9, Total Bilirubin 1.8 H, AST 1500 H* D, ALT 827 H*, Alkaline Phosphatase 144 H, Total Protein 7.3, Albumin 5.0, Globulin 2.3, Albumin/Globulin Ratio 2.2 H, Lipase 81 I & O for Last 24 hours: Intake & Output 02/27/25 02/28/25 03/01/25 03/02/25 23:59 23:59 23:59 23:59 Intake Total 200 / 200 Output Total 0 / 0 Balance 200 / 200 Weight 145 lb 2 oz *Routine HEENT Exam Head: Present normocephalic Eye: Present EOMI and PERRL ENT: Present mucous membranes moist *Routine Neck Exam Neck: Present supple *Routine Respiratory Exam Respiratory: Present CTA bilaterally *Routine Cardiovascular Exam Cardiovascular: Present RRR *Routine Abdominal Exam Abdominal: Present soft and normoactive bowel sounds; Absent tenderness *Routine Rectal Exam Rectal:: deferred *Routine Genitalia Exam Genitalia:: deferred *Routine Extremities Exam Extremities: Absent cyanosis, clubbing or edema *Routine Skin Exam Skin: Present warm; Absent rash *Routine Neurological Exam Neurological: Present alert and oriented X3 Assessment and Plan *Assessment and plan (1) Choledocholithiasis: Status: Acute Category: Medical Code(s): K80.50 - Calculus of bile duct without cholangitis or cholecystitis without obstruction (2) Epigastric abdominal pain: Status: Acute Category: Medical Code(s): R10.13 - Epigastric pain (3) Elevated liver enzymes: Status: Acute Category: Medical Code(s): R74.8 - Abnormal levels of other serum enzymes Plan A/P: 1. History of gallstone pancreatitis and recent cholecystectomy with small sand-like gallstones with short interval representing with pain and elevated liver chemistries?suspect choledocholithiasis is the preprocedural diagnosis. The patient will be anesthetized/sedated using MAC sedation. The patient has been seen and examined. Cardiac and lung assessment prior to the examination is stable. Proceed with planned ERCP.
--- NOTE | 2025-03-02 16:20 | P.PCN_ITS ---
[facility] Procedure Note Date: 03/02/25 Time: 16:59 Procedure Note:: ERCP procedure Report: Endoscopic retrograde cholangiopancreatography with biliary sphincterotomy and balloon extraction Endoscopist: Juan Manuel Sher II, MD Referring Physician: Ishan Yuen MD/MATT Chavira Date of Procedure: March 02, 2025 Equipment: Olympus 180 side viewing endoscope duodenoscope Sedation: MAC sedation Indication: Mrs. Oh is a 49-year-old female who is here for diagnostic/therapeutic ERCP. The patient did have biliary pancreatitis and was admitted in [facility] and diagnosed with gallstones. She had ultrasound, CAT scan and MRCP. There was discussion of ERCP at that time. The patient returned home and was seen by Ishan Yuen MD and the patient represented on February 26, 2025 with recurrent pain located in the right upper quadrant and presented to the emergency department. The CAT scan showed a hydropic gallbladder with surrounding edema and fluid. The patient had laparoscopic cholecystectomy on 02/27 and was found to have an acutely inflamed edematous distended gallbladder with pericholecystic edema and numerous small granule stones within the gallbladder and cystic duct. These were milked back into the gallbladder and the cystic duct was then clipped. The patient did well postoperatively but then again had recurrent severe epigastric abdominal pain radiating into the back with intense nausea and 1 episode of vomiting this morning. She came to the ED and labs showed AST 1500, ALT 827, alkaline phosphatase 144 and total bilirubin 1.8. Her lipase was 81. There is high suspicion for choledocholithiasis. CT scans today showed minimal intrahepatic biliary ductal dilation which was unchanged from prior exam. The examination is deemed medically necessary for diagnostic/therapeutic ERCP. Procedure: Prior to the procedure, a history and physical exam was performed, and patient's medications and allergies were reviewed. The risks (including pancreatitis), benefits and alternatives of the sedation and procedure were discussed with the patient. All questions were answered and informed consent was obtained. The patient was brought to the fluoroscopic radiology room. Patient identification and proposed procedure were verified by the physician and the nurse. The patient was placed in a swimmer's position between left lateral decubitus and prone position and the scope was passed under direct vision. Throughout the procedure, the patient's blood pressure, pulse, and oxygen saturations were monitored continuously. The ERCP was accomplished without difficulty. The patient tolerated the procedure well. Findings: The duodenoscope was passed directly into the upper esophagus and advanced to the second portion of the duodenum. The fluoroscopic C arm was then placed into position prior to cannulation with the duodenoscope was centered in a L-shaped position fluoroscopically in the second portion of duodenum. The entire endoscopic exam was done in conjunction with fluoroscopy. The cannula was then inserted through the duodenoscope channel and preloaded with low osmolar contrast. The esophagus, stomach and duodenum were grossly normal. The ampulla was normal in appearance. The guidewire was initially used to cannulate and the pancreatic duct was cannulated first. Contrast was not injected but the wire was easily glided into the body and tail the gland. Next, the common bile duct was cannulated with a guidewire. The cholangiogram did show a 7 mm common bile duct with normal cystic duct stump. The cholangiogram did not show any initial stones within the common bile duct or common hepatic duct. However, the re appeared to be an impacted stone/filling defect at the ampulla and the distal CBD. A biliary sphincterotomy was performed. As soon as a sphincterotomy was performed 2 stones flowed out of the biliary system that were 3 and 4 mm and were the stone seen on cholangiogram impacted at the ampulla. A 9 did 12 mm sweeping balloon was inflated to 9 mm and swept through the biliary system from the left intrahepatic into the duodenum and there was the passage of bile, contrast and a couple flecks of debris. There was excellent decompression of the biliary system. The procedure was then ended. Impression: 1. 2 small impacted bile duct stones (3 and 4 mm) in the distal CBD at ampulla status post biliary sphincterotomy and extraction Plan: The patient should have clinical improvement. I will discuss the findings with the patient and family. Will begin clear liquids and advance diet in AM.
--- NOTE | 2025-03-02 17:04 | XR_ITS ---
FINAL REPORT CLINICAL HISTORY: ERCP > FLUORO 77.6 s 26.15 mGy FINDINGS: FLUOROSCOPY LESS THAN 1 HOUR HISTORY: ERCP FINDINGS: Fluoroscopic guidance was provided for ERCP injection. A single spot film was obtained. 77.6 seconds of fluoroscopy time were used, with a dosage of 26.15 mGy. IMPRESSION: As above. Reviewed, Interpreted and Dictated by Suman Escalera MD Transcribed by Brandy Hebert Authenticated and [facility]
[2025-03-02] MEDS: IOPAMIDOL-370 (76%);100ML BOTTLE 10 ML IV (17:07)
--- NOTE | 2025-03-02 17:16 | P.PNANES_ITS ---
[facility] Anesthesia Record Part I Anesthesia Record I Intake, IV Amount: 600 Hydration: Adequate Estimated blood loss (mL): 0 Urine output (mL): 0 Blood Pressure: 100/60 SaO2: 95 Pulse Rate: 72 Airway Patency: Patent Respiratory Rate: 16 Temperature: 97.5 F Patient is:: Awake and Stable Stable to PACU at:: 17:10
--- NOTE | 2025-03-02 17:42 | PC.NURSE ---
AXILLARY TEMP 96.6, WARM BLANKETS APPLIED
[2025-03-02] MEDS: CEFDINIR 300MG CAPSULE 300 MG PO (20:22)
--- NOTE | 2025-03-03 02:34 | PC.NURSE ---
Pt AOx4, pleasant. Post ERCP today. Continually denies pain or any additional needs. Currently resting in bed with eyes closed. Respirations even and unlabored. Tolerating room air well. Bed is low, locked, and call light is in reach. at bedside.
[2025-03-03 04:00] VITALS: BP 90/42; PULSE 71; RESP 16; TEMP 36.7; O2SAT 94; BMI 29.1
[2025-03-03 04:34] VITALS: BP 101/59
[2025-03-03 06:21] LABS: Hematocrit 38.4 % (37.0-47.0); Hemoglobin 13.1 g/dL (12.2-16.2); Immature Granulocytes % 0.3 %; Mean Corpuscular HGB Conc 34.1 g/dL (31.8-35.4); Mean Corpuscular Hemoglobin 29.1 pg (27.0-31.2); Mean Corpuscular Volume 85.3 fl (81-99); Nucleated Red Blood Cells % 0 %; Platelet Count 235 K/mm3 (142-424); Red Blood Count 4.50 M/mm3 (4.20-5.40); Red Cell Distribution Width-SD 38.1 fL; White Blood Count 6.8 K/mm3 (4.8-10.8)
[2025-03-03 06:27] LABS: Albumin Level 4.5 g/dl (3.5-5.0); Chloride 105 mmol/L (98-107); Potassium 4.2 mmoL/L (3.5-5.1); Sodium 137 mmol/L (136-145)
[2025-03-03 06:29] LABS: Blood Urea Nitrogen 10 mg/dl (7-17); Creatinine Clearance Estimated 94 mL/min (50-200); Creatinine,Serum 0.80 mg/dl (0.52-1.04); Estimated Glomerular Filt Rate 76 ml/min (>60); GFR (African American) 92 ML/MIN (>60)
[2025-03-03 06:30] LABS: Albumin/Globulin Ratio 2.3 (1.1-1.8); Alkaline Phosphatase 166 U/L (38-126); Anion Gap 9.2 mEq/L (5-15); Bilirubin,Total 1.4 mg/dl (0.2-1.3); Calcium 8.6 mg/dl (8.4-10.2); Carbon Dioxide 27 mmol/L (22.0-30.0); Globulin 2.0 g/dL (1.3-3.2); Glucose 121 mg/dl (74-100); Magnesium 2.0 mg/dl (1.6-2.3); Total Protein,Serum 6.5 g/dl (6.3-8.2)
[2025-03-03 06:38] LABS: Alanine Aminotransferase 952 U/L (12-78)
[2025-03-03 06:41] LABS: Aspartate Amino Transferase 899 U/L (14-36)
--- NOTE | 2025-03-03 07:05 | EXP.SURG.PN ---
Subjective Narrative: Patient feels better Exam Data for Last 24 hours Vital signs and Labs for Last 24 Hours: Temp Pulse Resp BP Pulse Ox O2 Del Method 98.0 F 71 16 101/59 L 94 L Room Air 03/03/25 04:00 03/03/25 04:00 03/03/25 04:00 03/03/25 04:34 03/03/25 04:00 03/03/25 06:44 Laboratory Results - last 24 hr 03/02/25 09:38: Urine Color Brown, Urine Appearance Cloudy, Urine pH 7.5, Ur Specific [place] 1.020, Urine Protein 1+ A, Urine Glucose (UA) Negative, Urine Ketones Negative, Urine Blood Negative, Urine Nitrate Negative, Urine Bilirubin 1+ A, Urine Urobilinogen 2.0, Ur Leukocyte Esterase Negative, Urine RBC None, Urine WBC None, Ur Squamous Epith Cells 3-5, Amorphous Sediment 1+, Urine Bacteria 1+, Fine Granular Casts Occasional 03/02/25 09:53: WBC 3.2 L D, RBC 4.69, Hgb 13.9, Hct 40.8, MCV 87.0, MCH 29.6, MCHC 34.1, RDW 12.5, Plt Count 228, MPV 10.7 H, Neut % (Auto) 56.3, Lymph % (Auto) 25.6, [place] % (Auto) 14.7 H, Eos % (Auto) 2.5, Baso % (Auto) 0.6, Neut # (Auto) 1.8, Lymph # (Auto) 0.8, [place] # (Auto) 0.5, Eos # (Auto) 0.1, Baso # (Auto) 0.0, PT 10.7, INR 0.96, Sodium 141, Potassium 4.3, Chloride 101, Carbon Dioxide 34 H, Anion Gap 10.3, BUN 8 D, Creatinine 0.80, Estimated Creat Clear 83, Estimated GFR 76, Est GFR ( Amer) 92, Glucose 96, Lactate 1.0, Calcium 8.9, Total Bilirubin 1.8 H, AST 1500 H* D, ALT 827 H*, Alkaline Phosphatase 144 H, Total Protein 7.3, Albumin 5.0, Globulin 2.3, Albumin/Globulin Ratio 2.2 H, Lipase 81 03/03/25 05:38: WBC 6.8 D, RBC 4.50, Hgb 13.1, Hct 38.4, MCV 85.3, MCH 29.1, MCHC 34.1, RDW 12.4, Plt Count 235, MPV 10.9 H, Neut % (Auto) 88.3 H, Lymph % (Auto) 7.3 L, [place] % (Auto) 4.1, Eos % (Auto) 0.0 L, Baso % (Auto) 0.0 L, Neut # (Auto) 6.0, Lymph # (Auto) 0.5 L, [place] # (Auto) 0.3, Eos # (Auto) 0.0, Baso # (Auto) 0.0, Sodium 137, Potassium 4.2, Chloride 105, Carbon Dioxide 27, Anion Gap 9.2, BUN 10, Creatinine 0.80, Estimated Creat Clear 94, Estimated GFR 76, Est GFR ( Amer) 92, Glucose 121 H D, Calcium 8.6, Magnesium 2.0 D, Total Bilirubin 1.4 H, AST 899 H* D, ALT 952 H*, Alkaline Phosphatase 166 H, Total Protein 6.5, Albumin 4.5, Globulin 2.0, Albumin/Globulin Ratio 2.3 H I & O for Last 24 hours: Intake & Output 02/28/25 03/01/25 03/02/25 03/03/25 11:59 11:59 11:59 11:59 Intake Total 100 / 100 700 / 700 Output Total 240 / 240 Balance 100 / 100 460 / 460 Weight 140 lb 158 lb 4.811 oz *Routine Abdominal Exam Abdominal: Present soft; Absent tenderness Progress Note: A&P Assessment and plan (1) Choledocholithiasis: Status: Acute Assessment and plan: Laboratory studies essentially stable. This likely will take some time to clear. May advance diet. Probable discharge later.
[2025-03-03 07:21] LABS: RBC Morphology Normal; Total Cells Counted 100
[2025-03-03 07:24] VITALS: BP 94/51; PULSE 66; RESP 18; TEMP 36.6; O2SAT 97
[2025-03-03] MEDS: CEFDINIR 300MG CAPSULE 300 MG PO (07:56)
--- NOTE | 2025-03-03 09:20 | HMH.PHAAMS2 ---
- Antimicrobial Stewardship Review culture & sensitivity review Stewardship interventions: reviewed - no change Comments: suspected aspiration pneumo, cefdinir po started empirically
--- NOTE | 2025-03-03 11:10 | P.DS_ITS ---
General Admission date:: 03/02/25 HPI HPI HPI: Amee Oh is a 49-year-old female with a medical history significant for anxiety/depression who presented with progressive abdominal pain, nausea/vomiting since last night. Patient had a cholecystectomy on 02/27/2025, and did well postoperatively. She denies fever/chills, but does states she is has a history of gallstone pancreatitis in the past. Workup in the ED significant for WBC 3.2, total bilirubin 1.8, AST/ALT 15 100/827, ALP 144 CT abdomen/pelvis shows minimal intrahepatic biliary ductal dilatation, new ground glass opacities in bilateral lobes. She was given cefepime, Flagyl in the ED. Given these findings, ED reached out to Dr. Sher with GI who recommended ERCP today. I also excepted patient for further evaluation and management. From GI note: Patient is a 49-year-old female whom I had seen as an outpatient in November of this year as a self-referral due to history of apparent biliary pancreatitis at which time she had been admitted in [facility] and was diagnosed with biliary pancreatitis. At that time she had undergone ultrasound, CT scan, and MRCP. She states that she did not require ERCP at that time although discussion was being held regarding this and also consideration was being held regarding cholecystectomy during that index admission however the patient elected to be discharged and follow-up as an outpatient. When I saw her in the office in November recommendations were to proceed with outpatient cholecystectomy due to her prior history of apparent biliary pancreatitis. Patient was hoping to wait until beginning of the year for cholecystectomy apparently. However she has had some episodes of acute pain over the past couple weeks which were usually self- limited however in the evening of 02/26/2025 she developed recurrent pain similar to previous symptoms located in the right upper quadrant and presented to the emergency department where CT scan revealed findings consistent with hydropic gallbladder with surrounding edema and fluid. She had normal white blood cell count. Liver function test essentially normal. Lipase was essentially normal at that time. During that hospitalization she was taken to the operating room and underwent laparoscopic cholecystectomy in the afternoon of 02/27/25 at which time she was found to have acutely inflamed edematous distended gallbladder with Pericholecystic edema and fluid with numerous small granule stones within the gallbladder and including the proximal cystic duct which were able to be milked back into the gallbladder body prior to clipping the cystic duct. Intraoperative cholangiogram was not performed due to the inflammation and potential for catastrophic common bile duct injury if attempted. It was explained to the patient's family and patient postoperatively that there is the possibility of common duct stone. Patient remained in inpatient overnight and was feeling quite well the following morning at which time laboratory assessment was within reasonable limits and she was discharged home. Overnight in the evening of 03/01/2025 to 03/02/2025 she developed onset of epigastric pain. She had associated nausea with vomiting. She presented back to the emergency department at which time laboratory evaluation reveals AST of 1500, ALT 827, alkaline phosphatase 144, bilirubin 1.8. Surgery was consulted. . Hospital Course Hospital Course Hospital Course: Amee Oh is a 49-year-old female with a medical history significant for anxiety/depression who presented with progressive abdominal pain, nausea/vomiting since last night. Patient had a cholecystectomy on 02/27/2025, and did well postoperatively. She denies fever/chills, but does states she is has a history of gallstone pancreatitis in the past. Workup in the ED significant for WBC 3.2, total bilirubin 1.8, AST/ALT 15 100/827, ALP 144 CT abdomen/pelvis shows minimal intrahepatic biliary ductal dilatation, new ground glass opacities in bilateral lobes. She was given cefepime, Flagyl in the ED. Given these findings, ED reached out to Dr. Sher with GI who recommended ERCP today. I also excepted patient for further evaluation and management. #Choledocholithiasis #Transaminitis #Recent cholecystectomy ? GI consulted, s/p ERCP revealing 2 small impacted bile duct stones s/p biliary sphincterotomy and extraction on 03/02/2025. Patient tolerated procedure well, abdominal pain improved. ? No cholangitis noted, WBC 6.8 and no signs of sepsis. ? Overall, patient is doing well today. Tolerating diet without issues. No abdominal pain. LFTs slightly better today bili/AST/ALT/ALP 1.4/899/952/166. Given improvement in symptoms, this is likely from post ERCP. ? Will follow-up with GI and general surgery within 1 week. Continue hydrocodone as needed for pain. #Aspiration pneumonia ? Noted on CT abdomen/pelvis with bibasilar opacities, WBC normal, no signs of sepsis. ? Treated with cefdinir, discharged with cefdinir 300 mg for total of 5 days. #Anxiety/depression ? Continue home bupropion 75 mg twice daily. Exam Data for Last 24 hours Vital signs and Labs for Last 24 Hours: Temp Pulse Resp BP Pulse Ox O2 Del Method 97.9 F 66 18 94/51 L 97 Room Air 03/03/25 07:24 03/03/25 07:24 03/03/25 07:24 03/03/25 07:24 03/03/25 07:24 03/03/25 10:22 Laboratory Results - last 24 hr 03/03/25 05:38: WBC 6.8 D, RBC 4.50, Hgb 13.1, Hct 38.4, MCV 85.3, MCH 29.1, MCHC 34.1, RDW 12.4, Plt Count 235, MPV 10.9 H, Neut % (Auto) 88.3 H, Lymph % (Auto) 7.3 L, [place] % (Auto) 4.1, Eos % (Auto) 0.0 L, Baso % (Auto) 0.0 L, Neut # (Auto) 6.0, Lymph # (Auto) 0.5 L, [place] # (Auto) 0.3, Eos # (Auto) 0.0, Baso # (Auto) 0.0, Total Counted 100, Neutrophils % (Manual) 85 H, Lymphocytes % (Manual) 9 L, Monocytes % (Manual) 6, Platelet Estimate Normal, RBC Morphology Normal, Sodium 137, Potassium 4.2, Chloride 105, Carbon Dioxide 27, Anion Gap 9.2, BUN 10, Creatinine 0.80, Estimated Creat Clear 94, Estimated GFR 76, Est GFR ( Amer) 92, Glucose 121 H D, Calcium 8.6, Magnesium 2.0 D, Total Bilirubin 1.4 H, AST 899 H* D, ALT 952 H*, Alkaline Phosphatase 166 H, Total Protein 6.5, Albumin 4.5, Globulin 2.0, Albumin/Globulin Ratio 2.3 H I & O for Last 24 hours: Intake & Output 02/28/25 03/01/25 03/02/25 03/03/25 23:59 23:59 23:59 23:59 Intake Total 800 / 800 360 / 360 Output Total 0 / 240 240 / 240 Balance 800 / 560 120 / 120 Weight 65.828 kg 71.804 kg Microbiology Reports for the Last 24 Hours: Microbiology 03/02/25 10:39 Blood Blood Culture - Preliminary NO GROWTH AFTER 24 HOURS 03/02/25 10:34 Blood Blood Culture - Preliminary NO GROWTH AFTER 24 HOURS Constitutional Constitutional: no acute distress *Routine HEENT Exam Head: Present normocephalic Eye: Present EOMI and PERRL ENT: Present mucous membranes moist *Routine Neck Exam Neck: Present supple; Absent lymphadenopathy *Routine Respiratory Exam Respiratory: Present CTA bilaterally *Routine Cardiovascular Exam Cardiovascular: Present RRR *Routine Abdominal Exam Abdominal: Present soft; Absent tenderness *Routine Extremities Exam Extremities: Absent cyanosis, clubbing or edema *Routine Skin Exam Skin: Present warm; Absent rash *Routine Neurological Exam Neurological: Present alert and oriented X3 Results Data Completed and Pending Labs on day of discharge: Labs from last 24 hours 03/03/25 05:38 WBC 6.8 D RBC 4.50 Hgb 13.1 Hct 38.4 MCV 85.3 MCH 29.1 MCHC 34.1 RDW 12.4 Plt Count 235 MPV 10.9 H Neut % (Auto) 88.3 H Lymph % (Auto) 7.3 L [place] % (Auto) 4.1 Eos % (Auto) 0.0 L Baso % (Auto) 0.0 L Neut # (Auto) 6.0 Lymph # (Auto) 0.5 L [place] # (Auto) 0.3 Eos # (Auto) 0.0 Baso # (Auto) 0.0 Total Counted 100 Neutrophils % (Manual) 85 H Lymphocytes % (Manual) 9 L Monocytes % (Manual) 6 Platelet Estimate Normal RBC Morphology Normal Sodium 137 Potassium 4.2 Chloride 105 Carbon Dioxide 27 Anion Gap 9.2 BUN 10 Creatinine 0.80 Estimated Creat Clear 94 Estimated GFR 76 Est GFR ( Amer) 92 Glucose 121 H D Calcium 8.6 Magnesium 2.0 D Total Bilirubin 1.4 H AST 899 H* D ALT 952 H* Alkaline Phosphatase 166 H Total Protein 6.5 Albumin 4.5 Globulin 2.0 Albumin/Globulin Ratio 2.3 H Preliminary micro results at discharge 03/02/25 10:39 Blood Culture - Preliminary Blood NO GROWTH AFTER 24 HOURS 03/02/25 10:34 Blood Culture - Preliminary Blood NO GROWTH AFTER 24 HOURS DS: Diagnosis Discharge Diagnosis (1) Choledocholithiasis: Status: Acute Code(s): K80.50 - Calculus of bile duct without cholangitis or cholecystitis without obstruction Meds Home Medications and Allergies Home Medications ?Medication ?Instructions ?Recorded ?Confirmed ?Type bupropion HCl 75 mg tablet 75 mg PO BID 02/27/2503/02 History hydrocodone 5 mg-acetaminophen 325 1 tab PO Q4HP PRN M oderate To 02/28/25 03/02/25 Rx mg tablet Severe Pain (4-10) 3 days #1 5 tabs cefdinir 300 mg capsule 300 mg PO BID 4 days #8 caps 03/03/25 Rx New Prescriptions to Start Prescriptions: cefdinir Robb Marion Allergies Allergy/AdvReac Type Severity Reaction Status Date / Time Penicillins Allergy Hives Verified 03/02/25 12:48 Discharge Plan Disposition Patient Disposition: Home, Self-Care Condition: Fair Discharge Order Discharge Orders: Discharge Order (Routine); Ordered 03/03/25 Ordered By: Robb Marion Follow up Plan Follow up with: Ishan Yuen MD [Staff Physician, General Surgery] - 03/09/25 1:30 pm Juan Manuel Sher II, MD [Staff Physician, Gastroenterology] - 06/06/25 11:00 am Prescriptions/Medication Reconciliation: New cefdinir 300 mg Capsule 300 mg PO BID 4 Days Qty: 8 0RF Continued bupropion HCl 75 mg tablet 75 mg PO BID Patient Comments: TAKE 1 TABLET BY MOUTH TWICE DAILY hydrocodone-acetaminophen 5-325 mg Tablet 1 tab PO Q4HP PRN (Reason: Moderate To Severe Pain (4-10)) 3 Days Qty: 15 0RF Discontinued nitrofurantoin monohyd/m-cryst [Macrobid] 100 mg capsule 100 mg PO Q12H 3 Days Qty: 6 0RF Rx Instructions: must administer with a meal/food Problem Reconciliation Problems Reviewed?: Yes Patient Discharge Instructions Patient Instructions: DI for Epigastric Pain, DI for Biliary Colic Print Language: Georgian Providers Primary Care Provider: Kimi Puente Admit Provider: Robb Marion Attending Provider: Robb Marion
--- NOTE | 2025-03-03 11:42 | EXP.ANES.II ---
[facility] Anesthesia Record Part II Anesthesia Record Part II Discharge Time: 17:30 Destination: Medical Surgical Department PACU nurse assessment reviewed?: Yes Patient Condition:: Good Anesthesia Complications:: None Swallowing reflex intact?: Yes Airway Patency: Patent Cyanosis?: No Blood Pressure: 117/52 SaO2: 96 Respiratory Rate: 18 Pulse Rate: 74 Temperature: 97.8 F Mental Status: Alert & Oriented Pain level:: 0 Nausea and/or vomitting:: None Intake, IV Amount: 0 Hydration: Adequate
[2025-03-03 11:43] VITALS: BP 117/52; PULSE 74; RESP 18; TEMP 36.6; O2SAT 96
--- NOTE | 2025-03-07 11:34 | SW/DCPLANNER ---
Spoke with patient on the phone. Patient stated that she is aware of her upcoming appointments. Patient stated that she was able to get her medicine picked up. Patient stated that she has no concerns or questions at this time. David Molina
== END 2025-03-03 12:00 | disposition home or self-care (01) | DRG 356 ==
LOC: ER 12:11 → 2ND 12:39
PROVIDERS: Internal Medicine Gastroenterology; Admitting Provider Student in an Organized Health Care Education/Training Program; Emergency Provider Student in an Organized Health Care Education/Training Program; PCP Nurse Practitioner Family; Visit Provider Student in an Organized Health Care Education/Training Program
PROC: 0FC98ZZ Extirpation of Matter from Common Bile Duct, Via Natural or Artificial Opening Endoscopic (ICD-10-PCS; CPT 43260; principal; 2025-03-02 15:00)
DX: K91.86 Retained cholelithiasis following cholecystectomy (principal); J69.0 Pneumonitis due to inhalation of food and vomit; K85.10 Biliary acute pancreatitis without necrosis or infection; N39.0 Urinary tract infection, site not specified; K82.1 Hydrops of gallbladder; F41.9 Anxiety disorder, unspecified; F32.A Depression, unspecified; F17.200 Nicotine dependence, unspecified, uncomplicated; E87.6 Hypokalemia; Z90.49 Acquired absence of other specified parts of digestive tract; Z88.0 Allergy status to penicillin; Z79.899 Other long term (current) drug therapy
CPT/HCPCS: 74018; 74177; 76000; 80053; 81001; 83605; 83690; 83735; 85007; 85025; 85610; 87040; 99285; C1726; C1769; J0692; J1100; J1596; J1836; J1885; J2003; J2250; J2270; J2405; J2704; J2710; J3010; J7120; Q9967